=== PATIENT | male | born 1935 | race Caucasian/White ===

== ENCOUNTER 2017-09-16 16:37 | Emergency (ER) | payer MEDICARE, OTHER ==
--- NOTE | 2017-09-16 17:44 | RAD ---
2 VIEW CHEST: Date: 09/16/17 HISTORY: Cough. COMPARISON: 09/04/17. FINDINGS: Elevated right hemidiaphragm again noted. Mild cardiomegaly again noted with mild aortic calcificatio n. Vascular markings are prominent and stable. No focal infiltrate or consolidation. No interval sorensen ge identified. No evidence of effusion. IMPRESSION: Stable chest findings without acute interval change. POS: [facility]
== END 2017-09-16 17:29 | disposition home or self-care (01) ==
LOC: SCSER 16:37
DX: R05 Cough (principal); I25.10 Atherosclerotic heart disease of native coronary artery without angina pectoris; I10 Essential (primary) hypertension; E11.9 Type 2 diabetes mellitus without complications; F32.9 Major depressive disorder, single episode, unspecified; Z87.891 Personal history of nicotine dependence; Z79.82 Long term (current) use of aspirin; Z79.899 Other long term (current) drug therapy
CPT/HCPCS: 71046

== ENCOUNTER 2018-06-04 14:58 | Outpatient (CLI) | payer MEDICARE, OTHER | END 2018-06-04 14:59 | disposition home or self-care (01) | LOC: DTY/OP 14:58 | PROVIDERS: ATTEND Family Medicine | DX: E11.9 Type 2 diabetes mellitus without complications (principal); I10 Essential (primary) hypertension | CPT/HCPCS: 97802 ==

== ENCOUNTER 2018-07-04 08:40 | Outpatient (CLI) | payer MEDICARE, OTHER ==
--- NOTE | 2018-07-04 10:22 | RAD ---
TWO VIEW CHEST: HISTORY: Cardiac pacemaker evaluation. COMPARISON: 09/16/2017. FINDINGS: Dual-lead cardiac pacemaker device has been placed. Atrial lead has somewhat of a midline position. Recommend clinical correlation. The heart is enlarged. There is mild vascular engorgement. The lungs and vascular markings appear s table from 09/16/2017. IMPRESSION: Mild vascular engorgement appears stable. Pacemaker leads have been placed. Recommend correlation r egarding position of the leads. POS: [facility]
== END 2018-07-04 08:41 | disposition home or self-care (01) ==
LOC: BICRAD 08:40
PROVIDERS: ATTEND Internal Medicine Cardiovascular Disease
DX: Z48.812 Encounter for surgical aftercare following surgery on the circulatory system (principal); Z95.0 Presence of cardiac pacemaker
CPT/HCPCS: 71046

== ENCOUNTER 2018-07-08 10:45 | Outpatient (CLI) | payer MEDICARE, OTHER ==
[2018-07-08 12:57] LABS: #Basophils 0.1 thou/uL (0.0-0.2); #Eosinphils 0.3 thou/uL (0.0-0.7); #Lymphocytes 0.9 thou/uL (1.20-3.40); #Monocytes 0.4 thou/uL (0.11-0.59); #Neutrophils 7.5 thou/uL (1.40-6.50); %Basophils 0.7 % (0.0-1.0); %Eosinophils 2.9 % (0.0-10.0); %Lymphocytes 10.2 % (21.0-51.0); %Monocytes 4.6 % (0.0-10.0); %Neutrophils 81.5 % (42.0-75.0); Hemoglobin 13.5 g/dL (14.0-18.0); Mean Corpuscular HGB CONC 33.6 g/dL (32.0-36.0); Mean Corpuscular Hemoglobin 33.3 pg (27.0-31.0); Mean Corpuscular Volume 98.9 fL (78.0-98.0); Mean Platelet Volume 7.6 fL (7.4-10.4); Platelet Count 150 thou/uL (130-400); RBC Distribution Width 12.9 % (11.5-14.5); Red Blood Cell (RBC) Count 4.06 mill/uL (4.70-6.10); White Blood Cell (WBC) Count 9.2 thou/uL (4.8-10.8)
[2018-07-08 13:11] LABS: ALT (SGPT) 27 U/L (8-55); AST (SGOT) 24 U/L (5-34); Albumin 4.1 g/dL (3.4-4.8); Alkaline Phosphatase 90 U/L (40-150); Anion Gap 16 mmol/L (10-20); BUN (Urea Nitrogen) 29 mg/dL (8.4-25.7); Bilirubin, Direct 0.3 mg/dL (0.1-0.3); Bilirubin, Total 0.6 mg/dL (0.2-1.2); Calc. Creatinine Clearance 0 mL/min (70-130); Carbon Dioxide 26 mmol/L (23-31); Chloride 100 mmol/L (98-107); Estimated GFR-MDRD 48; Glucose 170 mg/dL (83-110); Potassium 4.7 mmol/L (3.5-5.1); Protein, Total 7.4 g/dL (5.8-8.1); Sodium 137 mmol/L (136-145)
== END 2018-07-08 10:46 | disposition home or self-care (01) ==
LOC: LABBT 10:45
PROVIDERS: ATTEND Internal Medicine Cardiovascular Disease
DX: Z01.812 Encounter for preprocedural laboratory examination (principal); T82.528A Displacement of other cardiac and vascular devices and implants, initial encounter
CPT/HCPCS: 80048; 80076; 85025

== ENCOUNTER 2018-07-11 05:44 | Inpatient (IN) | payer MEDICARE, OTHER ==
[2018-07-11] MEDS ORDERED: Heparin 10,000 UNITS/1 ML VIAL ONE ×2 (06:24→06:25)
[2018-07-11] MEDS ORDERED: Heparin 0 ML ONE (06:25)
[2018-07-11] MEDS ORDERED: Vancomycin HCl 500 MG VIAL ONE (06:27)
[2018-07-11] MEDS ORDERED: Clindamycin/D5W 900 mg/50 ml Premix Bag ONE (06:27)
[2018-07-11] MEDS ORDERED: Lidocaine 1% (PF) 30 ML VIAL ONE (06:28)
[2018-07-11] MEDS ORDERED: Levofloxacin 500 mg/D5W 100 ml Premix Bag ONE (06:28)
[2018-07-11 07:08] LABS: Cardiac Risk 2.8 (Less than 4.5)
[2018-07-11] MEDS ORDERED: Midazolam HCl 2 mg/2 ml Vial ONE (07:12)
[2018-07-11] MEDS ORDERED: Fentanyl 100 MCG/2 ML VIAL ONE (07:13)
[2018-07-11] MEDS ORDERED: Sodium Chloride 0.9% 1,000 ML IV SCH ×2 (08:30→17:37)
[2018-07-11] MEDS ORDERED: Morphine 2 MG/ML SYRINGE ONE (09:22)
[2018-07-11] MEDS ORDERED: Morphine 4 MG/ML VIAL SLOW IVP SCH (09:30)
--- NOTE | 2018-07-11 11:06 | RAD ---
PORTABLE CHEST 1 VIEW: Date: 07/11/18 Time: 0845 hours HISTORY: Post cardiac device placement. FINDINGS/IMPRESSION: Comparison made with exam of 07/04/18. Left-sided pacemaker device is again seen with unchanged positions of the pacemaker leads. The heart size is enlarged. There is continued elevation of the right hemidiaphragm. No focal areas of consolid ation, pneumothoraces, jasmine pulmonary edema, or large effusions are seen. There is mild pulmonary va scular congestion. POS: [facility]
[2018-07-11 17:40] VITALS: BMI 23.7
[2018-07-11] MEDS ORDERED: Cephalexin 250 MG CAP PO SCH ×2 (17:45→21:00)
[2018-07-11] MEDS: Allopurinol 100 MG TAB PO SCH ×2 (18:21→20:34)
[2018-07-11] MEDS: Magnesium Oxide 400 MG TAB PO SCH (18:21)
[2018-07-11] MEDS: predniSONE 5 MG TAB PO SCH (18:21)
[2018-07-11] MEDS: Aspirin 81 mg Enteric Coated Tablet PO SCH (18:21)
[2018-07-11] MEDS: metFORMIN 500 MG TAB PO SCH (18:24)
[2018-07-11] MEDS: Cipro 250 MG TAB PO SCH (20:34)
[2018-07-11] MEDS: Acetaminophen 325 MG TAB PO PRN (20:50)
[2018-07-11] MEDS ORDERED: Atorvastatin Calcium 40 MG TAB PO SCH (21:00)
[2018-07-12] MEDS: Cipro 250 MG TAB PO SCH (05:42)
[2018-07-12] MEDS: Acetaminophen 325 MG TAB PO PRN (05:44)
[2018-07-12 06:40] LABS: Anion Gap 12 mmol/L (10-20); BUN (Urea Nitrogen) 27 mg/dL (8.4-25.7); Calc. Creatinine Clearance 39 mL/min (70-130); Calcium 8.9 mg/dL (7.8-10.44); Carbon Dioxide 22 mmol/L (23-31); Chloride 108 mmol/L (98-107); Cholesterol 89 mg/dl (< 200 Desired); Estimated GFR-MDRD 48; Glucose 103 mg/dL (83-110); HDL Cholesterol 30 mg/dL (>60 Neg Risk); LDL Cholesterol, Calculated 29 mg/dL; Potassium 4.4 mmol/L (3.5-5.1); Sodium 138 mmol/L (136-145); Triglycerides 152 mg/dL (Less than 150)
[2018-07-12 06:45] LABS: #Basophils 0.1 thou/uL (0.0-0.2); #Eosinphils 0.5 thou/uL (0.0-0.7); #Lymphocytes 1.3 thou/uL (1.20-3.40); #Monocytes 0.6 thou/uL (0.11-0.59); #Neutrophils 4.2 thou/uL (1.40-6.50); %Basophils 1.1 % (0.0-1.0); %Eosinophils 7.3 % (0.0-10.0); %Lymphocytes 19.2 % (21.0-51.0); %Monocytes 9.4 % (0.0-10.0); %Neutrophils 62.9 % (42.0-75.0); Hemoglobin 11.6 g/dL (14.0-18.0); Mean Corpuscular HGB CONC 33.8 g/dL (32.0-36.0); Mean Corpuscular Hemoglobin 33.4 pg (27.0-31.0); Mean Corpuscular Volume 98.8 fL (78.0-98.0); Mean Platelet Volume 7.7 fL (7.4-10.4); PLT Morphology Comment Appears Decreased; Platelet Count 109 thou/uL (130-400); RBC Distribution Width 12.8 % (11.5-14.5); Red Blood Cell (RBC) Count 3.48 mill/uL (4.70-6.10); White Blood Cell (WBC) Count 6.6 thou/uL (4.8-10.8)
--- NOTE | 2018-07-12 07:33 | EKG ---
Test Reason : LEAD REVISION Blood Pressure : / mmHG Vent. Rate : 079 BPM Atrial Rate : 079 BPM P-R Int : 162 ms QRS Dur : 076 ms QT Int : 386 ms P-R-T Axes : 062 -13 088 degrees QTc Int : 442 ms Normal sinus rhythm Inferior infarct (cited on or before 26-NOV-2015) Abnormal ECG When compared with ECG of 26-NOV-2015 12:53, Premature ventricular complexes are no longer Present Nonspecific T wave abnormality has replaced inverted T waves in Lateral leads Confirmed by CARLOS MATA ([id number]) on 07/12/2018 7:33:23 AM Referred By: CHLEY Confirmed By:CARLOS MATA
[2018-07-12] MEDS: Allopurinol 100 MG TAB PO SCH (08:40)
[2018-07-12] MEDS: Magnesium Oxide 400 MG TAB PO SCH (08:40)
[2018-07-12] MEDS: metFORMIN 500 MG TAB PO SCH (08:40)
[2018-07-12] MEDS: Aspirin 81 mg Enteric Coated Tablet PO SCH (08:40)
[2018-07-12] MEDS: predniSONE 5 MG TAB PO SCH (08:41)
[2018-07-12] MEDS ORDERED: Lisinopril 10 MG TAB PO SCH (09:00)
[2018-07-12 11:12] VITALS: BP 171/85; TEMP 97.9
--- NOTE | 2018-07-12 16:51 | DIS ---
DATE OF ADMISSION: 07/11/2018 DATE OF DISCHARGE: 07/12/2018 DISCHARGE DIAGNOSES: 1. Repositioning of dislodged atrial lead. 2. Postsurgical hypotension. 3. Uqxkxztr-pn-shbwye aortic stenosis, asymptomatic. 4. Former smoker. 5. Hypertension. 6. Hypercholesterolemia. 7. Diabetes. 8. Prostate cancer. 9. Dementia. DISCHARGE MEDICATIONS: 1. Cipro 500mg b.i.d. x5 days. 2. Atorvastatin 40 daily. 3. Amlodipine 5 mg daily. 4. Magnesium oxide 400 b.i.d. 5. Prednisone 5 mg q.a.m. 6. Metformin 500 mg b.i.d. 7. Namenda 10 mg b.i.d. 8. Lisinopril 10 daily. DISCHARGE DISPOSITION: The patient will be seen in 1 week for site check and in 3 months for pacemaker check. He is instructed that he needs to use antibiotic prophylaxis for any dental, GI or procedures with the aortic stenosis. HOSPITAL COURSE: Mr. De Guzman was seen in the office on July 03 as a new patient. He had a pacemaker placed on May 20, 2018 in [place]. On interrogation of the pacemaker, it was discovered that with atrial pacing that it would capture the ventricle. Chest x-ray confirmed that the atrial lead was dislodged. He came back for repositioning of the atrial lead. This was performed without difficulty and the lead did not appear to be significantly fibrosed. Towards the end of the procedure, he did develop hypotension with pressure in the 70s, but had no specific complaints. He was given intravenous fluids and ultimately his pressure was stabilized. He did for a short period of time have a sharp pleuritic chest pain after the procedure. A stat echo was performed, which revealed a trivial pericardial effusion. On examination, he did not have any significant paradox. It was felt best to observe him overnight. He did not have any further significant hypotension. He therefore will be discharged to be followed as an outpatient. Job ID: [id number] [facility]
--- NOTE | 2018-07-12 21:52 | CCL ---
PROCEDURE: Atrial lead repositioning. The patient was brought to the cardiac phlebotomist medical lab assistant and the left subclavian area was prepped and draped. Versed 1 mg and Fentanyl 25 mg given intravenously for 45 minutes of conscious sedation. 1% lidocaine was infiltrated. Using blunt and sharp dissection, the pacemaker pocket was opened and the pacemaker was removed. The atrial lead was disconnected from the pacemaker generator. Pulling the atrial lead, I was able to determine which suture tie down was the atrial lead as the atrial lead was fibrosed into the pocket. Pulling from where it was sutured down, the atrial lead was able to be removed without any dissection. The screw was retracted into the atrial lead. Using a straight wire, this was advanced into the right atrium. There was no significant anchoring of the atrial lead to the surrounding tissue. A J-wire was then inserted and the right atrial lead was screwed into the right atrium. Atrial lead/P-wave 1.3, threshold 0.5 volts. Impedance 380 ohms. The RV lead was also tested prior to the case through the pacemaker with resistance of 570 ohms, threshold 0.375 volts. R-wave of 7.0. The atrial tie down was positioned and secured in placed with two sutures of 0 silk. Subcutaneous pocket was irrigated with copious amounts of antibiotics solution. The atrial lead was attached to the pacemaker generator. Again, this was placed into the pocket and secured in place with one suture of 0 silk. The incision was then closed using two layers of running 3-0 Vicryl, one layer of running 4-0 Vicryl. Dermabond was placed on the incision. STEVE
== END 2018-07-12 12:16 | disposition home or self-care (01) | DRG 261 ==
LOC: CCL 05:44 → CCU 11:51 → 2NO 17:36
PROVIDERS: ADMIT Internal Medicine Cardiovascular Disease; ATTEND Internal Medicine Cardiovascular Disease
PROC: 02WA0MZ Revision of Cardiac Lead in Heart, Open Approach (ICD-10-PCS; principal; 2018-07-11)
DX: T82.120A Displacement of cardiac electrode, initial encounter (principal); I31.3 Pericardial effusion (noninflammatory); I95.9 Hypotension, unspecified; I35.0 Nonrheumatic aortic (valve) stenosis; I10 Essential (primary) hypertension; E78.00 Pure hypercholesterolemia, unspecified; E11.9 Type 2 diabetes mellitus without complications; C61 Malignant neoplasm of prostate; F03.90 Unspecified dementia, unspecified severity, without behavioral disturbance, psychotic disturbance, mood disturbance, and anxiety; Z79.82 Long term (current) use of aspirin; Z88.0 Allergy status to penicillin; I25.2 Old myocardial infarction; Z87.891 Personal history of nicotine dependence
CPT/HCPCS: 33215; 36415; 36416; 71045; 80048; 80061; 80076; 85025; 93005; 93010; 93306; 99152; 99153; J1644; J1956; J2001; J2250; J2270; J3010; J3370; J3490

== ENCOUNTER 2018-07-18 21:42 | Observation (INO) | payer MEDICARE, OTHER ==
[2018-07-18 23:14] LABS: #Basophils 0.1 thou/uL (0.0-0.2); #Eosinphils 0.5 thou/uL (0.0-0.7); #Lymphocytes 1.5 thou/uL (1.20-3.40); #Monocytes 0.6 thou/uL (0.11-0.59); %Basophils 0.9 % (0.0-1.0); %Eosinophils 5.5 % (0.0-10.0); %Lymphocytes 17.3 % (21.0-51.0); %Neutrophils 69.2 % (42.0-75.0); Hemoglobin 12.1 g/dL (14.0-18.0); Mean Corpuscular HGB CONC 34.2 g/dL (32.0-36.0); Mean Corpuscular Hemoglobin 33.6 pg (27.0-31.0); Mean Corpuscular Volume 98.1 fL (78.0-98.0); Mean Platelet Volume 7.1 fL (7.4-10.4); Platelet Count 149 thou/uL (130-400); RBC Distribution Width 12.9 % (11.5-14.5); White Blood Cell (WBC) Count 8.7 thou/uL (4.8-10.8)
[2018-07-18 23:34] LABS: ALT (SGPT) 23 U/L (8-55); AST (SGOT) 23 U/L (5-34); Albumin 4.1 g/dL (3.4-4.8); Alkaline Phosphatase 93 U/L (40-150); Anion Gap 13 mmol/L (10-20); BUN (Urea Nitrogen) 55 mg/dL (8.4-25.7); Bilirubin, Total 0.6 mg/dL (0.2-1.2); Calc. Creatinine Clearance 0 mL/min (70-130); Calcium 10.1 mg/dL (7.8-10.44); Carbon Dioxide 32 mmol/L (23-31); Chloride 97 mmol/L (98-107); Estimated GFR-MDRD 27; Globulin 3.4 g/dL (2.4-3.5); Glucose 173 mg/dL (83-110); Potassium 5.3 mmol/L (3.5-5.1); Protein, Total 7.5 g/dL (5.8-8.1); Sodium 137 mmol/L (136-145)
[2018-07-19] MEDS ORDERED: Calcium Carbonate 500 MG ChewTAB PO PRN (02:58)
[2018-07-19] MEDS ORDERED: Acetaminophen 325 MG TAB PO PRN (02:58)
[2018-07-19] MEDS ORDERED: Bisacodyl 5 MG TAB PO PRN (02:58)
[2018-07-19] MEDS ORDERED: Ondansetron PF 4 MG/2 ML Vial IVP PRN (02:58)
[2018-07-19] MEDS ORDERED: Acetaminophen 650 MG Suppository PR PRN (02:58)
[2018-07-19] MEDS ORDERED: Senokot S 8.6-50 MG TAB PO PRN (02:58)
[2018-07-19] MEDS ORDERED: Ondansetron ODT 4 MG TAB PO PRN (02:58)
[2018-07-19] MEDS ORDERED: Bisacodyl 10 MG SUPP PR PRN (02:58)
[2018-07-19] MEDS ORDERED: HumaLOG 300 UNITS/3 ML VIAL SC PRN ×2 (03:01)
[2018-07-19] MEDS ORDERED: Dextrose 5% in Water 1,000 ML IV PRN (03:01)
[2018-07-19] MEDS ORDERED: Dextrose 50% Abboject 50 ML SYRINGE SLOW IVP PRN (03:01)
[2018-07-19 03:51] LABS: #Basophils 0.1 thou/uL (0.0-0.2); #Eosinphils 0.6 thou/uL (0.0-0.7); #Lymphocytes 1.9 thou/uL (1.20-3.40); #Monocytes 0.9 thou/uL (0.11-0.59); %Basophils 1.1 % (0.0-1.0); %Eosinophils 5.5 % (0.0-10.0); %Lymphocytes 17.9 % (21.0-51.0); %Monocytes 8.3 % (0.0-10.0); %Neutrophils 67.3 % (42.0-75.0); Hemoglobin 11.2 g/dL (14.0-18.0); Mean Corpuscular HGB CONC 33.9 g/dL (32.0-36.0); Mean Corpuscular Hemoglobin 33.3 pg (27.0-31.0); Mean Platelet Volume 6.8 fL (7.4-10.4); Platelet Count 131 thou/uL (130-400); RBC Distribution Width 12.8 % (11.5-14.5); Red Blood Cell (RBC) Count 3.38 mill/uL (4.70-6.10); White Blood Cell (WBC) Count 10.4 thou/uL (4.8-10.8)
[2018-07-19 04:16] LABS: Albumin 3.6 g/dL (3.4-4.8); Anion Gap 12 mmol/L (10-20); BUN (Urea Nitrogen) 53 mg/dL (8.4-25.7); BUN/Creatinine Ratio 24.65; Calc. Creatinine Clearance 0 mL/min (70-130); Calcium 9.7 mg/dL (7.8-10.44); Carbon Dioxide 32 mmol/L (23-31); Chloride 100 mmol/L (98-107); Estimated GFR-MDRD 29; Glucose 118 mg/dL (83-110); Phosphorus 4.4 mg/dL (2.3-4.7); Potassium 4.9 mmol/L (3.5-5.1); Sodium 139 mmol/L (136-145)
--- NOTE | 2018-07-19 05:01 | HP ---
HISTORY OF PRESENT ILLNESS: This is an 83-year-old male with past medical history of hypertension, hyperlipidemia, diabetes mellitus, prostate CA, and dementia, presenting with bilateral lower extremity swelling. Patient was recently seen in the hospital for pacemaker not working. One of his pacemaker leads was not placed properly, so patient needed to be admitted to the hospital and pacemaker had to be fixed. After fixing the patient's pacemaker, patient was discharged on Sunday prior to the day of this admission. Patient stated that when he was at home, he started developing bilateral lower extremity edema. At this point, patient went to go see his primary care physician who told the patient to come to the hospital and to be further evaluated. At this point, patient denies any fever, chills, chest pain, palpitations, shortness of breath, abdominal pain, dysuria, hematuria, increase in frequency with urination, hematochezia, melena, fever, dizziness, or chills. Patient endorses bilateral lower extremity edema. REVIEW OF SYSTEMS: Positive for bilateral lower extremities. Otherwise, as documented in the HPI. All other systems were reviewed and are negative. PAST MEDICAL HISTORY: Significant for: 1. Hypertension. 2. Hyperlipidemia. 3. Diabetes mellitus type 2. 4. Prostate CA. 5. Dementia. 6. Kxhvwglk-hj-icvfxu aortic stenosis. 7. Former smoker. SURGICAL HISTORY: 1. Appendectomy. 2. . SOCIAL HISTORY: Patient is a former tobacco smoker. Patient smoked cigarettes for more than 10 years. Patient lives at home alone. Patient denies any illicit drugs. Patient denies any alcohol use. ALLERGIES: PATIENT IS ALLERGIC TO PENICILLINS, PENCICLOVIR ANALOGS. CURRENT MEDICATIONS: Patient takes: 1. Aspirin. 2. Lisinopril. 3. Hydrochlorothiazide. PHYSICAL EXAMINATION: VITAL SIGNS: Blood pressure is 134/61, heart rate is 111, respiratory rate is 18, and temperature is 98.5. GENERAL: Patient is not in any acute distress. Patient is awake, alert, and oriented x3. HEENT: Normocephalic and atraumatic. Pupils are equally round and reactive to light. Extraocular movements are intact. No scleral icterus. No conjunctival pallor. Mucous membranes are moist. NECK: Trachea is midline. Full range of motion. No JVD. LUNGS: Clear to auscultation bilaterally. No wheezing, no rales, no rhonchi appreciated. CARDIAC: Positive S1 and S2. Regular rate and rhythm. No murmurs, no gallops, no rubs appreciated. EXTREMITIES: Patient has 5/5 upper extremity strength with good pulses and patient has 5/5 lower extremity strength. Patient has bilateral pulses at the lower extremities. No edema noted. NEUROLOGIC: Cranial nerves 2 through 12 grossly intact. No neurologic deficits noted. SKIN: Warm, dry, and intact. PSYCHIATRIC: Patient is alert and oriented x3, not in acute distress. IMAGING DATA: Patient's chest x-ray shows cardiomegaly. No infiltrates noted. LABORATORY DATA: WBC is 8.7, hemoglobin is 12.1, hematocrit is 35.3, and platelet count is 149. Sodium is 137, potassium is 5.3, chloride is 97, carbon dioxide is 32, anion gap of 13, BUN is 55, creatinine is 2.28, and glucose is 173. ASSESSMENT AND PLAN: This is an 83-year-old male being admitted for: 1. Acute on chronic kidney injury. At this time, we have consulted Nephrology. We have ordered renal panel. We will follow up on the results in the a.m. We will continue the patient on gentle hydration. We will hold and discontinue all nephrotoxic drugs. 2. Diabetes mellitus type 2. At this point, we will control patient's blood sugar. Patient's blood sugar with insulin sliding scale. 3. Bilateral lower extremity edema. At this point, we are holding of Lasix. We have consulted Nephrology. We will follow up with supervisor powder and primer canning's recommendation. We will also follow up with Cardiology's recommendations. 4. Hyperkalemia. Patient's potassium is 5.3. We will repeat morning labs. We will follow up on morning labs. We will continue patient on current management. 5. Dementia. We will continue patient on home medication. 6. Prostate cancer. At this time, stable. We will continue to monitor the patient. 7. Deep venous thrombosis, gastrointestinal prophylaxis. Job ID: [id number]
--- NOTE | 2018-07-19 08:08 | RAD ---
CHEST ONE VIEW: History: Chest pain. Comparison: 07-11-18 FINDINGS: Heart size is enlarged. Mild pulmonary venous congestion. No pneumothorax. No acute osseous abnormal ity. Dual-lead pacer is in good position. IMPRESSION: Cardiomegaly and mild pulmonary venous congestion. POS: [facility]
--- NOTE | 2018-07-19 08:38 | ULT ---
STANDARD BILATERAL RENAL ULTRASOUND: HISTORY: Renal injury. FINDINGS: Urinary bladder pre-void volume is 265 mL. The right kidney measures 7.7 x 5 x 4.8 cm. The left kid johana measures 9.1 x 5.4 x 5.1 cm. No renal mass, hydronephrosis, or abnormal calcifications. IMPRESSION: No evidence of obstructive uropathy. POS: [facility]
[2018-07-19] MEDS ORDERED: Heparin 1,000 UNITS/ML VIAL ONE (09:37)
[2018-07-19] MEDS ORDERED: Famotidine 20 MG TAB ONE (09:37)
[2018-07-19] MEDS: Aspirin 81 mg Enteric Coated Tablet PO SCH (09:59)
[2018-07-19] MEDS: Amlodipine 5 MG TAB PO SCH (09:59)
[2018-07-19] MEDS: Famotidine 20 MG TAB PO SCH (10:00)
[2018-07-19] MEDS: predniSONE 5 MG TAB PO SCH (10:00)
[2018-07-19] MEDS: Magnesium Oxide 400 MG TAB PO SCH (10:00)
[2018-07-19] MEDS: Famotidine/PF 20 mg/2ml Vial SLOW IVP SCH (14:01)
[2018-07-19] MEDS: Heparin 5,000 UNITS/ML VIAL SC SCH ×2 (14:02→21:37)
[2018-07-19] MEDS ORDERED: Atorvastatin Calcium 40 MG TAB PO SCH (21:00)
--- NOTE | 2018-07-19 22:28 | CON ---
DATE OF CONSULTATION: 07/19/2018 REASON FOR CONSULTATION: Elevated creatinine. HISTORY OF PRESENT ILLNESS: This is an 83-year-old gentleman, who presented to the hospital at 4 a.m. today with a chief complaint of bilateral lower extremity swelling. The patient had a creatinine of 2.82, which improved to 2.15, baseline was 1.7; in 2016, it was 1.3. The patient has had no hematochezia, headache, numbness, tingling or weakness. REVIEW OF SYSTEMS: A 15-point review of systems was performed and negative except for what is noted above. GENERAL: HEAD: NECK: No swelling or lumps. NOSE: No epistaxis or discharge. EYES: No diplopia or pain. RESPIRATORY: CARDIOVASCULAR: GASTROINTESTINAL: /TIMING ADJUSTER: MUSCULOSKELETAL: No joint pain. NEUROPSYCHIATRIC SYSTEMS: No suicidal ideation. No ideation. SKIN: Denies any rash or ulcer. CONSTITUTIONAL: No fever or chills. PAST MEDICAL HISTORY: Significant for hypertension, hyperlipidemia, diabetes mellitus, prostate cancer, dementia, severe , former smoker, and appendectomy. SOCIAL HISTORY: No alcohol or drug use. FAMILY HISTORY: Negative for ESRD. ALLERGIES: REVIEWED. MEDICATIONS: Home medications list reviewed. PHYSICAL EXAMINATION: GENERAL: The patient is awake and alert. VITAL SIGNS: Afebrile, pulse 75, breathing 16, blood pressure was 134/61. GENERAL APPEARANCE AND MENTAL STATUS: Fair. HEAD/NECK: Normocephalic. Atraumatic. EYES: EOMI. No deformity. EARS: Clear. No ulcers. NOSE: Intact. No lesions. MOUTH: Clear. No discharge. THROAT: Clear. No exudate. LUNGS: Clear. No crackles. CARDIAC: S1, S2. No rub. ABDOMEN: Benign. Bowel sounds positive. GENITALIA/RECTUM: Avina absent. BACK/EXTREMITIES: Edema 0+. NEUROLOGICAL: Alert and motor intact. SKIN: LYMPHATICS: LABORATORY DATA: Labs show creatinine 2.1. ASSESSMENT AND PLAN: Acute kidney injury with chronic kidney disease due to cardiorenal syndrome, improved. His renal function get worse. Hypertensive, stable. Anemia, stable. Medication based on GFR appropriate. No indication for dialysis. We will follow renal ultrasound. Job ID: [id number]
[2018-07-19 23:18] VITALS: TEMP 97.6
--- NOTE | 2018-07-20 03:12 | CON ---
DATE OF CONSULTATION: HISTORY OF PRESENT ILLNESS: Ronaldo De Guzman is an 83-year-old white male, initially evaluated on July 03, 2018, in the office. He had a pacemaker placed in [place] due to bradycardia on May 20, 2018. Prior to that, he has had several falls and no true loss of consciousness. After the pacemaker, he had no more falls. The pacemaker was checked and it was found that with atrial pacing, the ventricle was paced. Chest x-ray was performed, which showed that the atrial lead has become dislodged, then on July 11, he underwent repositioning of the atrial lead. No contrast was used. The atrial lead moved freely and was repositioned. After the procedure, the patient was hypotensive and was given intravenous fluids and his blood pressure medications were held. Echocardiogram did not reveal any significant pericardial effusion. The next day, his pressure was back to normal and he was discharged. When he went home, he started to develop bilateral lower extremity edema and went to see his primary physician and was told to go to the emergency room. He denied any chest pain, shortness of breath, or palpitations. He has been found to have an elevated creatinine over his baseline and he is admitted for further evaluation. PAST MEDICAL HISTORY: Hypertension, diabetes, history of myocardial infarction, prostate cancer, dementia, moderate to severe aortic stenosis. OPERATIONS: Appendectomy, pacemaker placement, and tonsillectomy. MEDICATIONS: 1. Aspirin 81 daily. 2. Amlodipine 5 mg daily. 3. Lisinopril 10 mg b.i.d. 4. Atorvastatin 40 mg. 5. Allopurinol 100 mg b.i.d. 6. Prednisone 5 mg daily. 7. Metformin 500 mg b.i.d. 8. Memantine 10 mg b.i.d. ALLERGIES: PENICILLIN. SOCIAL HISTORY: He is a former smoker. He does not drink. REVIEW OF SYSTEMS: A 12-point review of systems is unremarkable. PHYSICAL EXAMINATION: VITAL SIGNS: Blood pressure 114/60, pulse is 65. HEENT: PERRL. NECK: Supple. CHEST: Clear. CARDIAC: S1 and S2 normal without any S3 or S4. There is a 2/6 systolic ejection murmur. ABDOMEN: Normal bowel sounds without tenderness or organomegaly. EXTREMITIES: Reveal 1+ pretibial edema. NEUROLOGIC: Grossly intact. SKIN: Warm and dry. LABORATORY DATA: Hemoglobin 11.2, hematocrit 33.1, white count 10,400, platelets 131,000. Sodium 139, potassium 4.9, chloride 100, carbon dioxide 32, BUN 53, creatinine 2.15, his creatinine before was 1.40. IMPRESSION: 1. Acute kidney injury of uncertain etiology. 2. Status post pacemaker placement with recent atrial lead repositioning. The pacemaker was placed in [place]. 3. Hypotension after pacemaker placement, which responded to intravenous fluids with no evidence of tamponade. 4. Hdkpknlw-tu-xtdjxz aortic stenosis, asymptomatic. 5. Former smoker. 6. Hypertension. 7. Hypercholesterolemia. 8. Diabetes. 9. Prostate cancer. 10. Dementia. PLAN: The patient's pacemaker was interrogated and it continued to show normal function. Also echocardiogram was performed today which revealed no evidence of pericardial effusion with ejection fraction of 55% to 60%, pacing wire in the right ventricle, mild left atrial enlargement, moderate mitral regurgitation, moderate to severe aortic stenosis, mild aortic regurgitation, and mild to moderate tricuspid regurgitation. From a cardiac standpoint, he appears to be stable. Job ID: [id number]
[2018-07-20 06:32] LABS: Anion Gap 12 mmol/L (10-20); BUN (Urea Nitrogen) 41 mg/dL (8.4-25.7); Calc. Creatinine Clearance 0 mL/min (70-130); Calcium 9.4 mg/dL (7.8-10.44); Carbon Dioxide 29 mmol/L (23-31); Chloride 102 mmol/L (98-107); Estimated GFR-MDRD 35; Glucose 105 mg/dL (83-110); Potassium 5.1 mmol/L (3.5-5.1); Sodium 138 mmol/L (136-145)
[2018-07-20 07:35] VITALS: BP 129/67
[2018-07-20] MEDS: Aspirin 81 mg Enteric Coated Tablet PO SCH (07:54)
[2018-07-20] MEDS: Magnesium Oxide 400 MG TAB PO SCH (07:54)
[2018-07-20] MEDS: Amlodipine 5 MG TAB PO SCH (07:54)
[2018-07-20] MEDS: Famotidine 20 MG TAB PO SCH (07:55)
[2018-07-20] MEDS: predniSONE 5 MG TAB PO SCH (07:55)
[2018-07-20] MEDS: Famotidine/PF 20 mg/2ml Vial SLOW IVP SCH (07:55)
[2018-07-20] MEDS: Heparin 5,000 UNITS/ML VIAL SC SCH (07:55)
--- NOTE | 2018-07-20 10:28 | PRG ---
DATE OF SERVICE: 07/20/2018 SUBJECTIVE: This is an 83-year-old gentleman being seen for acute kidney injury. The patient denies any nausea, vomiting, or chest pain. OBJECTIVE: CONSTITUTIONAL: On examination, the patient is awake, alert. VITAL SIGNS: Afebrile, pulse 75, breathing 16, and blood pressure 129/67. GENERAL APPEARANCE AND MENTAL STATUS: Fair. HEAD/NECK: Normocephalic. Atraumatic. EYES: EOMI. No deformity. EARS: Clear. No ulcers. NOSE: Intact. No lesions. MOUTH: Clear. No discharge. THROAT: Clear. No exudate. LUNGS: Clear. No crackles. CARDIAC: S1, S2. No rub. ABDOMEN: Benign. Bowel sounds positive. GENITALIA/RECTUM: Avina absent. BACK/EXTREMITIES: Edema 0+. NEUROLOGICAL: Alert and motor intact. LABORATORY DATA: Labs show hemoglobin 11.2. Creatinine 1.8. ASSESSMENT AND RECOMMENDATIONS: 1. Acute kidney injury stage 4. 2. Hypertension, stable. 3. Anemia, stable. 4. Medication based on glomerular filtration rate are medication. No indication for dialysis. The patient will follow up to see me in 1 to 2 weeks. Job ID: [id number]
--- NOTE | 2018-07-20 11:20 | DIS ---
DATE OF ADMISSION: 07/19/2018 DATE OF DISCHARGE: 07/20/2018 PRIMARY CARE PHYSICIAN: Pee Adames DO PRIMARY MANAGER ADOBE: Carlos Clarke MD PRIMARY FINANCE ATTORNEY: Naif Goodman MD DISCHARGE DIAGNOSES: 1. Acute kidney injury on chronic kidney disease. 2. Over-diuresis. 3. 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 4. Diabetes mellitus type 2 without complications. 5. Coronary artery disease. 6. Essential hypertension. CONSULTATIONS: 1. Cardiology, Dr. Carlos Clarke. 2. Nephrology, Dr. Naif Goodman. PROCEDURES: Echocardiogram 07/19/2018 showed normal ejection fraction valves. HISTORY AND PHYSICAL: Mr. De Guzman is an 83-year-old male with chronic kidney disease presented to the emergency department for increased lower extremity edema. Workup in the ER showed him to have an increased creatinine and we were subsequenlty called for admission for possible need for dialysis. HOSPITAL COURSE: The patient was seen and examined by Dr. Chito Lugo, and placed on observation status. He was gently hydrated. The Lasix and metformin, and lisinopril/hydrochlorothiazide were held. Creatinine improved from 2.28 to 1.84, and was cleared by Nephrology today and Cardiology last night to go home. The patient was feeling much better and was stable for discharge. PHYSICAL EXAMINATION: The patient was seen and examined on the day of discharge. DISCHARGE PLAN: Disposition discussed with the patient and son [id number] at the bedside. DISCHARGE MEDICATIONS: New medication: Lasix 20 mg daily, decreased from 40 mg daily. Lisinopril/hydrochlorothiazide and metformin on hold until he sees his primary care physician and curtain framer. The remainder of his home medications will be continued. Please see medicine reconciliation. FOLLOW UP APPOINTMENTS: 1. Primary care physician, Dr. Adames, within a week. 2. Dr. Goodman, within a week with labs. 3. Dr. Clarke, per his clinic. DISCHARGE ACTIVITY: Per cardiopulmonary limits. DISCHARGE DIET: Heart healthy, renal, diabetic diet recommended. DISCHARGE CONDITION: Stable. DISPOSITION: Discharged home via private vehicle. Job ID: [id number]
== END 2018-07-20 11:37 | disposition home or self-care (01) ==
LOC: ERS 21:42 → ERHOLD 07-19 01:08 → 2SW 07-19 15:44
PROVIDERS: ADMIT Internal Medicine; ATTEND Internal Medicine
DX: I13.0 Hypertensive heart and chronic kidney disease with heart failure and stage 1 through stage 4 chronic kidney disease, or unspecified chronic kidney disease (principal); E11.22 Type 2 diabetes mellitus with diabetic chronic kidney disease; N18.9 Chronic kidney disease, unspecified; I50.33 Acute on chronic diastolic (congestive) heart failure; N17.9 Acute kidney failure, unspecified; I25.10 Atherosclerotic heart disease of native coronary artery without angina pectoris; E78.5 Hyperlipidemia, unspecified; I35.0 Nonrheumatic aortic (valve) stenosis; F03.90 Unspecified dementia, unspecified severity, without behavioral disturbance, psychotic disturbance, mood disturbance, and anxiety; C61 Malignant neoplasm of prostate; E87.5 Hyperkalemia; I25.2 Old myocardial infarction; E78.00 Pure hypercholesterolemia, unspecified; Z87.891 Personal history of nicotine dependence; Z79.82 Long term (current) use of aspirin; Z79.899 Other long term (current) drug therapy; Z88.0 Allergy status to penicillin; Z95.0 Presence of cardiac pacemaker; R60.9 Edema, unspecified; R53.1 Weakness; R20.2 Paresthesia of skin
CPT/HCPCS: 71045; 76770; 80048; 80069; 82607; 82962; 83880; 84484; 85025; 93005; 93306; 99284; G0378 ×2; 36415; 36416; 80053; 84443; J1644

== ENCOUNTER 2018-09-03 13:05 | Inpatient (IN) | payer MEDICARE, OTHER ==
[2018-09-03 13:49] LABS: #Basophils 0.1 thou/uL (0.0-0.2); #Eosinphils 0.5 thou/uL (0.0-0.7); #Lymphocytes 0.5 thou/uL (1.20-3.40); #Monocytes 0.8 thou/uL (0.11-0.59); #Neutrophils 8.9 thou/uL (1.40-6.50); %Basophils 0.7 % (0.0-1.0); %Eosinophils 4.7 % (0.0-10.0); %Lymphocytes 4.4 % (21.0-51.0); %Monocytes 7.2 % (0.0-10.0); Hemoglobin 13.8 g/dL (14.0-18.0); Mean Corpuscular HGB CONC 33.5 g/dL (32.0-36.0); Mean Corpuscular Volume 98.4 fL (78.0-98.0); Mean Platelet Volume 6.9 fL (7.4-10.4); Platelet Count 130 thou/uL (130-400); RBC Distribution Width 12.6 % (11.5-14.5); Red Blood Cell (RBC) Count 4.19 mill/uL (4.70-6.10); White Blood Cell (WBC) Count 10.7 thou/uL (4.8-10.8)
--- NOTE | 2018-09-03 13:51 | CT ---
CT OF THE BRAIN WITHOUT CONTRAST: Date: 09/03/18 COMPARISON: 11/27/15. HISTORY: Fell and hit head, with headache and right shoulder pain. TECHNIQUE: Multiple contiguous axial images were obtained in a CT of the brain without contrast. FINDINGS: There are scattered hypodensities in the subcortical and periventricular white matter, likely seconda ry to small vessel ischemic disease. No large confluent infarction is seen. There is no evidence of h ydrocephalus, intracranial hemorrhage, or extra-axial fluid collections. The calvarium and overlying soft tissues are unremarkable. The visualized paranasal sinuses and masto id air cells are well aerated. IMPRESSION: No evidence of acute intracranial abnormality. POS: [facility]
[2018-09-03 14:08] LABS: ALT (SGPT) 76 U/L (8-55); AST (SGOT) 69 U/L (5-34); Albumin 4.1 g/dL (3.4-4.8); Alkaline Phosphatase 186 U/L (40-150); Anion Gap 15 mmol/L (10-20); BUN (Urea Nitrogen) 36 mg/dL (8.4-25.7); Bilirubin, Total 1.2 mg/dL (0.2-1.2); Calc. Creatinine Clearance 0 mL/min (70-130); Calcium 10.2 mg/dL (7.8-10.44); Carbon Dioxide 32 mmol/L (23-31); Chloride 94 mmol/L (98-107); Estimated GFR-MDRD 35; Globulin 3.2 g/dL (2.4-3.5); Glucose 168 mg/dL (83-110); Potassium 4.7 mmol/L (3.5-5.1); Protein, Total 7.3 g/dL (5.8-8.1); Sodium 136 mmol/L (136-145)
--- NOTE | 2018-09-03 14:25 | CT ---
CT CERVICAL SPINE WITHOUT CONTRAST: HISTORY: Pain. Unwitnessed fall. COMPARISON: Cervical spine CT from 2016. FINDINGS: The odontoid process is intact. The occipital condyles are intact. No acute fracture or malalignment. Severe facet arthropathy on the right at C3-C5. There is narrowi ng of the space between the posterior elements of C2-C4. No facet joint widening. The lung apices are clear. The thyroid is unremarkable. The paraspinal so ft tissues are unremarkable. IMPRESSION: No acute fracture or malalignment of the cervical spine. POS: [facility]
--- NOTE | 2018-09-03 14:27 | RAD ---
CHEST 1 VIEW: Date: 09/03/18 HISTORY: Trauma. Fall. COMPARISON: Radiograph dated 07/18/18. FINDINGS: Heart size is enlarged. Mild pulmonary venous congestion. Chronic blunting left lateral costophrenic sulcus, likely a combination of increased pericardial fat and atelectasis. No pneumothorax. Dual lead pacer is similar. IMPRESSION: Mild cardiomegaly and pulmonary venous congestion, otherwise no acute intrathoracic abnormality. POS: [facility]
[2018-09-03 14:29] LABS: CKMB 1.8 ng/mL (0-6.6)
[2018-09-03] MEDS ORDERED: Acetaminophen 500 MG TAB ONE (15:01)
[2018-09-03] MEDS ORDERED: cefTRIAXone\\ROCEPHIN 1 GM VIAL ONE (15:01)
[2018-09-03 15:14] LABS: Bilirubin Negative (Negative); Blood, Urine Moderate (Negative); Clarity CLEAR (Clear); Glucose, Urine (Dipstick) Negative (Negative); Leukocyte Trace (Negative); Nitrite Negative (Negative); Protein, Urine (Dipstick) 30 mg/dL (Neg-Trace); Specific Gravity, Urine 1.007 (1.002-1.036); Urobilinogen 0.2 mg/dL (0.2-1.0); pH, Urine 7.5 (5.0-9.0)
[2018-09-03 15:16] LABS: Bacteria/HPF None Seen HPF (None Seen); Hyaline Casts/LPF 0-3 HYALINE CAST LPF (0-3 Hyaline); RBC/HPF 21-50 HPF (0-3); Squamous Epithelial 0-3 HPF (0-3)
--- NOTE | 2018-09-03 16:10 | ULT ---
RIGHT UPPER QUADRANT ULTRASOUND: Date: 09/03/18 HISTORY: Right upper quadrant pain. FINDINGS: Liver demonstrates increased echogenicity consistent with fatty infiltration. No gallstones, gallblad deo wall thickening, or pericholecystic fluid is seen. The gallbladder wall is upper limits of normal , measuring 3.0 mm in thickness. The common duct and pancreas are not visualized. No free fluid is se en in Morison's pouch. The right kidney is unremarkable. IMPRESSION: 1. Fatty liver. 2. No evidence of cholelithiasis. POS: [facility]
[2018-09-03 16:21] LABS: Prothrombin Time 13.4 SEC (12.0-14.7)
[2018-09-03] MEDS ORDERED: Ketorolac Tromethamine 30 MG/ML VIAL ONE (17:07)
[2018-09-03 17:21] LABS: CSF Source CSF; Clarity Clear (Clear); Tube # 4
[2018-09-03 17:27] LABS: RBC Count - Manual 13 /cumm (None Seen); WBC/NonHematics Count - Manual 1 /cumm (0-5)
[2018-09-03 17:35] LABS: CSF Source CSF; Clarity Clear (Clear); RBC Count - Manual 162 /cumm (None Seen); Tube # 1; WBC/NonHematics Count - Manual 1 /cumm (0-5)
[2018-09-03 17:36] LABS: CSF, Glucose 96 mg/dl (40-70); CSF, Protein 64 mg/dL (15-40)
[2018-09-03 17:43] LABS: Lactic Acid 1.5 mmol/L (0.5-2.2)
[2018-09-03 18:04] LABS: Color Of CSF Supernatant COLORLESS (Colorless); Unspun CSF Color COLORLESS (Colorless)
[2018-09-03 18:05] LABS: Tube # 1
[2018-09-03 18:35] LABS: CKMB 5.9 ng/mL (0-6.6)
[2018-09-03] MEDS ORDERED: Ondansetron ODT 4 MG TAB PO PRN (20:30)
[2018-09-03] MEDS ORDERED: Sodium Chloride 0.9% 1,000 ML IV SCH (20:30)
[2018-09-03] MEDS ORDERED: Acetaminophen 325 MG TAB PO PRN (20:30)
[2018-09-03] MEDS ORDERED: Ondansetron PF 4 MG/2 ML Vial IVP PRN (20:30)
[2018-09-03] MEDS ORDERED: Dextrose 50% Abboject 50 ML SYRINGE SLOW IVP PRN (20:34)
[2018-09-03] MEDS ORDERED: Dextrose 5% in Water 1,000 ML IV PRN (20:34)
[2018-09-03] MEDS: Magnesium Oxide 400 MG TAB PO SCH (21:55)
[2018-09-03] MEDS: Atorvastatin Calcium 40 MG TAB PO SCH (21:55)
[2018-09-03 22:17] VITALS: BMI 23.7
--- NOTE | 2018-09-04 03:06 | HP ---
PRIMARY CARE DOCTOR: Dr. Pee Adames. CODE STATUS: DNR/DNI as discussed with the patient and son. TIME OF EVALUATION: 8 p.m. CHIEF COMPLAINT: The patient came after a fall, he passed out. HISTORY OF PRESENT ILLNESS: This is an 83-year-old male patient with past medical history of CKD, CAD, hypertension, diabetes, prostate cancer, pacemaker implantation, came to the hospital after having an episode of fall associated with total loss of consciousness. The patient hit his head on the floor, with no clear triggers. No alleviating factors. Symptoms were severe. Symptoms started suddenly. The family found him on the floor and then called EMS. The patient also had associated confusion. REVIEW OF SYSTEMS: CONSTITUTIONAL: No fever or chills. The patient reported generalized weakness. RESPIRATORY: No cough, sputum production, or shortness of breath. CARDIOVASCULAR: No chest pain or palpitation. GASTROINTESTINAL: No nausea or vomiting. The patient reported he had some diarrhea, abdominal pain GUARD RANGE: The patient had an episode of syncope with total loss of consciousness. No headache or feeling lightheaded. GENITOURINARY: No burning on urination. The patient has a Avina with significant hematuria. EXTREMITIES: No leg swelling. All other systems were reviewed and negative except for the findings mentioned above. PAST MEDICAL HISTORY: Positive and mentioned in the HPI. FAMILY HISTORY: Reviewed and noncontributory for current presentation. PSYCH HISTORY: Depression. PAST SURGICAL HISTORY: Prostate cancer, appendectomy, tonsillectomy. SOCIAL HISTORY: No alcohol. No drugs. Former tobacco user. Smokes cigarettes. The patient quit smoking more than 10 years ago. ALLERGIES: KNOWN ALLERGIES TO PENICILLIN. REPORTED MEDICATIONS: 1. Prednisone. 2. Metformin. 3. Aspirin. 4. Magnesium oxide. 5. Atorvastatin. 6. Lasix. PHYSICAL EXAMINATION: VITAL SIGNS: On presentation, blood pressure 166/103, with heart rate 119, respiratory rate was 18, temperature 98.7, pain 0/10. Oxygen saturation 95 on room air. GENERAL APPEARANCE: The patient is alert, mildly disoriented, in no acute distress. HEENT: Eyes, normal conjunctivae. Moist oral mucosa. Anicteric. No JVD. RESPIRATORY: Bilateral air entry. No rales. No wheezing. Symmetric expansion. CARDIOVASCULAR: Normal rate, regular rhythm. No murmurs. No gallops. No edema. The patient initially was tachycardic. ABDOMEN: Soft. Normal bowel sounds. MUSCULOSKELETAL: Baseline range of motion and strength. No tenderness. SKIN: Warm, intact. No pallor. No rash. No redness. Peripheral pulses are present. Capillary refill seems to be intact. NEURO: No evidence of any new focal weakness. Baseline speech. Cranial nerves seem to be intact. PSYCH: Unable to fully explore. The patient is disoriented. DIAGNOSTIC DATA: EKG was reviewed. The patient has sinus tachycardia at a rate of [address] 144, QRS 78, and QT corrected 433, left ventricular hypertrophy with repolarization abnormalities. LABORATORY DATA: Labs were reviewed. The patient has white count of 10.7, hemoglobin 13.8, MCV 98.4, platelet count 130. Coagulation; PT 13.4, INR 1.0, PTT 29. Chemistry, sodium 136, potassium 4.7, chloride 94, carbon dioxide 32, anion gap 15, BUN 36, creatinine 1.85. In the previous records, the patient has a creatinine of 2.0. GFR 35. Glucose 168, repeat one was 172. Lactic acid 2.4 on presentation, the second one was 1.5. Calcium 10.2, bilirubin 1.2, AST 69, ALT 76, alkaline phosphatase 186. CK-MB 1.8, the second one 5.9. Troponin 0.061 and repeat one was 1.668. Beta-natriuretic peptide 184. UA was done and the patient has some hematuria with 21 to 50 red cells and white count 7 to 10. The patient also received LP where white count was 1, RBCs was 13, glucose 96, and total protein 64. ASSESSMENT AND PLAN: The patient will be placed in the hospital with following medical problems: 1. Syncope, unclear etiology. The patient has total loss of consciousness. The patient has a pacemaker that reportedly has been interrogated recently with no abnormalities. We will do echo, carotid Doppler. We will follow reports. Monitor on tele. Dr. Plascencia has been consulted non-STEMI. He will see the patient. We will follow recommendations. 2. Pll-OE-chxvqiley myocardial infarction. The patient has initial troponin of 0.061, the second one 1.6. I have discussed the case with Dr. Plascencia. We will follow recommendation in the morning. Given hematuria and recent LP, we will hold on aspirin anticoagulation at this point unless the patient becomes symptomatic for acute coronary syndrome or becomes unstable. 3. Urinary tract infection remains as a possibility. The patient has white count of 7 to 10. The patient also had drugs in urine. The patient also has a fever on presentation with tachycardia, possible sepsis secondary to urinary tract infection. The patient has been started on antibiotics and we will continue for now. We will follow cultures and we will adjust the antibiotics after the sensitivity. 4. History of coronary artery disease, probably new acute coronary syndrome with a troponin of 1.6. Treatment as above. 5. Uncontrolled diabetes. The patient presented with hyperglycemia. We will place the patient on sliding scale for optimal control. 6. Uncontrolled hypertension. The patient presented with systolic 166 and diastolic 103, reconcile home medications. We will adjust treatment as needed. 7. Deep venous thrombosis prophylaxis. 8. Chronic kidney disease. BUN and creatinine in the same range as in the previous presentations. We will monitor kidney function, we will treat accordingly. 9. History of pacemaker. Interrogation was done recently and reportedly was functioning properly. 10. Deep venous thrombosis prophylaxis. The patient has hematuria. Put the patient on SCDs. 11. Risk assessment, high risk due to kyx-VI-[id number] myocardial infarction. Job ID: [id number]
[2018-09-04 05:07] LABS: #Basophils 0.1 thou/uL (0.0-0.2); #Eosinphils 0.4 thou/uL (0.0-0.7); #Lymphocytes 0.6 thou/uL (1.20-3.40); #Monocytes 0.8 thou/uL (0.11-0.59); #Neutrophils 6.8 thou/uL (1.40-6.50); %Basophils 0.8 % (0.0-1.0); %Eosinophils 4.6 % (0.0-10.0); %Lymphocytes 6.9 % (21.0-51.0); %Monocytes 9.2 % (0.0-10.0); %Neutrophils 78.6 % (42.0-75.0); Hemoglobin 11.7 g/dL (14.0-18.0); Mean Corpuscular HGB CONC 33.7 g/dL (32.0-36.0); Mean Corpuscular Volume 97.9 fL (78.0-98.0); Mean Platelet Volume 7.7 fL (7.4-10.4); Platelet Count 116 thou/uL (130-400); Platelet Morphology Comment Appears Decreased; RBC Distribution Width 12.5 % (11.5-14.5); Red Blood Cell (RBC) Count 3.54 mill/uL (4.70-6.10); White Blood Cell (WBC) Count 8.6 thou/uL (4.8-10.8)
[2018-09-04 05:09] LABS: Anion Gap 16 mmol/L (10-20); BUN (Urea Nitrogen) 38 mg/dL (8.4-25.7); Calc. Creatinine Clearance 33 mL/min (70-130); Calcium 8.8 mg/dL (7.8-10.44); Carbon Dioxide 26 mmol/L (23-31); Chloride 99 mmol/L (98-107); Estimated GFR-MDRD 40; Glucose 150 mg/dL (83-110); Potassium 4.5 mmol/L (3.5-5.1); Sodium 136 mmol/L (136-145)
--- NOTE | 2018-09-04 07:50 | ULT ---
CAROTID ULTRASOUND WITH SHARPE SCALE AND DOPPLER DUPLEX COLOR FLOW IMAGING SPECTRAL ANALYSIS PERFORMED: CLINICAL INDICATION: Syncope. FINDINGS: There is mild scattered atherosclerotic calcification of the carotid arteries. PEAK SYSTOLIC VELOCITY (CM/S): Right CCA 68 Left CCA 56 Right ICA 58 Left ICA 47 There is antegrade bilateral flow within the visualized bilateral vertebral arteries. IMPRESSION: 1. No hemodynamically significant stenosis of the right internal carotid artery. 2. No hemodynamically significant stenosis of the left internal carotid artery. POS: ANURADHA
[2018-09-04] MEDS ORDERED: Furosemide 20 MG TAB PO SCH (09:00)
[2018-09-04] MEDS ORDERED: Prevnar 13-Val Conj/PF 0.5 ML SYRINGE IM ONE (09:00)
[2018-09-04] MEDS ORDERED: Vancomycin HCl 1.5 GM in Sodium Chloride 0.9% 250 ML 300 ML IVPB SCH (10:15)
[2018-09-04] MEDS: D5 1/2 NS w/20 mEq KCL 1,000 ML IV SCH ×2 (11:14→19:19)
[2018-09-04] MEDS ORDERED: Iopamidol 370 76% 100 ML VIAL ONE (11:26)
--- NOTE | 2018-09-04 12:39 | PDOC.PN ---
- Subjective Encounter Start Date: 09/04/18 Encounter Start Time: 12:37 Subjective: feels poorly.. weak and tired. 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 -: c/o dry mouth - Objective Resuscitation Status - Order Detail: 09/03/18 20:53 Resuscitation Status Routine Resuscitation Status: DNAR: NO Resuscitation Discussed with: as discussed with patient and son OSMANI Reviewed: Yes Vital Signs & Weight: Vital Signs (12 hours) Temp Pulse Resp BP Pulse Ox 09/04/18 08:00 98.8 F 98 20 127/73 99 09/04/18 04:00 98.9 F 103 H 20 147/83 H 98 Weight Weight 156 lb 3.2 oz I&O: 09/03/18 09/04/18 09/05/18 06:59 06:59 06:59 Intake Total 120 Output Total 475 Balance -355 Result Diagrams: 09/04/18 04:08 09/04/18 04:08 Additional Labs: Accuchecks 09/04/18 09/04/18 10:35 05:54 POC Glucose 140 H 153 H Microbiology 09/03/18 17:15 Nasal swab Influenza Types A,B Direct EIA - Final 09/03/18 16:37 Spinal Fluid Culture - Pending Body Fluid Culture - Preliminary 09/03/18 15:04 Venous blood - Left Hand Blood Culture - Preliminary 09/03/18 14:53 Urine Straight Catheter Urine Culture - Preliminary 09/03/18 13:34 Venous blood - Right Arm Blood Culture - Preliminary Enterococcus faecalis Laboratory Tests 09/03/18 09/03/18 09/03/18 13:30 17:15 19:45 Troponin I 0.061 H 0.752 H* 1.668 H* Phys Exam - Physical Examination pale. HEENT: PERRLA, sclera anicteric, oral pharynx no lesions mucosa dry Neck: no nodes, no JVD, supple, full ROM Respiratory: no wheezing, no rales, no rhonchi, clear to auscultation bilateral Cardiovascular: RRR, no significant murmur Gastrointestinal: soft, non-tender, no distention, positive bowel sounds Musculoskeletal: no edema, pulses present Neurological: non-focal, normal sensation, moves all 4 limbs Psychiatric: normal affect, A&O x 3 Skin: no rash Dx/Plan (1) NSTEMI (non-ST elevated myocardial infarction) Code(s): I21.4 - NON-ST ELEVATION (NSTEMI) MYOCARDIAL INFARCTION Status: Acute (2) Sepsis Code(s): A41.9 - SEPSIS, UNSPECIFIED ORGANISM Status: Acute (3) Hematuria Code(s): R31.9 - HEMATURIA, UNSPECIFIED Status: Acute (4) Enterococcal bacteremia Code(s): R78.81 - BACTEREMIA; B95.2 - ENTEROCOCCUS THE CAUSE OF DISEASES CLASSIFIED ELSEWHERE Status: Acute Comment: 1/2 Blood Cx (5) DM2 (diabetes mellitus, type 2) Status: Chronic (6) HTN (hypertension) Code(s): I10 - ESSENTIAL (PRIMARY) HYPERTENSION Status: Chronic (7) CKD (chronic kidney disease) stage 3, GFR 30-59 ml/min Code(s): N18.3 - CHRONIC KIDNEY DISEASE, STAGE 3 (MODERATE) Status: Chronic (8) Aortic stenosis Code(s): I35.0 - NONRHEUMATIC AORTIC (VALVE) STENOSIS Status: Chronic Qualifiers: Cardiac valve disease etiology: nonrheumatic Qualified Code(s): I35.0 - Nonrheumatic aortic (valve) stenosis Comment: moderate to severe (9) Pacemaker Code(s): Z95.0 - PRESENCE OF CARDIAC PACEMAKER Status: Chronic (10) CAD (coronary artery disease) Code(s): I25.10 - ATHSCL HEART DISEASE OF [place] CORONARY ARTERY W/O ANG PCTRS Status: Chronic (11) H/O prostate cancer Code(s): Z85.46 - PERSONAL HISTORY OF MALIGNANT NEOPLASM OF PROSTATE Status: Chronic (12) Chronic diastolic CHF (congestive heart failure), NYHA class 3 Code(s): I50.32 - CHRONIC DIASTOLIC (CONGESTIVE) HEART FAILURE Status: Acute - Plan plan discussed w/ family, continue antibiotics, PT/OT, out of bed/ambulate, DVT proph w/SCDs pt very dry. hold lasix. start IVF.monitor -: cont ABx .folow Cx. Consult ID given 07/24 +ve Cx -: Cardiac enzymes high. ? NSTEMI Vs demand ischemia from dehydration/sepsis -: DC Metformin given h/o CKD. follows w -: apprecite urology recs for concerns of hematuria. Abx for suspected UTI * .Hd stable. * cardiology recs requested * Avoid ASA given hematuria. * am labs * DNR Review of Systems - Review of Systems Constitutional: fever, chills, sweats, weakness, malaise. negative: other ENT: negative: Ear Pain, Ear Discharge, Nose Pain, Nose Discharge, Nose Congestion, Mouth Pain, Mouth Swelling, Throat Pain, Throat Swelling, Other Respiratory: Dry. negative: Cough, Shortness of Breath, Hemoptysis, SOB with Excertion, Pleuritic Pain, Sputum, Wheezing Cardiovascular: negative: chest pain, palpitations, orthopnea, paroxysmal nocturnal dyspnea, edema, light headedness, other Gastrointestinal: negative: Nausea, Vomiting, Abdominal Pain, Diarrhea, Constipation, Melena, Hematochezia, Other Genitourinary: negative: Dysuria, Frequency, Incontinence, Hematuria, Retention , Other Musculoskeletal: negative: Neck Pain, Shoulder Pain, Arm Pain, Back Pain, Hand Pain, Leg Pain, Foot Pain, Other Neurological: negative: Weakness, Numbness, Incoordination, Change in Speech, Confusion, Seizures, Other - Medications/Allergies Allergies/Adverse Reactions: Allergies Allergy/AdvReac Type Severity Reaction Status Date / Time Penicillins Allergy Verified 09/03/18 22:05 Medications: Current Medications Acetaminophen (Tylenol) 650 mg PO Q4H PRN PRN Reason: Headache/Fever/Mild Pain (1-3) Atorvastatin Calcium (Lipitor) 40 mg PO HS [facility] Last Admin: 09/03/18 21:55 Dose: 40 mg Dextrose/Water (Dextrose 50%) 25 gm SLOW IVP PRN PRN PRN Reason: Hypoglycemia Furosemide (Lasix) 20 mg PO Q2D@0900 [facility] Glucagon (Glucagon) 1 mg IM PRN PRN PRN Reason: Hypoglycemia Dextrose/Water (D5w) 1,000 mls @ 0 mls/hr IV .Q0M PRN PRN Reason: Hypoglycemia Ceftriaxone Sodium 1 gm/ (Sodium Chloride) 100 mls @ 200 mls/hr IVPB Q24HR OTILIA Vancomycin HCl 1.5 gm/ Sodium (Chloride) 300 mls @ 200 mls/hr IVPB ONCALL-OR [facility] Last Admin: 09/04/18 11:01 Dose: 300 mls Potassium Chloride/Dextrose/Sod Cl (D5 1/2 Ns W/20 Meq Kcl) 1,000 mls @ 125 mls /hr IV .Q8H [facility] Last Admin: 09/04/18 11:14 Dose: 1,000 mls Insulin Human Lispro (Humalog) 0 units SC .MILD SLIDING SCALE PRN PRN Reason: Mild Correctional Scale Magnesium Oxide (Magnesium Oxide) 800 mg PO BID [facility] Last Admin: 09/03/18 21:55 Dose: 800 mg Memantine (Namenda) 10 mg PO BID [facility] Last Admin: 09/03/18 21:55 Dose: 10 mg Ondansetron HCl (Zofran Odt) 4 mg PO Q6H PRN PRN Reason: Nausea/Vomiting Ondansetron HCl (Zofran) 4 mg IVP Q6H PRN PRN Reason: Nausea/Vomiting Prednisone (Prednisone) 5 mg PO DAILY OTILIA
[2018-09-04] MEDS: Magnesium Oxide 400 MG TAB PO SCH ×2 (12:43→21:52)
[2018-09-04] MEDS: predniSONE 5 MG TAB PO SCH ×3 (12:43→16:24)
--- NOTE | 2018-09-04 13:54 | CT ---
CT ABDOMEN AND PELVIS WITH AND WITHOUT IV CONTRAST: 09/04/2018 HISTORY: Prostate cancer. Hematuria. COMPARISON: None available. FINDINGS: Partial visualization of cardiac pacemaker leads are noted. There is trace pericardial fluid. There is mild bibasilar atelectasis and/or scarring present. A nonobstructing inferior pole left renal calculus is noted, measuring 5 mm. No additional renal or ureteral calculi are seen bilaterally, and there is no hydronephrosis. An extrarenal pelvis is prese nt on the left. A subcentimeter, unq-abwzs-xi-characterize hypodense lesion is seen in the superior pole of the left kidney. No enhancing renal mass is seen bilaterally. The liver, spleen, pancreas, and bilateral adrenal glands demonstrate a normal CT appearance. The urinary bladder is decompressed with a Avina catheter in place. Multiple metallic radiotherapy s eeds are seen within the prostate gland, which is small in volume. There are enumerable colonic diverticula involving the sigmoid colon and, to a lesser extent, involvi ng the descending colon, but also scattered throughout the colon. Dense atherosclerotic vascular calcifications with scattered atherosclerotic plaque are seen in the a bdominal aorta and involving the iliac arteries. There is ectasia of the right common iliac artery w ith eccentric atherosclerotic plaque present. Similar finding, to a lesser extent, involves the left common iliac artery. There is a very small, saccular type aneurysm, measuring 10 mm, involving the distal aspect of the right internal iliac artery. A curvilinear calcification is seen posteriorly in the infrarenal abdominal aorta, just proximal to the aortic bifurcation, which could be related to c alcified eccentric atherosclerotic plaque or a partially calcified focal aortic dissection. 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 No free fluid, fluid collection, or lymphadenopathy is seen in the abdomen or pelvis. A small hiatal hernia is present. Loops of small bowel are normal in caliber. Mild degenerative changes are noted in the spine. IMPRESSION: 1. No acute findings are seen in the abdomen or pelvis. 2. Colonic diverticulosis, more diffuse involving the sigmoid colon. 3. 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 4. 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 5. Dense atherosclerotic vascular calcifications. 6. Nonobstructing left renal calculus. No additional renal or ureteral calculi are seen bilaterally , and there is no hydronephrosis. No enhancing renal lesion is identified. 7. Small hiatal hernia. 8. Transitional vertebra at the lumbosacral junction with fusion of the right lateral mass of L5 wit h S1. POS: JARRETT
[2018-09-04] MEDS: cefTRIAXone\\ROCEPHIN 1 GM in Sodium Chloride 0.9% 100 ML IVPB SCH (15:40)
--- NOTE | 2018-09-04 18:02 | CON ---
DATE OF CONSULTATION: 09/04/2018 REASON FOR CONSULTATION: Bacteremia. HISTORY OF PRESENT ILLNESS: An 83-year-old, who has history of coronary artery disease, hypertension, type 2 diabetes, and prostate cancer in remission, as well as a pacemaker implantation for management of sick sinus syndrome, who sustained a fall due to syncopal event after he got up. He never completely lost his mental state. He did hit his head though. EMS was activated and brought him to the hospital. On arrival, his BP was 160/100, heart rate 119, and temperature 98.7. He is mildly disoriented, and lungs and heart examination was not particularly remarkable except for tachycardia. Skin was normal. EKG shows sinus tachycardia. White cell count 10.7, platelets 130,000, INR 1.0, potassium 4.7, carbon dioxide 32, creatinine 1.85 with a baseline of 2. Glucose 168, lactic acid 2.4, bilirubin 1.2, AST 69, ALT 76, calcium 10.2. BNP was 184. Urinalysis with 21 to 50 rbc's, 7 to 10 wbc's. Because of his mental status changes, he had a spinal tap. Only 1 wbc per high power field seen. Protein 64, glucose 96. The initial impression was syncope of unclear etiology, hgh-RI-tacowot elevation [place] and now, we have 1 set of blood cultures positive for Enterococcus faecalis and now we have one urine sample submitted also with the same organism apparently. The other set of blood cultures is negative thus far. The patient does recall a few days of dysuria before the event. Currently, he is awake, he is more oriented, recognizes family members in the room. No headaches. No visual symptoms, sore throat, odynophagia, or dysphagia. No dyspnea or chest pain. No back pain. No abdominal pain. He is voiding with an indwelling Avina catheter assistance. PAST MEDICAL HISTORY: Type 2 diabetes, prostate cancer in remission, coronary artery disease, sick sinus syndrome with recent pacemaker placement, episodes of fall in the past with most recent one due to this syncopal event, probably from the UTI with invasive features. FAMILY HISTORY: Noncontributory. PAST SURGICAL HISTORY: Appendectomy, tonsillectomy, and prostate cancer resection. ALLERGIES: PENICILLIN WITH RASH. MEDICATIONS: 1. Prednisone. 2. Metformin. 3. Aspirin. 4. Atorvastatin. 5. Lasix. SOCIAL HISTORY: Former smoker. He lives by himself. No alcoholic beverage use. PHYSICAL EXAMINATION: VITAL SIGNS: T-max 101.1, currently 98.8, blood pressure 140/70, pulse 100, respirations 18, and O2 saturation 94% to 97%. SKIN: Shows area of bruising in the left elbow with laceration measuring about 1 cm in length by 0.3 cm in diameter. There is some bruising around the elbow area as well. Peripheral IV access and a Avina catheter. HEENT: Ocular movements conjugate. The patient has no significant findings in the oral cavity exam. NECK: Supple. LUNGS: Symmetric. Clear breath sounds. HEART: S1 and S2, regular rate without murmurs. Pacemaker pocket site appears normal. ABDOMEN: Soft. Not distended or tender. No ascites. No bladder distention. MUSCULOSKELETAL: No joint inflammatory activity. EXTREMITIES: He moves extremities equally. NEUROLOGIC: His cognitive function is almost back to normal. He is still a little sluggish in his replies, but his orientation is good. Follows commands. LABORATORY DATA: Latest labs. White cell count 8.6, hemoglobin 11.7, platelets 116. Sodium 136, creatinine 1.65. The CSF findings have been discussed, microbiology as well. The patient had an abdomen and pelvis CT done on 09/04 and this showed no acute findings, diverticulosis, a thrombosed aneurysm in distal aspect of celiac artery, nonobstructing left renal calculus. ASSESSMENT: 1. Prostate cancer, in remission. 2. Type 2 diabetes, coronary artery disease with sick sinus syndrome and pacemaker placement. 3. Syncopal event with Enterococcus faecalis bacteremia, likely due to urinary tract infection either prostatitis or pyelonephritis. I believe he had resection of the prostate, so pyelonephritis would be more likely. We will await for the final susceptibility testing of the organism, typically Enterococcus faecalis is almost 100% susceptible to beta-lactams including penicillin. In this case, one would be able to transition him to amoxicillin. I believe that the penicillin allergy is not going to be an impediment to that. If the allergy history does not reflect hives or any more severe history, then I would challenge him with amoxicillin while in the hospital to see if we could plan discharge on amoxicillin, which would make it easier. Otherwise, we will have to choose a different antimicrobial. It looks like the second set of followup blood cultures will remain negative. In that case, the possibility of pacemaker involvement would be much less. Job ID: [id number]
[2018-09-04] MEDS: HumaLOG 300 UNITS/3 ML VIAL SC PRN (18:20)
--- NOTE | 2018-09-04 18:23 | CON ---
DATE OF CONSULTATION: 09/04/2018 HISTORY OF PRESENT ILLNESS: This is an 83-year-old white male whom I was asked to see today because of some gross hematuria and possible urinary tract infection. He was admitted yesterday. He had fallen at home. I think he developed a fever also in the emergency center when he was here. According to the family, he probably had in and out catheterization followed by placement of a Avina catheter. He has urinalysis from yesterday done at about 3 in the afternoon that showed 21-50 red cells, 7-10 white cells, and no bacteria. Urine culture has been sent, but it had some young growth but nowhere near close being finalized. He did have blood cultures done and he does have an Enterococcus growing in one of two blood cultures. He does have a Avina catheter and his urine is grossly bloody. It is kind of a brownish color, maroon color right now. The family is with him states he has really been that way since the Avina was put in. According to the patient, he has not had blood in his urine prior. He has however been having some burning with urination probably for quite some time. He cannot really put a time on it and he has had some urgency and frequency for quite some time. Just over last few days, he has felt like he was having some fevers and some chills. His other urologic history is positive for prostate cancer, was treated with brachytherapy and he has done in the late , not sure of the doctor's name that had initially seen him. As far as he knows, he has done fine and from a prostate cancer standpoint, I do not think he has had any recent PSA blood test done through this area. As far as he and the family know, this was not an active problem. His white count was normal when he came in yesterday. Hemoglobin was 13.8 and 11.7 today. His creatinine is 1.65 with a BUN of 38. This is a bit better when he came in, it was 1.85 when he came in. His lactic acid was elevated when he came in yesterday. He had an ultrasound of the abdomen done yesterday and I think it was just a right upper quadrant ultrasound that did not show any evidence of gallstones. He has not had a CAT scan of the abdomen done. MEDICAL HISTORY: He does have a history of chronic kidney disease. I think he is seeing one of the local development rep for that. He does have a history of some heart disease, hypertension, diabetes. He had a pacemaker done in the past. He does have a distant history of prostate cancer. He does have a history of appendectomy, tonsillectomy, brachytherapy for prostate cancer. ALLERGIES: HE HAS AN ALLERGY TO CIGARETTE SMOKING. MEDICINES: His regular medicines are: 1. Prednisone. 2. Metformin. 3. Aspirin. 4. Atorvastatin. 5. Lasix. 6. Magnesium oxide. PHYSICAL EXAMINATION: He has no flank tenderness currently. His abdomen is flat, a little uncomfortable, but no rebound, no guarding. The penis is uncircumcised without phimosis. Catheters draining greenish brownish colored urine with occasional clot. It looks like in the tubing. Bladder does not feel to be distended. The testicles are descended. There is no masses or tenderness. Rectal exam reveals normal rectal tone. The prostate is flat. There is no nodularity. There are no rectal lesions. IMPRESSION: 1. Gross hematuria, which it is unclear if this is a new finding or just related to his prior radiation and the fact that he now has an indwelling Avina catheter. It does not appear like he is currently in clot retention related to this, so I do not think we need to start him on bladder irrigation at this point. The fact is the urine in the tubing appears to be somewhat clearing. It does not appear that he is currently on any type of blood thinner, although he did get some Toradol in the Emergency Center yesterday. 2. Possible urinary tract infection. He has an Enterococcus in his blood, which certainly could be a urinary tract pathogen. The urine culture is young right now, so it could be a while before I know this, but I think with the Enterococcus in the urine, we should add vancomycin coverage. He has already been receiving Rocephin. I also recommend because of the hematuria and possible urinary tract source of potential sepsis that we do a noncontrast CAT scan to make sure not dealing with an obstructing ureteral stone or anything that would suggest abscess. So, I have ordered that to be done. Also I talked with the hospitalist about starting some IV fluid replacement on him. I will follow along with you and check a CT scan as returns. Job ID: [id number]
[2018-09-04] MEDS: Atorvastatin Calcium 40 MG TAB PO SCH (21:52)
[2018-09-05] MEDS: D5 1/2 NS w/20 mEq KCL 1,000 ML IV SCH ×3 (01:17→14:01)
[2018-09-05 06:16] LABS: #Basophils 0.1 thou/uL (0.0-0.2); #Eosinphils 0.3 thou/uL (0.0-0.7); #Lymphocytes 0.9 thou/uL (1.20-3.40); #Monocytes 0.8 thou/uL (0.11-0.59); #Neutrophils 5.4 thou/uL (1.40-6.50); %Basophils 0.9 % (0.0-1.0); %Eosinophils 4.1 % (0.0-10.0); %Lymphocytes 12.6 % (21.0-51.0); %Monocytes 10.7 % (0.0-10.0); %Neutrophils 71.7 % (42.0-75.0); Mean Corpuscular HGB CONC 33.2 g/dL (32.0-36.0); Mean Corpuscular Hemoglobin 32.8 pg (27.0-31.0); Mean Corpuscular Volume 98.6 fL (78.0-98.0); Mean Platelet Volume 6.6 fL (7.4-10.4); Platelet Count 110 thou/uL (130-400); RBC Distribution Width 12.5 % (11.5-14.5); Red Blood Cell (RBC) Count 3.36 mill/uL (4.70-6.10); White Blood Cell (WBC) Count 7.5 thou/uL (4.8-10.8)
[2018-09-05 06:32] LABS: Anion Gap 12 mmol/L (10-20); BUN (Urea Nitrogen) 35 mg/dL (8.4-25.7); Calc. Creatinine Clearance 37 mL/min (70-130); Calcium 8.3 mg/dL (7.8-10.44); Carbon Dioxide 26 mmol/L (23-31); Chloride 99 mmol/L (98-107); Estimated GFR-MDRD 45; Glucose 194 mg/dL (83-110); Potassium 4.3 mmol/L (3.5-5.1); Sodium 133 mmol/L (136-145)
[2018-09-05] MEDS: Magnesium Oxide 400 MG TAB PO SCH ×2 (09:30→21:42)
[2018-09-05] MEDS: predniSONE 5 MG TAB PO SCH (09:30)
[2018-09-05] MEDS: HumaLOG 300 UNITS/3 ML VIAL SC PRN ×3 (09:39→18:51)
[2018-09-05 11:08] LABS: CKMB 4.2 ng/mL (0-6.6)
--- NOTE | 2018-09-05 13:29 | PDOC.PN ---
- Subjective Encounter Start Date: 09/05/18 Encounter Start Time: 13:27 Subjective: feels much better today. still not eating much -: but denies any CP/SOB/abd pain/N/V/D - Objective Resuscitation Status - Order Detail: 09/03/18 20:53 Resuscitation Status Routine Resuscitation Status: DNAR: NO Resuscitation Discussed with: as discussed with patient and son OSMANI Reviewed: Yes Vital Signs & Weight: Vital Signs (12 hours) Temp Pulse Pulse Pulse Resp BP BP 09/05/18 11:38 99.7 F H 84 17 09/05/18 09:25 93 93 123/70 121/69 09/05/18 08:15 97.9 F 85 24 H 09/05/18 04:20 97.9 F 81 22 H BP Pulse Ox Pulse Ox Pulse Ox 09/05/18 11:38 129/76 96 09/05/18 09:25 98 97 09/05/18 08:15 141/78 H 97 09/05/18 04:20 137/67 93 L Weight Weight 156 lb 12.8 oz I&O: 09/04/18 09/05/18 09/06/18 06:59 06:59 06:59 Intake Total 120 2180 Output Total 475 1125 Balance -355 1055 Result Diagrams: 09/05/18 05:50 09/05/18 05:49 Additional Labs: Accuchecks 09/05/18 09/05/18 09/04/18 10:58 05:25 16:40 POC Glucose 209 H 203 H 232 H Microbiology 09/03/18 17:15 Nasal swab Influenza Types A,B Direct EIA - Final 09/03/18 16:37 Spinal Fluid Culture - Pending Body Fluid Culture - Preliminary 09/03/18 15:04 Venous blood - Left Hand Blood Culture - Preliminary Presumptive Enterococcus sp. 09/03/18 14:53 Urine Straight Catheter Urine Culture - Preliminary Enterococcus faecalis 09/03/18 13:34 Venous blood - Right Arm Blood Culture - Preliminary Enterococcus faecalis Laboratory Tests 07/18/18 08/08/18 09/03/18 23:00 12:26 13:30 Creatinine 2.09 H Troponin I Less than 0.010 0.061 H 09/03/18 09/03/18 09/03/18 13:30 17:15 19:45 Creatinine 1.85 H Troponin I 0.752 H* 1.668 H* 09/04/18 09/05/18 09/05/18 04:08 05:49 05:49 Creatinine 1.65 H 1.48 H Troponin I 1.127 H* Phys Exam - Physical Examination Constitutional: NAD HEENT: PERRLA, moist MMs, sclera anicteric, oral pharynx no lesions Neck: no nodes, no JVD, supple, full ROM Cardiovascular: RRR, no significant murmur, no rub Gastrointestinal: soft, non-tender, no distention, positive bowel sounds dark urine in bag w/o blood/clots Musculoskeletal: no edema, pulses present Neurological: non-focal, normal sensation, moves all 4 limbs Psychiatric: normal affect, A&O x 3 Skin: no rash Dx/Plan (1) NSTEMI (non-ST elevated myocardial infarction) Code(s): I21.4 - NON-ST ELEVATION (NSTEMI) MYOCARDIAL INFARCTION Status: Acute (2) Sepsis Code(s): A41.9 - SEPSIS, UNSPECIFIED ORGANISM Status: Acute Comment: Enterococcal bacteremia and UTI (3) Hematuria Code(s): R31.9 - HEMATURIA, UNSPECIFIED Status: Acute (4) Enterococcal bacteremia Code(s): R78.81 - BACTEREMIA; B95.2 - ENTEROCOCCUS THE CAUSE OF DISEASES CLASSIFIED ELSEWHERE Status: Acute Comment: 2/2 Blood Cx (5) DM2 (diabetes mellitus, type 2) Status: Chronic Comment: Stop metformin given CRYSTAL/CKD (6) HTN (hypertension) Code(s): I10 - ESSENTIAL (PRIMARY) HYPERTENSION Status: Chronic (7) CKD (chronic kidney disease) stage 3, GFR 30-59 ml/min Code(s): N18.3 - CHRONIC KIDNEY DISEASE, STAGE 3 (MODERATE) Status: Chronic (8) Aortic stenosis Code(s): I35.0 - NONRHEUMATIC AORTIC (VALVE) STENOSIS Status: Chronic Qualifiers: Cardiac valve disease etiology: nonrheumatic Qualified Code(s): I35.0 - Nonrheumatic aortic (valve) stenosis Comment: moderate to severe (9) Pacemaker Code(s): Z95.0 - PRESENCE OF CARDIAC PACEMAKER Status: Chronic Comment: (10) CAD (coronary artery disease) Code(s): I25.10 - ATHSCL HEART DISEASE OF [place] CORONARY ARTERY W/O ANG PCTRS Status: Chronic (11) H/O prostate cancer Code(s): Z85.46 - PERSONAL HISTORY OF MALIGNANT NEOPLASM OF PROSTATE Status: Chronic (12) Chronic diastolic CHF (congestive heart failure), NYHA class 3 Code(s): I50.32 - CHRONIC DIASTOLIC (CONGESTIVE) HEART FAILURE Status: Chronic Comment: Compensated. ECHO 09/05/18 - Plan plan discussed w/ family, continue antibiotics, PT/OT, respiratory therapy, incentive spirometry, out of bed/ambulate, DVT proph w/SCDs cont empiric ABx.clinically better. -: awaiting final urology recs regarding UTI in setting of H/o prostate cancer -: reduce IVF given chr CHF. Renal Fx much improved. has CKD as well -: DC metfromin and pt & family educated. start glipizide.add glucerna -: Cardiology recs awaited. no ASA d/t hematuria.lasix on hold due to CRYSTAL * .rehab eval.discussed w pt and family and they agreeable * am labs Review of Systems - Review of Systems Constitutional: weakness, malaise ENT: negative: Ear Pain, Ear Discharge, Nose Pain, Nose Discharge, Nose Congestion, Mouth Pain, Mouth Swelling, Throat Pain, Throat Swelling, Other Respiratory: negative: Cough, Dry, Shortness of Breath, Hemoptysis, SOB with Excertion, Pleuritic Pain, Sputum, Wheezing Cardiovascular: negative: chest pain, palpitations, orthopnea, paroxysmal nocturnal dyspnea, edema, light headedness, other Genitourinary: negative: Dysuria, Frequency, Incontinence, Hematuria, Retention , Other Musculoskeletal: negative: Neck Pain, Shoulder Pain, Arm Pain, Back Pain, Hand Pain, Leg Pain, Foot Pain, Other Neurological: negative: Weakness, Numbness, Incoordination, Change in Speech, Confusion, Seizures, Other - Medications/Allergies Allergies/Adverse Reactions: Allergies Allergy/AdvReac Type Severity Reaction Status Date / Time Penicillins Allergy Verified 09/03/18 22:05 Medications: Current Medications Acetaminophen (Tylenol) 650 mg PO Q4H PRN PRN Reason: Headache/Fever/Mild Pain (1-3) Last Admin: 09/04/18 16:23 Dose: 650 mg Atorvastatin Calcium (Lipitor) 40 mg PO HS OTILIA Last Admin: 09/04/18 21:52 Dose: 40 mg Dextrose/Water (Dextrose 50%) 25 gm SLOW IVP PRN PRN PRN Reason: Hypoglycemia Glucagon (Glucagon) 1 mg IM PRN PRN PRN Reason: Hypoglycemia Dextrose/Water (D5w) 1,000 mls @ 0 mls/hr IV .Q0M PRN PRN Reason: Hypoglycemia Ceftriaxone Sodium 1 gm/ (Sodium Chloride) 100 mls @ 200 mls/hr IVPB Q24HR [facility] Last Admin: 09/04/18 15:40 Dose: 100 mls Vancomycin HCl 1.5 gm/ Sodium (Chloride) 300 mls @ 200 mls/hr IVPB ONCALL-OR [facility] Last Admin: 09/04/18 11:01 Dose: 300 mls Potassium Chloride/Dextrose/Sod Cl (D5 1/2 Ns W/20 Meq Kcl) 1,000 mls @ 75 mls/ hr IV .[id number] [facility] Last Admin: 09/05/18 10:21 Dose: Not Given Insulin Human Lispro (Humalog) 0 units SC .MILD SLIDING SCALE PRN PRN Reason: Mild Correctional Scale Last Admin: 09/05/18 11:44 Dose: 3 unit Magnesium Oxide (Magnesium Oxide) 800 mg PO BID [facility] Last Admin: 09/05/18 09:30 Dose: 800 mg Memantine (Namenda) 10 mg PO BID [facility] Last Admin: 09/05/18 09:30 Dose: 10 mg Ondansetron HCl (Zofran Odt) 4 mg PO Q6H PRN PRN Reason: Nausea/Vomiting Ondansetron HCl (Zofran) 4 mg IVP Q6H PRN PRN Reason: Nausea/Vomiting Prednisone (Prednisone) 5 mg PO DAILY [facility] Last Admin: 09/05/18 09:30 Dose: 5 mg Sodium Chloride (Flush - Normal Saline) 10 ml IVF Q12HR [facility] Last Admin: 09/05/18 09:30 Dose: 10 ml Sodium Chloride (Flush - Normal Saline) 10 ml IVF PRN PRN PRN Reason: Saline Flush
--- NOTE | 2018-09-05 13:37 | PDOC.EVN ---
Event Note - Event Note Event Note: ACP NOte- Discussed finding with pt and relayed that he might want to discuss surgical options w cardiology as he likely has a syncopal episode MANAGER MAC this time.Pt noted to be a DNR/DNI . Discussed that he will be high risk for Sx anyway if recommended and not a candidate given DNR status. Pt feels that he wants to change his code status as his previous decision was made when he was feeling very sick Explained what it means to be DNR/DNI Vs Full code and he wants to be a full code for now. Notified RN taking care of him today and order entered in [facility] Total time spent in discussion w pt and family at bedside-17 minutes
[2018-09-05] MEDS: cefTRIAXone\\ROCEPHIN 1 GM in Sodium Chloride 0.9% 100 ML IVPB SCH (14:52)
[2018-09-05] MEDS ORDERED: VANCOMYCIN IVPB PRN (17:25)
--- NOTE | 2018-09-05 17:55 | PRG ---
DATE OF SERVICE: 09/05/2018 SUBJECTIVE: The patient feels better. A little bit anorectic. No chest pain. No dyspnea. No diarrhea. No genitourinary symptoms. PHYSICAL EXAMINATION: VITAL SIGNS: T-max 99.7, blood pressure 160/80, pulse 84, respirations 17, O2 saturation 96%. SKIN: Examination shows areas of bruising which are unchanged. LUNGS: Clear. HEART: S1 and S2. Regular rate. ABDOMEN: Soft, nondistended. DIAGNOSTIC DATA: White cell count 7.5, hemoglobin 11, platelets 110,000. Creatinine 1.48, which is down from admission. Troponin 1.127. Microbiology with a enterococcus from 2 sets of blood cultures and urine culture. The echocardiogram report showed the EF 40% to 45%, mildly depressed LV function. Pacer wire in the right ventricle, moderate aortic stenosis present. ASSESSMENT AND DISCUSSION: 1. Prostate cancer in remission. 2. Type 2 diabetes. 3. Sick sinus syndrome and pacemaker placement. 4. Syncopal event with Enterococcus faecalis bacteremia, likely due to urinary tract infection, either prostatitis or pyelonephritis. Currently, he is receiving vancomycin. He has a history of allergy to penicillin. I am not so sure about it. Actually, he had only a single dose prescribed, we will order a scheduled vancomycin dosing with a target trough of 15 mcg/mL. I think we will be able to challenge him with amoxicillin to allow eventual discharge planning on amoxicillin which would facilitate disposition. Regarding his TN, he still has to discuss options with Cardiology and the aortic stenosis as well. Job ID: [id number]
[2018-09-05] MEDS ORDERED: Vancomycin HCl 1.25 GM in Sodium Chloride 0.9% 250 ML 250 ML IVPB SCH (18:00)
--- NOTE | 2018-09-05 19:37 | CON ---
DATE OF CONSULTATION: HISTORY: Ronaldo De Guzman is a pleasant 83-year-old white male who initially evaluated in the office on July 03, 2018. He had a pacemaker placed in [place] due to bradycardia on May 20, 2018. Prior to that, he had several falls, but no true loss of consciousness. After the pacemaker was placed, he had no more falls. The pacemaker was checked in the office, and it was found that with atrial pacing, the ventricle was paced. Chest x-ray was performed, which showed that the atrial lead had become dislodged and was in the ventricle. On July 11, 2018, he underwent repositioning of the atrial lead. No contrast was used. The atrial lead moved freely and was repositioned. He was somewhat hypotensive after the procedure, was given intravenous fluids, and his blood pressure medications were held. Echocardiogram did not reveal any significant pericardial effusion. Next, his pressures were back to normal. He was discharged. After he went home, he began to develop bilateral lower extremity edema, went to see his primary physician, and he was told to go to the emergency room. He denied any chest pain, shortness of breath, or palpitations. He had an elevated creatinine over his baseline with increased from 1.40 to 2.15. He was gently hydrated. Lasix, metformin, and lisinopril/hydrochlorothiazide were held. Creatinine improved from 2.28 to 1.84. His Lasix dose was decreased from 40 down to 20. He has been seen in the office once since that discharge and was doing well. Yesterday, he had a fall and hit his head. The family found him on the floor. He denies any chest discomfort or shortness of breath. He does not recall the incident. PAST MEDICAL HISTORY: Hypertension, diabetes, history of myocardial infarction, prostate cancer, dementia, and moderate aortic stenosis. OPERATIONS: Appendectomy, pacemaker placement, and tonsillectomy. MEDICATIONS: 1. Aspirin 81 daily. 2. Atorvastatin 40 at bedtime. 3. Furosemide 20 every other day. 4. Magnesium oxide 800 b.i.d. 5. Metformin 500 mg t.i.d. 6. Prednisone 5 mg daily. ALLERGIES: PENICILLIN. SOCIAL HISTORY: He is a former smoker. He does not drink. REVIEW OF SYSTEMS: A 12-point review of systems is otherwise unremarkable. PHYSICAL EXAMINATION: VITAL SIGNS: Blood pressure 141/78 and 129/76 and pulse of 84. HEENT: PERRL. NECK: Supple. CHEST: Clear. CARDIAC: S1 and S2 normal without any S3 or S4. There is a 1/6 to 2/6 systolic murmur in the aortic area. ABDOMEN: Normal bowel sounds without tenderness or organomegaly. EXTREMITIES: Revealed no clubbing, cyanosis, or edema. NEUROLOGIC: Grossly intact. SKIN: Warm and dry. LABORATORY DATA: The patient has Enterococcus faecalis in 2/2 blood cultures and in urine culture. Hemoglobin 11.0, hematocrit 33.1, platelets 110,000, and white count 7500. Sodium 133, potassium 4.3, chloride 99, carbon dioxide 26, BUN 35, and creatinine 1.48. Troponin I 1.127 and 1.668. BNP 184.4. Echocardiogram revealed ejection fraction of 40% to 45% with evidence for diastolic dysfunction, pacing wire in the right side of the heart, mild mitral regurgitation, moderate aortic stenosis, mild tricuspid regurgitation, aortic valve area is 1.3 to 1.4 sq cm. Carotid Doppler revealed no hemodynamically significant stenosis. Abdominal and pelvic CT did not show any significant abnormalities. There was atherosclerosis of the arteries. IMPRESSION: 1. Episode of syncope, probably due to urosepsis. 2. Status post pacemaker placement in [place] with repositioning of atrial lead here in June. The patient already continues to function well with normal sensing and pacing. I doubt that his episode of syncope had anything to do with any cardiac arrhythmia. 3. Moderate aortic stenosis. I do not feel that his episode of syncope was related to his aortic stenosis. 4. Former smoker. 5. Hypertension. 6. Hypercholesterolemia. 7. Diabetes. 8. Prostate cancer. 9. Dementia. 10. The patient is do not resuscitate. PLAN: At the present time, I do not feel any further cardiac evaluation is warranted. His increased troponin Is most likely represent demand ischemia from his urosepsis and renal insufficiency. We will continue to follow the patient with you and will continue to follow him as an outpatient with serial echocardiograms. However, with the patient being do not resuscitate, I am not sure how aggressive they want to be from the standpoint of replacing his aortic valve. Job ID: [id number] MTDD
[2018-09-05] MEDS: Atorvastatin Calcium 40 MG TAB PO SCH (21:42)
[2018-09-06] MEDS ORDERED: Furosemide 40 MG/4 ML VIAL SLOW IVP SCH (00:45)
[2018-09-06] MEDS: D5 1/2 NS w/20 mEq KCL 1,000 ML IV SCH (03:54)
[2018-09-06 06:01] LABS: #Basophils 0.1 thou/uL (0.0-0.2); #Eosinphils 0.8 thou/uL (0.0-0.7); #Lymphocytes 1.3 thou/uL (1.20-3.40); #Neutrophils 6.5 thou/uL (1.40-6.50); %Basophils 0.7 % (0.0-1.0); %Eosinophils 7.9 % (0.0-10.0); %Lymphocytes 13.3 % (21.0-51.0); %Monocytes 10.1 % (0.0-10.0); Hemoglobin 11.3 g/dL (14.0-18.0); Mean Corpuscular Hemoglobin 32.7 pg (27.0-31.0); Mean Platelet Volume 7.2 fL (7.4-10.4); Platelet Count 116 thou/uL (130-400); RBC Distribution Width 12.6 % (11.5-14.5); Red Blood Cell (RBC) Count 3.45 mill/uL (4.70-6.10); White Blood Cell (WBC) Count 9.6 thou/uL (4.8-10.8)
[2018-09-06 06:12] LABS: Anion Gap 13 mmol/L (10-20); BUN (Urea Nitrogen) 29 mg/dL (8.4-25.7); Calc. Creatinine Clearance 33 mL/min (70-130); Calcium 8.7 mg/dL (7.8-10.44); Carbon Dioxide 28 mmol/L (23-31); Chloride 102 mmol/L (98-107); Estimated GFR-MDRD 40; Glucose 138 mg/dL (83-110); Potassium 4.3 mmol/L (3.5-5.1); Sodium 139 mmol/L (136-145)
[2018-09-06] MEDS: predniSONE 5 MG TAB PO SCH (08:48)
[2018-09-06] MEDS: Magnesium Oxide 400 MG TAB PO SCH ×2 (08:48→22:04)
[2018-09-06] MEDS: Carvedilol 6.25 MG TAB PO SCH ×2 (09:06→16:25)
[2018-09-06] MEDS: glyBURIDE 2.5 MG TAB PO SCH (09:06)
[2018-09-06] MEDS: HumaLOG 300 UNITS/3 ML VIAL SC PRN ×2 (11:50→17:55)
--- NOTE | 2018-09-06 12:55 | PDOC.PN ---
- Subjective Encounter Start Date: 09/06/18 Encounter Start Time: 12:54 Subjective: feels much better.no fever/chills -: no CP/SOB - Objective Resuscitation Status - Order Detail: 09/05/18 13:28 Resuscitation Status Routine Resuscitation Status: FULL: Full Resuscitation Discussed with: discussed w pt. see ACP note MAR Reviewed: Yes Vital Signs & Weight: Vital Signs (12 hours) Temp Pulse Resp BP BP Pulse Ox 09/06/18 11:48 98.3 F 95 18 128/73 92 L 09/06/18 07:35 97.8 F 104 H 16 166/92 H 92 L 09/06/18 04:00 97.9 F 87 18 142/82 H 93 L Weight Weight 156 lb 12.8 oz I&O: 09/05/18 09/06/18 09/07/18 06:59 06:59 06:59 Intake Total 2180 1858 314 Output Total 1125 3075 Balance 1055 -1217 314 Result Diagrams: 09/06/18 05:36 09/06/18 05:36 Additional Labs: Accuchecks 09/06/18 09/06/18 09/05/18 11:21 05:23 20:14 POC Glucose 211 H 139 H 251 H 09/05/18 09/04/18 17:15 20:56 POC Glucose 221 H 202 H Microbiology 09/03/18 17:15 Nasal swab Influenza Types A,B Direct EIA - Final 09/03/18 15:04 Venous blood - Left Hand Blood Culture - Final Enterococcus faecalis 09/03/18 14:53 Urine Straight Catheter Urine Culture - Final Enterococcus faecalis 09/03/18 13:34 Venous blood - Right Arm Blood Culture - Final Enterococcus faecalis 09/03/18 16:37 Spinal Fluid Culture - Pending Body Fluid Culture - Preliminary Laboratory Tests 07/20/18 07/30/18 08/08/18 06:10 09:00 12:26 Creatinine 1.84 H 1.82 H 2.09 H 09/03/18 09/04/18 09/05/18 13:30 04:08 05:49 Creatinine 1.85 H 1.65 H 1.48 H 09/06/18 05:36 Creatinine 1.63 H Phys Exam - Physical Examination Constitutional: NAD HEENT: PERRLA, moist MMs, sclera anicteric, oral pharynx no lesions Neck: no nodes, no JVD, supple, full ROM Respiratory: no wheezing, no rales, no rhonchi Cardiovascular: RRR, no significant murmur Gastrointestinal: soft, non-tender, no distention, positive bowel sounds Musculoskeletal: no edema, pulses present Neurological: non-focal, normal sensation, moves all 4 limbs Psychiatric: normal affect, A&O x 3 Skin: no rash Dx/Plan (1) NSTEMI (non-ST elevated myocardial infarction) Code(s): I21.4 - NON-ST ELEVATION (NSTEMI) MYOCARDIAL INFARCTION Status: Acute Comment: demand ischemia from sepsis (2) Sepsis Code(s): A41.9 - SEPSIS, UNSPECIFIED ORGANISM Status: Acute Comment: Enterococcal bacteremia and UTI (3) Hematuria Code(s): R31.9 - HEMATURIA, UNSPECIFIED Status: Acute Comment: resolved (4) Enterococcal bacteremia Code(s): R78.81 - BACTEREMIA; B95.2 - ENTEROCOCCUS THE CAUSE OF DISEASES CLASSIFIED ELSEWHERE Status: Acute Comment: 2/2 Blood Cx (5) DM2 (diabetes mellitus, type 2) Status: Chronic Comment: Stop metformin given CRYSTAL/CKD (6) HTN (hypertension) Code(s): I10 - ESSENTIAL (PRIMARY) HYPERTENSION Status: Chronic (7) CKD (chronic kidney disease) stage 3, GFR 30-59 ml/min Code(s): N18.3 - CHRONIC KIDNEY DISEASE, STAGE 3 (MODERATE) Status: Chronic (8) Aortic stenosis Code(s): I35.0 - NONRHEUMATIC AORTIC (VALVE) STENOSIS Status: Chronic Qualifiers: Cardiac valve disease etiology: nonrheumatic Qualified Code(s): I35.0 - Nonrheumatic aortic (valve) stenosis Comment: moderate to severe (9) Pacemaker Code(s): Z95.0 - PRESENCE OF CARDIAC PACEMAKER Status: Chronic Comment: (10) CAD (coronary artery disease) Code(s): I25.10 - ATHSCL HEART DISEASE OF [place] CORONARY ARTERY W/O ANG PCTRS Status: Chronic (11) H/O prostate cancer Code(s): Z85.46 - PERSONAL HISTORY OF MALIGNANT NEOPLASM OF PROSTATE Status: Chronic (12) Chronic diastolic CHF (congestive heart failure), NYHA class 3 Code(s): I50.32 - CHRONIC DIASTOLIC (CONGESTIVE) HEART FAILURE Status: Chronic Comment: Compensated. ECHO 09/05/18 - Plan continue antibiotics, PT/OT, incentive spirometry, out of bed/ambulate, DVT proph w/SCDs clinically better and stable. DC planning -: add coreg given high BP and mild Diastolic CHF -: is moderate and does not need Sx for now -: Avina removed. monitor.on ABx for UTI -: am labs.DC metfromin and add glyburide.DC IVF * . Review of Systems - Review of Systems Constitutional: weakness, malaise. negative: fever, chills, sweats, other ENT: negative: Ear Pain, Ear Discharge, Nose Pain, Nose Discharge, Nose Congestion, Mouth Pain, Mouth Swelling, Throat Pain, Throat Swelling, Other Respiratory: negative: Cough, Dry, Shortness of Breath, Hemoptysis, SOB with Excertion, Pleuritic Pain, Sputum, Wheezing Cardiovascular: negative: chest pain, palpitations, orthopnea, paroxysmal nocturnal dyspnea, edema, light headedness, other Gastrointestinal: negative: Nausea, Vomiting, Abdominal Pain, Diarrhea, Constipation, Melena, Hematochezia, Other Genitourinary: negative: Dysuria, Frequency, Incontinence, Hematuria, Retention , Other Neurological: negative: Weakness, Numbness, Incoordination, Change in Speech, Confusion, Seizures, Other - Medications/Allergies Allergies/Adverse Reactions: Allergies Allergy/AdvReac Type Severity Reaction Status Date / Time Penicillins Allergy Verified 09/03/18 22:05 Medications: Current Medications Acetaminophen (Tylenol) 650 mg PO Q4H PRN PRN Reason: Headache/Fever/Mild Pain (1-3) Last Admin: 09/04/18 16:23 Dose: 650 mg Atorvastatin Calcium (Lipitor) 40 mg PO [facility] Last Admin: 09/05/18 21:42 Dose: 40 mg Carvedilol (Coreg) 6.25 mg PO BID-[facility] Last Admin: 09/06/18 09:06 Dose: 6.25 mg Dextrose/Water (Dextrose 50%) 25 gm SLOW IVP PRN PRN PRN Reason: Hypoglycemia Glucagon (Glucagon) 1 mg IM PRN PRN PRN Reason: Hypoglycemia Glyburide (Micronase) 2.5 mg PO QAM-[facility] Last Admin: 09/06/18 09:06 Dose: 2.5 mg Dextrose/Water (D5w) 1,000 mls @ 0 mls/hr IV .Q0M PRN PRN Reason: Hypoglycemia Vancomycin HCl 1.25 gm/ Sodium (Chloride) 250 mls @ 166.67 mls/hr IVPB Q24H [facility] Last Admin: 09/05/18 18:50 Dose: 250 mls Insulin Human Lispro (Humalog) 0 units SC .MILD SLIDING SCALE PRN PRN Reason: Mild Correctional Scale Last Admin: 09/06/18 11:50 Dose: 3 unit Magnesium Oxide (Magnesium Oxide) 800 mg PO BID [facility] Last Admin: 09/06/18 08:48 Dose: 800 mg Memantine (Namenda) 10 mg PO BID [facility] Last Admin: 09/06/18 08:48 Dose: 10 mg Miscellaneous Medication (Pharmacy To Dose) 0 each IVPB PRN PRN PRN Reason: Pharmacy to dose Ondansetron HCl (Zofran Odt) 4 mg PO Q6H PRN PRN Reason: Nausea/Vomiting Ondansetron HCl (Zofran) 4 mg IVP Q6H PRN PRN Reason: Nausea/Vomiting Prednisone (Prednisone) 5 mg PO DAILY [facility] Last Admin: 09/06/18 08:48 Dose: 5 mg Sodium Chloride (Flush - Normal Saline) 10 ml IVF Q12HR [facility] Last Admin: 09/06/18 08:49 Dose: 10 ml Sodium Chloride (Flush - Normal Saline) 10 ml IVF PRN PRN PRN Reason: Saline Flush Last Admin: 09/06/18 01:57 Dose: 10 ml
--- NOTE | 2018-09-06 14:57 | PQF ---
DATE: 09-06-18 ATTN: DR. DINO MARTINEZ Please exercise your independent, professional judgment in responding to the clarification form. Clinical indicators are provided on the bottom of this form for your review Please check appropriate box(s): [ ] NSTEMI [ ] AMI Type II [ ] Other [X ] Other diagnosis demand ischemia [ ] Unable to determine In addition, please specify: Present on Admission (POA): [ X ] Yes [ ] No [ ] Unable to determine CLINICAL INDICATORS - SIGNS / SYMPTOMS / LABS TROPONIN: 09-03-18: 0.061 0.752 1.668 09-05-18: 1.127 ER DX: SEPSIS, UTI H&P: NON-ST ELEVATION NM PN DR. MARTINEZ 09-04-18: ACUTE NSTEMI CONSULT DR. MO 09-04-18: HIS INCREASED TROP IS MOST LIKELY REPRESENT DEMAND ISCHEMIA FROM HIS UROSEPSIS AND RENAL INSUFF. CONSULT DR. MARTINEZ 09-06-18: ACUTE NSTEMI DEMAND ISCHEMIA FROM SEPSIS RISKS: ER: FALL FROM STANDING, DIARRHEA, CONFUSION, HX CKD, CAD, HTN, DM 2, PACEMAKER, FORMER SMOKER TREATMENTS: CARDIOLOGY CONSULT 09-05-17 TROP SERIES/LABS (This form is maintained as a part of the permanent medical record) 2014 [employer]. All Rights Reserved ELYSE [email or web address] Office: [phone] [facility]
--- NOTE | 2018-09-06 15:46 | PRG ---
DATE OF SERVICE: 09/06/2018 SUBJECTIVE: Mr. De Guzman is feeling better. He denies headaches. No visual symptoms, sore throat, odynophagia, or dysphagia. No cough or sputum production. No chest pain. No abdominal pain or diarrhea. He is voiding without problems after the Avina catheter was removed. He has no back pain. OBJECTIVE: VITAL SIGNS: His T-max was 99.7 yesterday at 11 p.m. He has been afebrile since. BP 120/73, pulse 95, respirations 18, O2 saturation 90% to 93%. HEENT: Ocular movements conjugate. Oral cavity moist. LUNGS: Symmetric air entry. Few crackles in the left base. HEART: S1 and S2. Regular rate. ABDOMEN: Soft, not distended or tender. No suprapubic distention. EXTREMITIES: No joint inflammatory activity. LABORATORY DATA: White cell count 9.6, hemoglobin 11, platelets 116, which is higher than the yesterday, 68% neutrophils. Chemistry with a sodium 139, creatinine 1.63, which is a little higher than previously. Microbiology with Enterococcus faecalis from 2 sets of blood cultures and urine culture as well, the organism susceptible to ampicillin as well as levofloxacin. ASSESSMENT AND DISCUSSION: Prostate cancer in remission, type 2 diabetes, sick sinus syndrome with pacemaker, syncopal event with Enterococcus faecalis bacteremia including a positive urine cultures, most likely secondary to urinary tract infection, probably pyelonephritis. We will transition him to levofloxacin for discharge planning. I was going to order allergy testing, but that is not going to be feasible. I do not think there are no allergists anymore to come to the hospital to provide that service. Down the road, I would advise him to try to get an allergy testing for penicillin in the outpatient setting. He did have angioedema which is very well remembered by family member, so I do not think it is safe to just do a challenge at this point in time. Treat for another 10-14 days in the outpatient setting and make sure has proper postvoid residuals. Job ID: [id number]
--- NOTE | 2018-09-06 16:13 | PRG ---
DATE OF SERVICE: 09/06/2018 SUBJECTIVE: The patient is afebrile. His vital signs looked to be stable. His Avina catheter was removed this morning and he has urinated three times without any difficulties, the first couple had a little pink tinge noted, but that was all. He feels like it is coming out adequately and feels like he is emptying okay. His CBC today was normal. His creatinine was 1.63, which appears probably stable for him. He is on currently Levaquin. The blood culture and urine culture report again showed enterococcus that was sensitive to Levaquin. He has seen Dr. Oden and I will let Dr. Oden decide on the length of antibiotic course. He seems to be voiding without much difficulty at this time, and I do not think he will need a Avina replaced. Dr. Mariano is covering this weekend. Should a urologic consult be required, please just contact her. Job ID: [id number]
[2018-09-06] MEDS: Atorvastatin Calcium 40 MG TAB PO SCH (22:05)
[2018-09-07 05:40] LABS: #Basophils 0.1 thou/uL (0.0-0.2); #Eosinphils 0.7 thou/uL (0.0-0.7); #Lymphocytes 1.6 thou/uL (1.20-3.40); #Monocytes 0.8 thou/uL (0.11-0.59); #Neutrophils 4.8 thou/uL (1.40-6.50); %Basophils 0.8 % (0.0-1.0); %Lymphocytes 20.1 % (21.0-51.0); %Monocytes 9.7 % (0.0-10.0); %Neutrophils 60.4 % (42.0-75.0); Hemoglobin 11.1 g/dL (14.0-18.0); Mean Corpuscular HGB CONC 32.7 g/dL (32.0-36.0); Mean Corpuscular Hemoglobin 32.7 pg (27.0-31.0); Mean Platelet Volume 7.6 fL (7.4-10.4); Platelet Count 128 thou/uL (130-400); RBC Distribution Width 12.5 % (11.5-14.5)
[2018-09-07 06:12] LABS: Anion Gap 14 mmol/L (10-20); BUN (Urea Nitrogen) 41 mg/dL (8.4-25.7); Calc. Creatinine Clearance 35 mL/min (70-130); Calcium 8.8 mg/dL (7.8-10.44); Carbon Dioxide 24 mmol/L (23-31); Chloride 103 mmol/L (98-107); Estimated GFR-MDRD 45; Glucose 97 mg/dL (83-110); Potassium 4.2 mmol/L (3.5-5.1); Sodium 137 mmol/L (136-145)
[2018-09-07] MEDS: Magnesium Oxide 400 MG TAB PO SCH ×2 (08:26→21:56)
[2018-09-07] MEDS: glyBURIDE 2.5 MG TAB PO SCH (08:26)
[2018-09-07] MEDS: predniSONE 5 MG TAB PO SCH (08:27)
[2018-09-07] MEDS: Carvedilol 6.25 MG TAB PO SCH ×2 (08:27→17:47)
[2018-09-07] MEDS ORDERED: Furosemide 20 MG TAB PO SCH ×2 (12:00)
--- NOTE | 2018-09-07 12:30 | RAD ---
PORTABLE AP CHEST: Date: 09/07/18 HISTORY: Shortness of breath. COMPARISON: 09/03/18. FINDINGS: Dual lead left subclavian cardiac pacemaking device remains in place. Medial aspect of each lung apex is excluded from view due to patient's overlying mandible and jaw. Cardiac silhouette is magnified b y projection, but does appear enlarged. There is mild pulmonary vascular congestion present. There is persistent elevation of the right hemidiaphragm. No other interval change. IMPRESSION: 1. Findings suggesting mild CHF. 2. Mild elevation right hemidiaphragm. POS: [facility]
--- NOTE | 2018-09-07 14:04 | PDOC.PN ---
- Subjective Encounter Start Date: 09/07/18 Encounter Start Time: 14:02 Subjective: feels bad.c/o loose stools last night -: c/o SOB .no chest pain - Objective Resuscitation Status - Order Detail: 09/05/18 13:28 Resuscitation Status Routine Resuscitation Status: FULL: Full Resuscitation Discussed with: discussed w pt. see ACP note MAR Reviewed: Yes Vital Signs & Weight: Vital Signs (12 hours) Temp Pulse Resp BP Pulse Ox 09/07/18 11:30 97.8 F 78 16 127/67 94 L 09/07/18 07:33 98.7 F 79 16 148/70 H 92 L 09/07/18 04:00 97.3 F L 76 21 H 148/80 H 94 L Weight Weight 150 lb 6.4 oz I&O: 09/06/18 09/07/18 09/08/18 06:59 06:59 06:59 Intake Total 1858 1634 Output Total 3075 100 Balance -1217 1534 Result Diagrams: 09/07/18 04:51 09/07/18 04:51 Additional Labs: Accuchecks 09/07/18 09/07/18 09/06/18 11:00 05:35 20:21 POC Glucose 154 H 114 H 221 H 09/06/18 16:54 POC Glucose 213 H Radiology Reviewed by me: Yes (CXR-pulmonary congestion) Phys Exam - Physical Examination Constitutional: NAD HEENT: PERRLA, moist MMs, sclera anicteric, oral pharynx no lesions Neck: no nodes, no JVD, supple, full ROM Respiratory: no wheezing, no rales, no rhonchi, clear to auscultation bilateral Cardiovascular: RRR, no significant murmur Gastrointestinal: soft, non-tender, no distention, positive bowel sounds Musculoskeletal: no edema, pulses present Neurological: non-focal, normal sensation, moves all 4 limbs Psychiatric: normal affect, A&O x 3 Skin: no rash Dx/Plan (1) NSTEMI (non-ST elevated myocardial infarction) Code(s): I21.4 - NON-ST ELEVATION (NSTEMI) MYOCARDIAL INFARCTION Status: Acute Comment: demand ischemia from sepsis (2) Sepsis Code(s): A41.9 - SEPSIS, UNSPECIFIED ORGANISM Status: Acute Comment: Enterococcal bacteremia and UTI (3) Hematuria Code(s): R31.9 - HEMATURIA, UNSPECIFIED Status: Acute Comment: resolved (4) Enterococcal bacteremia Code(s): R78.81 - BACTEREMIA; B95.2 - ENTEROCOCCUS THE CAUSE OF DISEASES CLASSIFIED ELSEWHERE Status: Acute Comment: 2/2 Blood Cx (5) DM2 (diabetes mellitus, type 2) Status: Chronic Comment: Stop metformin given CRYSTAL/CKD (6) HTN (hypertension) Code(s): I10 - ESSENTIAL (PRIMARY) HYPERTENSION Status: Chronic (7) CKD (chronic kidney disease) stage 3, GFR 30-59 ml/min Code(s): N18.3 - CHRONIC KIDNEY DISEASE, STAGE 3 (MODERATE) Status: Chronic (8) Aortic stenosis Code(s): I35.0 - NONRHEUMATIC AORTIC (VALVE) STENOSIS Status: Chronic Qualifiers: Cardiac valve disease etiology: nonrheumatic Qualified Code(s): I35.0 - Nonrheumatic aortic (valve) stenosis Comment: moderate to severe (9) Pacemaker Code(s): Z95.0 - PRESENCE OF CARDIAC PACEMAKER Status: Chronic Comment: (10) CAD (coronary artery disease) Code(s): I25.10 - ATHSCL HEART DISEASE OF [place] CORONARY ARTERY W/O ANG PCTRS Status: Chronic (11) H/O prostate cancer Code(s): Z85.46 - PERSONAL HISTORY OF MALIGNANT NEOPLASM OF PROSTATE Status: Chronic (12) Chronic diastolic CHF (congestive heart failure), NYHA class 3 Code(s): I50.32 - CHRONIC DIASTOLIC (CONGESTIVE) HEART FAILURE Status: Chronic Comment: Compensated. ECHO 09/05/18 - Plan continue antibiotics, PT/OT, out of bed/ambulate, DVT proph w/SCDs check C.diff.on Abx. -: restart lasix as mild pulm vascular congestion -: cont Levaquin for now for UTI/Bacteremia.appreciate ID recs -: no more hematuria.H/H stable.holding ASA -: BP better w Coreg.Monitor. am labs * . Review of Systems - Review of Systems Constitutional: weakness, malaise. negative: fever, chills, sweats, other ENT: negative: Ear Pain, Ear Discharge, Nose Pain, Nose Discharge, Nose Congestion, Mouth Pain, Mouth Swelling, Throat Pain, Throat Swelling, Other Respiratory: SOB with Excertion. negative: Cough, Dry, Shortness of Breath, Hemoptysis, Pleuritic Pain, Sputum, Wheezing Cardiovascular: negative: chest pain, palpitations, orthopnea, paroxysmal nocturnal dyspnea, edema, light headedness, other Gastrointestinal: Diarrhea. negative: Nausea, Vomiting, Abdominal Pain, Constipation, Melena, Hematochezia, Other Genitourinary: negative: Dysuria, Frequency, Incontinence, Hematuria, Retention , Other Neurological: negative: Weakness, Numbness, Incoordination, Change in Speech, Confusion, Seizures, Other - Medications/Allergies Allergies/Adverse Reactions: Allergies Allergy/AdvReac Type Severity Reaction Status Date / Time Penicillins Allergy Verified 09/03/18 22:05 Medications: Current Medications Acetaminophen (Tylenol) 650 mg PO Q4H PRN PRN Reason: Headache/Fever/Mild Pain (1-3) Last Admin: 09/04/18 16:23 Dose: 650 mg Atorvastatin Calcium (Lipitor) 40 mg PO HS [facility] Last Admin: 09/06/18 22:05 Dose: 40 mg Carvedilol (Coreg) 6.25 mg PO BID-[facility] Last Admin: 09/07/18 08:27 Dose: 6.25 mg Dextrose/Water (Dextrose 50%) 25 gm SLOW IVP PRN PRN PRN Reason: Hypoglycemia Furosemide (Lasix) 20 mg PO Q2D [facility] Last Admin: 09/07/18 12:40 Dose: 20 mg Glucagon (Glucagon) 1 mg IM PRN PRN PRN Reason: Hypoglycemia Glyburide (Micronase) 2.5 mg PO QAM-[facility] Last Admin: 09/07/18 08:26 Dose: 2.5 mg Dextrose/Water (D5w) 1,000 mls @ 0 mls/hr IV .Q0M PRN PRN Reason: Hypoglycemia Insulin Human Lispro (Humalog) 0 units SC .MILD SLIDING SCALE PRN PRN Reason: Mild Correctional Scale Last Admin: 09/06/18 17:55 Dose: 3 unit Levofloxacin (Levaquin) 250 mg PO 0600 [facility] Last Admin: 09/07/18 06:01 Dose: 250 mg Magnesium Oxide (Magnesium Oxide) 800 mg PO BID [facility] Last Admin: 09/07/18 08:26 Dose: 800 mg Memantine (Namenda) 10 mg PO BID [facility] Last Admin: 09/07/18 08:26 Dose: 10 mg Miscellaneous Medication (Pharmacy To Dose) 0 each IVPB PRN PRN PRN Reason: Pharmacy to dose Ondansetron HCl (Zofran Odt) 4 mg PO Q6H PRN PRN Reason: Nausea/Vomiting Ondansetron HCl (Zofran) 4 mg IVP Q6H PRN PRN Reason: Nausea/Vomiting Prednisone (Prednisone) 5 mg PO DAILY [facility] Last Admin: 09/07/18 08:27 Dose: 5 mg Sodium Chloride (Flush - Normal Saline) 10 ml IVF Q12HR [facility] Last Admin: 09/07/18 08:27 Dose: 10 ml Sodium Chloride (Flush - Normal Saline) 10 ml IVF PRN PRN PRN Reason: Saline Flush Last Admin: 09/06/18 01:57 Dose: 10 ml
[2018-09-07] MEDS: Vancomycin HCl 25 MG/ML Oral PO SCH ×2 (17:47→21:56)
[2018-09-07] MEDS: Atorvastatin Calcium 40 MG TAB PO SCH (21:56)
[2018-09-08 06:33] LABS: #Eosinphils 0.6 thou/uL (0.0-0.7); #Lymphocytes 1.5 thou/uL (1.20-3.40); #Monocytes 0.6 thou/uL (0.11-0.59); #Neutrophils 4.4 thou/uL (1.40-6.50); %Basophils 0.5 % (0.0-1.0); %Lymphocytes 20.4 % (21.0-51.0); %Neutrophils 61.1 % (42.0-75.0); Hemoglobin 11.5 g/dL (14.0-18.0); Mean Corpuscular HGB CONC 32.6 g/dL (32.0-36.0); Mean Corpuscular Hemoglobin 32.4 pg (27.0-31.0); Mean Corpuscular Volume 99.3 fL (78.0-98.0); Mean Platelet Volume 7.2 fL (7.4-10.4); Platelet Count 151 thou/uL (130-400); RBC Distribution Width 12.6 % (11.5-14.5); Red Blood Cell (RBC) Count 3.55 mill/uL (4.70-6.10); White Blood Cell (WBC) Count 7.1 thou/uL (4.8-10.8)
[2018-09-08 06:59] LABS: Anion Gap 10 mmol/L (10-20); BUN (Urea Nitrogen) 40 mg/dL (8.4-25.7); Calc. Creatinine Clearance 33 mL/min (70-130); Calcium 9.1 mg/dL (7.8-10.44); Carbon Dioxide 31 mmol/L (23-31); Chloride 104 mmol/L (98-107); Estimated GFR-MDRD 43; Glucose 108 mg/dL (83-110); Potassium 3.8 mmol/L (3.5-5.1); Sodium 141 mmol/L (136-145)
[2018-09-08] MEDS: Carvedilol 6.25 MG TAB PO SCH ×2 (08:43→16:25)
[2018-09-08] MEDS: Vancomycin HCl 25 MG/ML Oral PO SCH ×4 (08:43→20:48)
[2018-09-08] MEDS: predniSONE 5 MG TAB PO SCH (08:43)
[2018-09-08] MEDS: Magnesium Oxide 400 MG TAB PO SCH ×2 (08:43→20:48)
[2018-09-08] MEDS: glyBURIDE 2.5 MG TAB PO SCH (08:43)
--- NOTE | 2018-09-08 12:32 | PDOC.PN ---
- Subjective Encounter Start Date: 09/08/18 Encounter Start Time: 12:30 Subjective: feels better today. no more loose stools -: no breathing issues. - Objective Resuscitation Status - Order Detail: 09/05/18 13:28 Resuscitation Status Routine Resuscitation Status: FULL: Full Resuscitation Discussed with: discussed w pt. see ACP note MAR Reviewed: Yes Vital Signs & Weight: Vital Signs (12 hours) Temp Pulse Resp BP Pulse Ox 09/08/18 12:20 97.4 F L 73 16 134/64 93 L 09/08/18 07:30 93 L 09/08/18 07:27 97 F L 76 16 145/81 H 93 L 09/08/18 04:56 97.3 F L 72 18 143/75 H 93 L Weight Weight 150 lb 6.4 oz I&O: 09/07/18 09/08/18 09/09/18 06:59 06:59 06:59 Intake Total 1634 1170 Output Total 100 300 Balance 1534 870 Result Diagrams: 09/08/18 06:19 09/08/18 06:19 Additional Labs: Accuchecks 09/08/18 09/07/18 09/07/18 11:25 21:03 16:54 POC Glucose 168 H 198 H 238 H Microbiology 09/07/18 Unknown Stool C. difficile GDH Antigen & Toxins - Final 09/07/18 Unknown Stool Clostridium difficile Toxin A&B PCR - Final 09/03/18 17:15 Nasal swab Influenza Types A,B Direct EIA - Final 09/03/18 15:04 Venous blood - Left Hand Blood Culture - Final Enterococcus faecalis 09/03/18 14:53 Urine Straight Catheter Urine Culture - Final Enterococcus faecalis 09/03/18 13:34 Venous blood - Right Arm Blood Culture - Final Enterococcus faecalis 09/03/18 16:37 Spinal Fluid Culture - Pending Body Fluid Culture - Preliminary Laboratory Tests 09/03/18 09/04/18 09/04/18 13:30 04:08 04:08 Plt Count 130 116 L Neutrophils % 83.0 H 78.6 H Creatinine 1.65 H 09/05/18 09/05/18 09/06/18 05:49 05:50 05:36 Plt Count 110 L Neutrophils % 71.7 Creatinine 1.48 H 1.63 H 09/06/18 09/07/18 09/07/18 05:36 04:51 04:51 Plt Count 116 L 128 L Neutrophils % 68.0 60.4 Creatinine 1.49 H 09/08/18 09/08/18 06:19 06:19 Plt Count 151 Neutrophils % 61.1 Creatinine 1.56 H Phys Exam - Physical Examination Constitutional: NAD HEENT: PERRLA, moist MMs, sclera anicteric, oral pharynx no lesions Neck: no nodes, no JVD, supple, full ROM Respiratory: no wheezing, no rales, no rhonchi, clear to auscultation bilateral Cardiovascular: RRR, no significant murmur Gastrointestinal: soft, non-tender, no distention, positive bowel sounds Musculoskeletal: no edema, pulses present Neurological: non-focal, normal sensation, moves all 4 limbs Psychiatric: normal affect, A&O x 3 Dx/Plan (1) C. difficile diarrhea Code(s): A04.72 - ENTEROCOLITIS D/T CLOSTRIDIUM DIFFICILE, NOT SPCF RECUR Status: Acute Comment: started on PO vanco (2) NSTEMI (non-ST elevated myocardial infarction) Code(s): I21.4 - NON-ST ELEVATION (NSTEMI) MYOCARDIAL INFARCTION Status: Acute Comment: demand ischemia from sepsis (3) Sepsis Code(s): A41.9 - SEPSIS, UNSPECIFIED ORGANISM Status: Acute Comment: Enterococcal bacteremia and UTI.s/p IV Abx. on PO levaquin per ID recs (4) Hematuria Code(s): R31.9 - HEMATURIA, UNSPECIFIED Status: Acute Comment: resolved (5) Enterococcal bacteremia Code(s): R78.81 - BACTEREMIA; B95.2 - ENTEROCOCCUS THE CAUSE OF DISEASES CLASSIFIED ELSEWHERE Status: Acute Comment: 2/2 Blood Cx (6) DM2 (diabetes mellitus, type 2) Status: Chronic Comment: Stop metformin given CRYSTAL/CKD (7) HTN (hypertension) Code(s): I10 - ESSENTIAL (PRIMARY) HYPERTENSION Status: Chronic (8) CKD (chronic kidney disease) stage 3, GFR 30-59 ml/min Code(s): N18.3 - CHRONIC KIDNEY DISEASE, STAGE 3 (MODERATE) Status: Chronic (9) Aortic stenosis Code(s): I35.0 - NONRHEUMATIC AORTIC (VALVE) STENOSIS Status: Chronic Qualifiers: Cardiac valve disease etiology: nonrheumatic Qualified Code(s): I35.0 - Nonrheumatic aortic (valve) stenosis Comment: moderate to severe (10) Pacemaker Code(s): Z95.0 - PRESENCE OF CARDIAC PACEMAKER Status: Chronic Comment: (11) CAD (coronary artery disease) Code(s): I25.10 - ATHSCL HEART DISEASE OF [place] CORONARY ARTERY W/O ANG PCTRS Status: Chronic (12) H/O prostate cancer Code(s): Z85.46 - PERSONAL HISTORY OF MALIGNANT NEOPLASM OF PROSTATE Status: Chronic (13) Chronic diastolic CHF (congestive heart failure), NYHA class 3 Code(s): I50.32 - CHRONIC DIASTOLIC (CONGESTIVE) HEART FAILURE Status: Chronic Comment: Compensated. ECHO 09/05/18 - Plan continue antibiotics, PT/OT, respiratory therapy, incentive spirometry, out of bed/ambulate, DVT proph w/SCDs cont ABx.clinically better. -: renal Fx stable. Stop lasix as pt does not take at home.ECHO w good EF -: lucas ORTIZ to rehab tomorrow if remains stable -: am labs * . Review of Systems - Review of Systems Constitutional: weakness, malaise. negative: fever, chills, sweats, other Respiratory: negative: Cough, Dry, Shortness of Breath, Hemoptysis, SOB with Excertion, Pleuritic Pain, Sputum, Wheezing Cardiovascular: negative: chest pain, palpitations, orthopnea, paroxysmal nocturnal dyspnea, edema, light headedness, other Gastrointestinal: negative: Nausea, Vomiting, Abdominal Pain, Diarrhea, Constipation, Melena, Hematochezia, Other Genitourinary: negative: Dysuria, Frequency, Incontinence, Hematuria, Retention , Other Musculoskeletal: negative: Neck Pain, Shoulder Pain, Arm Pain, Back Pain, Hand Pain, Leg Pain, Foot Pain, Other - Medications/Allergies Allergies/Adverse Reactions: Allergies Allergy/AdvReac Type Severity Reaction Status Date / Time Penicillins Allergy Verified 09/03/18 22:05 Medications: Current Medications Acetaminophen (Tylenol) 650 mg PO Q4H PRN PRN Reason: Headache/Fever/Mild Pain (1-3) Last Admin: 09/04/18 16:23 Dose: 650 mg Atorvastatin Calcium (Lipitor) 40 mg PO HS OTILIA Last Admin: 09/07/18 21:56 Dose: 40 mg Carvedilol (Coreg) 6.25 mg PO BID-[facility] Last Admin: 09/08/18 08:43 Dose: 6.25 mg Dextrose/Water (Dextrose 50%) 25 gm SLOW IVP PRN PRN PRN Reason: Hypoglycemia Furosemide (Lasix) 20 mg PO Q2D [facility] Last Admin: 09/07/18 12:40 Dose: 20 mg Glucagon (Glucagon) 1 mg IM PRN PRN PRN Reason: Hypoglycemia Glyburide (Micronase) 2.5 mg PO QAM-[facility] Last Admin: 09/08/18 08:43 Dose: 2.5 mg Dextrose/Water (D5w) 1,000 mls @ 0 mls/hr IV .Q0M PRN PRN Reason: Hypoglycemia Insulin Human Lispro (Humalog) 0 units SC .MILD SLIDING SCALE PRN PRN Reason: Mild Correctional Scale Last Admin: 09/06/18 17:55 Dose: 3 unit Levofloxacin (Levaquin) 250 mg PO 0600 [facility] Last Admin: 09/08/18 05:52 Dose: 250 mg Magnesium Oxide (Magnesium Oxide) 800 mg PO BID [facility] Last Admin: 09/08/18 08:43 Dose: 800 mg Memantine (Namenda) 10 mg PO BID [facility] Last Admin: 09/08/18 08:43 Dose: 10 mg Ondansetron HCl (Zofran Odt) 4 mg PO Q6H PRN PRN Reason: Nausea/Vomiting Ondansetron HCl (Zofran) 4 mg IVP Q6H PRN PRN Reason: Nausea/Vomiting Prednisone (Prednisone) 5 mg PO DAILY [facility] Last Admin: 09/08/18 08:43 Dose: 5 mg Sodium Chloride (Flush - Normal Saline) 10 ml IVF Q12HR [facility] Last Admin: 09/08/18 08:44 Dose: 10 ml Sodium Chloride (Flush - Normal Saline) 10 ml IVF PRN PRN PRN Reason: Saline Flush Last Admin: 09/06/18 01:57 Dose: 10 ml Vancomycin HCl (First Vancomycin) 125 mg PO QID [facility] Last Admin: 09/08/18 12:21 Dose: 125 mg
--- NOTE | 2018-09-08 17:10 | PRG ---
DATE OF SERVICE: 09/08/2018 SUBJECTIVE: Mr. De Guzman seen by the bedside. There is no more diarrhea. No respiratory symptoms or abdominal pain. OBJECTIVE: VITAL SIGNS: He has been afebrile. LUNGS: Clear. HEART: S1, S2. Regular rate. ABDOMEN: Soft, not distended or tender. Bowel sounds are diminished. LABORATORY DATA: White cell count 7.1, hemoglobin 11, platelets 151, 61% neutrophils. Sodium 141, creatinine 1.56. C difficile toxin and antigen positive. ASSESSMENT AND DISCUSSION: Prostate cancer in remission, type 2 diabetes, sick sinus syndrome with pacemaker and Enterococcus faecalis bacteremia likely due to urinary infection with pyelonephritis. The patient currently on levofloxacin to be continued for another 10 to 14 days. The patient developed now clostridium difficile colitis, which will be a complicating factor and will need to continue on oral vancomycin to complete a treatment course of two weeks. After that, I would advise tapering the vancomycin following discontinuation of levofloxacin. This to decrease the risk of recrudescence of clostridium difficile colitis. Job ID: [id number]
[2018-09-08] MEDS: Atorvastatin Calcium 40 MG TAB PO SCH (20:48)
[2018-09-09 05:08] LABS: #Basophils 0.1 thou/uL (0.0-0.2); #Eosinphils 0.7 thou/uL (0.0-0.7); #Lymphocytes 1.7 thou/uL (1.20-3.40); #Monocytes 0.7 thou/uL (0.11-0.59); #Neutrophils 5.1 thou/uL (1.40-6.50); %Basophils 0.8 % (0.0-1.0); %Eosinophils 8.9 % (0.0-10.0); %Monocytes 8.7 % (0.0-10.0); %Neutrophils 61.6 % (42.0-75.0); Hemoglobin 11.7 g/dL (14.0-18.0); Mean Corpuscular HGB CONC 33.6 g/dL (32.0-36.0); Mean Corpuscular Volume 98.3 fL (78.0-98.0); Mean Platelet Volume 6.6 fL (7.4-10.4); Platelet Count 160 thou/uL (130-400); RBC Distribution Width 12.5 % (11.5-14.5); Red Blood Cell (RBC) Count 3.55 mill/uL (4.70-6.10); White Blood Cell (WBC) Count 8.3 thou/uL (4.8-10.8)
[2018-09-09 05:26] LABS: Anion Gap 12 mmol/L (10-20); BUN (Urea Nitrogen) 39 mg/dL (8.4-25.7); Calc. Creatinine Clearance 32 mL/min (70-130); Calcium 9.1 mg/dL (7.8-10.44); Carbon Dioxide 28 mmol/L (23-31); Chloride 106 mmol/L (98-107); Estimated GFR-MDRD 40; Glucose 110 mg/dL (83-110); Potassium 4.2 mmol/L (3.5-5.1); Sodium 142 mmol/L (136-145)
[2018-09-09] MEDS: Magnesium Oxide 400 MG TAB PO SCH (08:06)
[2018-09-09] MEDS: Vancomycin HCl 25 MG/ML Oral PO SCH ×2 (08:06→12:13)
[2018-09-09] MEDS: glyBURIDE 2.5 MG TAB PO SCH (08:06)
[2018-09-09] MEDS: predniSONE 5 MG TAB PO SCH (08:07)
[2018-09-09] MEDS: Carvedilol 6.25 MG TAB PO SCH (08:07)
[2018-09-09 12:13] VITALS: BP 160/98; TEMP 97.2
--- NOTE | 2018-09-09 13:07 | DIS ---
DATE OF ADMISSION: 09/03/2018 DATE OF DISCHARGE: 09/09/2018 PRIMARY CARE PROVIDER: Pee Adames DO. DISPOSITION: Discharged to home. FINAL DIAGNOSES: Sepsis syndrome with enterococcal bacteremia from urinary tract infection, acute on chronic heart failure, [id number] myocardial infarction, aortic stenosis, chronic kidney disease stage 3, colitis with Clostridium difficile. DISCHARGE MEDICINES: 1. Coreg 6.25 mg twice a day. 2. Glyburide 2.5 mg a day. 3. Levofloxacin 250 mg, 14 days. 4. Vancomycin 125 mg q.i.d. 5. Lasix 20 mg every other day. 6. Prednisone 5 mg a day. 7. Lipitor 40 mg a day. 8. Aspirin 81 mg a day. ALLERGIES: PENICILLIN. PENDING AT TIME OF DISCHARGE: Nothing. CODE STATUS: DNAR. HOSPITAL COURSE: This patient admitted to the hospital to [facility], was brought to the emergency room after passing out, loss of consciousness. He was found to have elevated troponin of 0.06, next one was 1.6. Cardiology was consulted. The patient had a normal white count, but had a pyuria. Blood and urine cultures eventually revealed Enterococcus faecalis in 2/2 blood cultures and urine culture. Enterococcus was pansensitive except to tetracyclines. The patient's hemoglobin was stable at the 11 to 12 range throughout his hospital stay. Platelet count ranged from 116 to 160. His INR was normal. His initial lactic acid was 2.4, rapidly came down to normal. Initial BUN and creatinine were 36/1.85. He had mild elevations of his transaminases. He was treated with IV antibiotics, seen in consultation by Dr. Jace Shipman, Urology for some gross hematuria. He agreed with the treatment of the UTI. He was seen in consultation by Dr. Cresencio Oden for his bacteremia. Because of his fainting, carotid Doppler was done, showed no stenosis. Brain CT showed no evidence of intracranial abnormality. Echocardiogram was done, showed EF of 40% to 45% with diastolic dysfunction. Chest x-ray revealed pulmonary vascular congestion and left pleural effusion. Abdominal pelvis CT, no acute findings. There was a nonobstructing renal calculus. Followup chest x-ray done on 09/07, demonstrated resolution of pulmonary vascular congestion and almost complete resolution of the left pleural effusion, it maintained some cardiomegaly. At this time, he is doing well, desires discharge. He is being discharged with following medicines, which I have noted on the presented medicines. He has had no procedures done during his hospital stay. The presence of the renal stone may complicate further UTIs. He is given a much longer course of vancomycin than Levaquin to prevent recrudescence of C difficile. Follow up with Dr. Adames in one week. He will need continuing followup after that for possible recrudescence of the UTI and the C difficile. Job ID: [id number]
== END 2018-09-09 15:22 | disposition home health service (06) | DRG 871 ==
LOC: ERS 13:05 → ERHOLD 18:14 → 2NO 20:53
PROVIDERS: ADMIT Emergency Medicine; ATTEND Emergency Medicine
DX: A41.81 Sepsis due to Enterococcus (principal); I50.33 Acute on chronic diastolic (congestive) heart failure; I24.8 Other forms of acute ischemic heart disease; I13.0 Hypertensive heart and chronic kidney disease with heart failure and stage 1 through stage 4 chronic kidney disease, or unspecified chronic kidney disease; A04.72 Enterocolitis due to Clostridium difficile, not specified as recurrent; N13.6 Pyonephrosis; R55 Syncope and collapse; E11.65 Type 2 diabetes mellitus with hyperglycemia; I25.10 Atherosclerotic heart disease of native coronary artery without angina pectoris; E11.22 Type 2 diabetes mellitus with diabetic chronic kidney disease; N18.3 Chronic kidney disease, stage 3 (moderate); I35.0 Nonrheumatic aortic (valve) stenosis; R31.0 Gross hematuria; Z95.0 Presence of cardiac pacemaker; E78.00 Pure hypercholesterolemia, unspecified; F32.9 Major depressive disorder, single episode, unspecified; Z87.891 Personal history of nicotine dependence; Z85.46 Personal history of malignant neoplasm of prostate; Z92.3 Personal history of irradiation; Z79.84 Long term (current) use of oral hypoglycemic drugs; Z79.82 Long term (current) use of aspirin; Z79.52 Long term (current) use of systemic steroids; Z88.0 Allergy status to penicillin
CPT/HCPCS: 36415; 36416; 51702; 62270; 70450; 71045; 72125; 74178; 76705; 80048; 80053; 81003; 81015; 82553; 82945; 83605; 83880; 84157; 84484; 85025; 85610; 85730; 87040; 87070; 87077; 87086; 87149; 87186; 87205; 87324; 87449; 87493; 87804; 89051; 90471; 90670; 93005; 93306; 93880; 96361; 96365; 96367; 96375; G0009; J0696; J1885; J1940; J3370; J7050; J7512; Q9967

== ENCOUNTER 2018-09-30 22:29 | Inpatient (IN) | payer MEDICARE, OTHER ==
[2018-09-30 23:14] LABS: #Basophils 0.1 thou/uL (0.0-0.2); #Eosinphils 0.6 thou/uL (0.0-0.7); #Lymphocytes 1.3 thou/uL (1.20-3.40); #Monocytes 0.9 thou/uL (0.11-0.59); #Neutrophils 6.1 thou/uL (1.40-6.50); %Basophils 0.7 % (0.0-1.0); %Lymphocytes 14.9 % (21.0-51.0); %Monocytes 10.1 % (0.0-10.0); %Neutrophils 67.3 % (42.0-75.0); Hemoglobin 11.7 g/dL (14.0-18.0); Mean Corpuscular HGB CONC 32.1 g/dL (32.0-36.0); Mean Corpuscular Hemoglobin 31.1 pg (27.0-31.0); Mean Corpuscular Volume 96.9 fL (78.0-98.0); Mean Platelet Volume 7.6 fL (7.4-10.4); Platelet Count 116 thou/uL (130-400); Red Blood Cell (RBC) Count 3.76 mill/uL (4.70-6.10)
[2018-09-30 23:34] LABS: ALT (SGPT) 89 U/L (8-55); AST (SGOT) 89 U/L (5-34); Albumin 3.4 g/dL (3.4-4.8); Alkaline Phosphatase 336 U/L (40-150); Anion Gap 13 mmol/L (10-20); BUN (Urea Nitrogen) 46 mg/dL (8.4-25.7); Bilirubin, Total 0.6 mg/dL (0.2-1.2); CK (CPK) 27 U/L (30-200); Calc. Creatinine Clearance 0 mL/min (70-130); Calcium 9.1 mg/dL (7.8-10.44); Carbon Dioxide 28 mmol/L (23-31); Chloride 102 mmol/L (98-107); Estimated GFR-MDRD 37; Globulin 2.6 g/dL (2.4-3.5); Glucose 166 mg/dL (83-110); Lipase 38 U/L (8-78); Potassium 4.3 mmol/L (3.5-5.1); Sodium 139 mmol/L (136-145)
[2018-10-01 02:20] LABS: Bilirubin Negative (Negative); Blood, Urine Negative (Negative); Glucose, Urine (Dipstick) Negative (Negative); Leukocyte Negative (Negative); Nitrite Negative (Negative); Protein, Urine (Dipstick) 100 mg/dL (Neg-Trace); Urobilinogen 0.2 mg/dL (0.2-1.0)
[2018-10-01 02:21] LABS: Clarity Clear (Clear)
[2018-10-01 02:22] LABS: Bacteria/HPF None Seen HPF (None Seen); Hyaline Casts/LPF 0-3 HYALINE CAST LPF (0-3 Hyaline); Pathc Cast-AUWi Flag 0.13 (0-2.49); Squamous Epithelial 0-3 HPF (0-3); WBC/HPF 0-3 HPF (0-3)
[2018-10-01] MEDS ORDERED: Morphine 4 MG/ML VIAL ONE (02:57)
[2018-10-01] MEDS ORDERED: Acetaminophen 325 MG TAB PO PRN (08:48)
[2018-10-01] MEDS ORDERED: Ondansetron ODT 4 MG TAB PO PRN (08:48)
--- NOTE | 2018-10-01 08:57 | RAD ---
PORTABLE AP CHEST RADIOGRAPH: Date: 09-30-18 History: Dyspnea, chest pain. Comparison: 09-07-18, 09-16-17 FINDINGS: Dual-lead left subclavian cardiac pacemaking device remains in place. There is persistent elevation o f the right hemidiaphragm. There is increased interstitial densities in the perihilar regions bilater ally, greater on the left. These findings have not significantly changed from prior studies and may b e related to component of chronic interstitial lung disease. No consolidation or pleural fluid is see n. Pulmonary vasculature is within normal limits. Vascular calcifications are seen in the thoracic ao rta. No other interval change. IMPRESSION: Stable chest with increased interstitial densities bilaterally, not significantly changed or progress ed from prior study and may be related to mild chronic interstitial lung changes. POS: ANURADHA
[2018-10-01] MEDS ORDERED: Famotidine 20 MG TAB PO SCH (09:00)
[2018-10-01] MEDS ORDERED: Acetaminophen 325 MG TAB ONE (10:10)
[2018-10-01] MEDS: Heparin 5,000 UNITS/ML VIAL SC SCH ×3 (10:14→20:44)
[2018-10-01] MEDS ORDERED: Furosemide 40 MG/4 ML VIAL ONE (13:53)
[2018-10-01] MEDS ORDERED: Furosemide 40 MG/4 ML VIAL SLOW IVP SCH (14:00)
[2018-10-01] MEDS ORDERED: Nitroglycerin 0.4 MG TAB (25 Tab Bottle) SL PRN (14:27)
[2018-10-01 14:41] VITALS: BMI 21.9
[2018-10-01] MEDS ORDERED: Aspirin 325 MG TAB PO SCH ×2 (15:00→18:00)
--- NOTE | 2018-10-01 15:37 | HP ---
PRIMARY CARE PHYSICIAN: Pee Adames DO PRIMARY EDUCATIONAL PROGRAM ASSISTANT: Carlos Clarke MD PRIMARY CLOTH BALER: Naif Goodman MD REASON FOR ADMISSION: "I have difficulty breathing and laying down flat." HISTORY OF PRESENT ILLNESS: This is a very pleasant 83-year-old male gentleman, that I had a privilege in evaluating him in the emergency room, who comes in early today with complaints of shortness of breath and unable to lay flat in his bed with significant orthopnea. The patient was recently diagnosed with congestive heart failure with an ejection fraction of 45%. In the month of June 2018, the patient had a pacemaker placement done secondary to sick sinus syndrome. At that point of time, according to the patient's son, the patient had possibility of pacemaker infection, which was subsequently treated. The patient also in the recent past had a syncopal episode, for which he was evaluated with bilateral carotid Doppler and other diagnostics in August 2018. No significant possible causes were seen. The patient subsequently discharged home. Also during his hospital course in August 2018, the patient treated for C. diff diarrhea and currently still on oral Flagyl, but the patient does say that he has incontinent and has diarrhea at least 3 to 4 times a day. Today, the patient says he was doing fairly well until the last 24 hours, where he was feeling very sick, had significant chest pressure radiating to his neck without any associated nausea, vomiting, or diaphoresis. The patient also says he is currently living independently and unfortunately, he is not able to take care of himself and that the same concern expressed by the patient's son. No other complains of nausea, vomiting, diaphoresis, blurry of vision, tingling, numbness, burning micturition, constipation, claudication, anxiety, depression, hematuria, hematochezia, cough, expectoration, syncope, seizures, or paroxysmal nocturnal dyspnea have been noted. The patient does have significant orthopnea. PAST MEDICAL HISTORY: 1. Chronic kidney disease stage 3. 2. Coronary artery disease with recent history of NSTEMI. 3. History of sick sinus syndrome status post pacemaker placement in June 2018. 4. Diabetes mellitus type 2 on glyburide. 5. Benign essential hypertension. 6. Significant physical debility. 7. History of prostate cancer. PAST SURGICAL HISTORY: History of pacemaker placement in June 2018. Other past medical history includes osteoarthritis. FAMILY HISTORY: History of coronary artery disease and hypertension without any premature incidence. IMMUNIZATION HISTORY: Up-to-date. MEDICATIONS: At home; 1. Coreg 6.25 mg twice daily. 2. Glyburide 2.5 mg daily. 3. Levofloxacin 250 mg for 14 days. 4. Vancomycin 125 mg q.i.d. 5. Lasix 20 mg every other day. 6. Prednisone 5 mg daily for osteoarthritis. 7. Lipitor 40 mg daily. 8. Aspirin 81 mg daily. REVIEW OF SYSTEMS: Except as documented, all systems reviewed are negative. PHYSICAL EXAMINATION: GENERAL: This is a very pleasant 83-year-old male gentleman, complaining of orthopnea. VITAL SIGNS: Has a blood pressure of 156/68 mmHg, heart rate of 105 per minute, respiratory rate of 21 per minute, and has an airway, which is clear. HEENT: Atraumatic and normocephalic. NECK: Supple. No bruits. No lymphadenopathy. CVS: S1 and S2. No abnormal rhythms noted. CHEST: Bilateral air entry present. Basal rhonchi noted. ABDOMEN: Soft and nontender. Bowel sounds are present. No organomegaly. EXTREMITIES: No cyanosis. No edema. No clubbing. No icterus. NEUROLOGIC: The patient is alert and oriented x3. No focal motor or sensory deficits noted. HEME: No ecchymosis or petechiae. PSYCH: No depression. Normal mood. DIAGNOSTICS: WBCs 9.0, hemoglobin 11.7, hematocrit 36.4, and platelets are 116. Sodium 139, potassium 4.3, chloride 102, carbon dioxide 28, BUN 46, creatinine 1.76, AST 89, and ALT 89. Creatine kinase is 27, troponin are 0.018 and 0.017, and BNP is 344.7. Urinalysis has been reviewed. Chest x-ray has also been reviewed. ASSESSMENT: 1. Acute systolic congestive heart failure with exacerbation with an ejection fraction of 45% from an echocardiogram done in 2018. I will go ahead and start the patient on IV Lasix for his congestion and fluid overload at this point of time and eventually transition this to 40 mg every other day. 2. Benign essential hypertension. The patient to continue on antihypertensives. 3. Diabetes mellitus type 2. We will continue the patient's glyburide. 4. Chronic kidney disease stage 3 with possible prerenal azotemia. 5. Recent history of C. diff treatment. C. diff assay has been reordered. We will start the patient on oral vancomycin 125 mg q.i.d. at this point of time as I think he might have had recurrent C. diff diarrhea, never was incontinent after his recent treatment. We will closely monitor though until we get the PCR analysis. 6. Hyperlipidemia on statins. 7. History of sick sinus syndrome status post dual chamber pacemaker placement. According to the patient, the patient recently had an infection of the pacemaker, they are not sure about it, but he was treated with antibiotics. I do not see any documentation saying infection of the pacemaker in the recent past. I will repeat 2 sets of blood cultures just to make sure there is no bacteremia at this point of time. PLAN: Discussed in detail about the diagnosis, treatment, and followup with the patient as well as the patient's son, Mr. Stefan De Guzman. He is the MPOA for the patient and he can be reached at [phone]. The patient on DVT and GI prophylaxis. Close monitoring will be done on telemetry unit at this point of time and expect the patient will be admitted to the Hospitalist Services of more than 2 midnights. On further discussion with the patient's son as well as the patient, at this point of time, their concern is for fci placement as unfortunately the patient is not able to take care of himself and it is getting difficult for the patient to do enough support. So, we will consult Case Management for fci placement at this point of time. I expect the patient may discharge probably around 10/04/2018. I also have consulted Cardiology Services. If needed, we will consult Nephrology Services. We will have to keep a close eye on the patient's renal parameters secondary to possibly being elevated because of use of Lasix. If the renal parameters are elevated, we will probably consult Nephrology Services eventually. We will do strict I's and O's as well as daily weights. Job ID: [id number]
[2018-10-01] MEDS: Carvedilol 6.25 MG TAB PO SCH (16:50)
[2018-10-01] MEDS: Vancomycin HCl 25 MG/ML Oral PO SCH ×2 (17:52→20:44)
[2018-10-01] MEDS: Atorvastatin Calcium 40 MG TAB PO SCH (20:44)
--- NOTE | 2018-10-02 03:03 | CON ---
DATE OF CONSULTATION: PRIMARY CARE DOCTOR: Pee Adames DO PRIMARY MONORAIL OPERATOR: Carlos Clarke MD PRIMARY PROJECT PRODUCT MANAGER: Naif Goodman MD. REASON FOR CARDIAC CONSULT REQUEST: CHF. HISTORY OF PRESENT ILLNESS: Mr. De Guzman is an 83-year-old male with a significant history of pacemaker placement secondary to sick sinus syndrome, hypertension, chronic kidney disease, moderate aortic valve stenosis and history of myocardial infarction. The patient was here in August 2018 for reposition of atrial lead of the pacemaker. The patient was discharged from hospital on July 11, 2018. Since then, he continued having shortness of breath with mild exertion. However, he could walk with a walker in the [facility] where he lives at this moment. Yesterday, he started having the pain across the chest and headache to the right side when he lies on his right side and the patient's symptoms include chest pain, improved when he sleeps on the supine position. Also he felt really weak the Sunday morning. Due to those reasons, the patient called 911 and EMS transferred this patient to the emergency department for further evaluation and treatment. He also has also has had soft loose stool with occasional watery stool since June 2018. He said that his respiratory status is stable since he was discharged from June 2018. He weighed every day and he gained only 3 pounds over one month. at this moment, he denies any chest pain, heaviness, tightness, dizziness, nausea, vomiting, palpitation, or fluttering in his chest. His shortness breath is stable with room air at this moment. He had echocardiogram done in August 2018, which shows EF of 40%-45%, grade 1 diastolic dysfunction, moderate aortic valve stenosis and mild mitral valve regurgitation, and mild tricuspid regurgitation. The patient underwent pacemaker placement in April 2018 and atrial lead revision in June 2018. According to Dr. Clarke's consultation report, the patient has a history of myocardial infarction. PAST MEDICAL HISTORY: Hypertension, diabetes, history of myocardial infarction, prostate cancer, dementia, moderate aortic valve stenosis, chronic kidney disease, stage 3, and significant DVT. PAST SURGICAL HISTORY: Pacemaker placement in April 2018 and atrial lead revision in June 2018, and appendectomy and tonsillectomy. FAMILY HISTORY: The patient has a family history of coronary artery disease, hypertension without any premature instance. SOCIAL HISTORY: He is living in the assisted living. He is an ex-smoker. He quit a long time ago. He denied EtOH or illicit drug abuse. Prior to this admission, his condition was weak; however, he could walk around the hallway in his assisted living residence. ALLERGIES: HE IS ALLERGIC TO PENICILLIN. HOME MEDICATIONS: 1. Aspirin 81 mg once a day. 2. Atorvastatin 40 mg once a day. 3. Magnesium 100 mg twice a day. 4. Lasix 20 mg every other day. 5. Carvedilol 6.25 mg twice a day. 6. Glipizide 2.5 mg every a.m. 7. Metronidazole 500 mg every 8 hours for possible stomach flu. 8. Prednisone 2.5 mg once a day. REVIEW OF SYSTEMS: A 12-point review of systems is negative unless otherwise mentioned in the HPI. PHYSICAL EXAMINATION: VITAL SIGNS: Blood pressure 148/83, temperature 98.5, pulse is 87 with sinus rhythm, respiratory rate 18, O2 saturation 95% with room air. GENERAL: The patient is alert and oriented x4. He is lethargic because he just woke up from sleep. Other than that, the patient can follow commands and answer questions appropriately. HEENT: Head is normocephalic and atraumatic. Eyes, extraocular muscle movement intact. ENT and mouth, oral and nasal mucosa moist without lesion. NECK: Supple. Normal range of motion. RESPIRATORY: Clear to auscultation bilaterally, but diminished at the bases. No wheezing, rales, or rhonchi noted. CARDIOVASCULAR: Regular rate and rhythm. Normal S1, S2. No S3 or S4. No significant murmur, hives, or thrill noted. 2+ pulses in bilateral upper and lower extremities. No edema in the lower extremities. ABDOMEN: Soft, nontender. No mass to palpate. Bowel sounds are present. MUSCULOSKELETAL: The patient is able to move all extremities in bed. The patient denies claudication. SKIN: Warm and dry. No lesion, rash, or erythema noticed. PSYCHIATRIC: The patient's mood is appropriate. NEUROLOGIC: The patient is alert and oriented x4. The patient is able to follow commands and answer questions appropriately. IMAGING: EKG, 12-lead EKG at the ER shows a sinus rhythm with no ST-segment change or T-wave inversion. LABORATORY DATA: WBC 9.0, hemoglobin 11.7, hematocrit 36.4, platelet 116. Sodium 134, potassium 4.3, BUN 46, creatinine 1.76. AST 89, ALT 89, creatine kinase 27. Troponin 0.018, 0.017, 0.030. BNP 344.78. Chess x-ray shows stable chest with increased interstitial densities bilaterally. No significant change or progresses from the previous study. ASSESSMENT/PLAN: 1. Acute on chronic combined heart failure. The patient's condition is stable at this moment after the patient received 40 mg of Lasix IV push. The patient is going to receive Lasix 40 mg IV push every other day in the morning. The patient is being on carvedilol 6.25 mg twice a day, but no KIET inhibitor or ARB at this moment due to history of chronic kidney disease. We would like to continue to monitor the patient's condition and the creatinine level. 2. Atypical chest pain. The patient complaints of chest pain and headache when the patient lies on the right side, but the patient's symptoms including the chest pain have improved when the patient lies on the supine position. The patient's troponin level is within normal range and the patient's EKG has not changed, within normal range at this moment. The patient's vital signs are stable. We would like to continue to monitor at this moment. The patient is on aspirin 81 mg once a day and heparin 500 units three times a day, which we would like to change to twice a day due to high risk of bleeding. 3. History of coronary artery disease with history of myocardial infarction in the past. The patient's condition is stable at this moment. We would like to continue to monitor. The patient is on beta naseem, aspirin, and Lipitor 40 mg once a day. 4. Chronic kidney disease. The patient's creatinine level has not changed since last admission. If the patient's creatinine level is to continue to elevate, nephrology consult might be beneficial for this patient. 5. Hypertension. The patient's blood pressure is stable at this moment with current medication. 6. Diabetes type 2, which is managed by primary care doctor. 7. Pacemaker placement with lead revision in June 2018. The patient is on the telemetry, which has not show any abnormal heart rhythm. We would like to continue to monitor on the telemetry for now. Thank you very much for allowing the cardiology service to participate in the care of this patient. We will follow along the patient's care team and make further recommendations as appropriate. Job ID: [id number]
--- NOTE | 2018-10-02 08:00 | CON ---
DATE OF CONSULTATION: 10/01/2018 ADDENDUM: INDICATION FOR CONSULTATION: An 83-year-old patient who has been followed by Dr. Clarke, has a history of congestive heart failure in the past, has undergone pacemaker insertion, has history of coronary artery disease and also chronic kidney disease, as well as diabetes and essential hypertension. He had been in the hospital recently with C diff and he still says he has continued to have some loose stools. He was at his apartment yesterday when he knows he was having some chest discomfort. He was uncertain whether or not he was having a heart attack or stroke and he returned to the emergency room, and has been now admitted. At this time, his discomfort is resolved. He is feeling much better and he has no complaints at the time I saw him this evening, but he just says he has been feeling weak since he has been admitted to the hospital and this may be due to his recent bout with the diarrhea. He does appear to be slightly dehydrated still, and according to the laboratory, his BUN and creatinine ratio was greater than 20:1, indicating some prerenal azotemia. He also has diabetes and this has been relatively stable despite the illnesses. He also has had cardiac enzymes which were indeterminate. The first two sets were normal and then the third set of cardiac enzymes shows a troponin I of 0.030. His BNP is only mildly elevated at 344. His last echocardiogram that I see of records shows ejection fraction about 40% to 45% with diastolic dysfunction. He also has mitral and tricuspid valve regurgitations as well as some moderate aortic valve stenosis. PAST MEDICAL HISTORY: Please refer to the notes dictated by my nurse practitioner, Zhao Tyson. SOCIAL HISTORY: Please refer to the notes dictated by my nurse practitioner, Zhao Tyson. FAMILY HISTORY: Please refer to the notes dictated by my nurse practitioner, Zhao Tyson. REVIEW OF SYSTEMS: Please refer to the notes dictated by my nurse practitioner, Zhao Tyson. MEDICATIONS: Please refer to the notes dictated by my nurse practitioner, Zhao Tyson. ALLERGIES: PLEASE REFER TO THE NOTES DICTATED BY MY NURSE PRACTITIONER, ZHAO TYSON. PHYSICAL EXAMINATION: GENERAL: Reveals an elderly gentleman, who is in no acute distress at this time. He actually was asleep when I went to the room and had to wake him up to do the history and physical. At this time, he is very comfortable. VITAL SIGNS: His blood pressure is 108/60, heart rate is in the 80s and shows a sinus rhythm without any acute changes. He is afebrile, 98.9, O2 saturation 92%, respiratory rate 14 to 16 respirations per minute. HEENT: Shows the head to be normocephalic and atraumatic. Carotid pulses are present. I did not hear any significant bruits at this time. CHEST: Actually clear. I did not hear any rales, rhonchi, or wheezing. CARDIOVASCULAR: Reveals a regular rate and rhythm. He has systolic murmur at the upper sternal border and also at the apex. ABDOMEN: Soft. He has positive bowel sounds, he actually has increased bowel sounds. He has no significant tenderness. No masses. EXTREMITIES: Show no clubbing, cyanosis, or edema. Pedal pulses are present, but somewhat difficult to palpate. NEUROLOGIC: The patient appears to be fully intact. SKIN: Warm and dry at this time. IMPRESSION: 1. History of chest discomfort, which may or may not be due to coronary artery disease, but most likely not due to coronary artery disease despite history of disease in the past. He appears to be stable without evidence of elevation of the cardiac enzymes or without significant EKG changes. 2. Chronic kidney disease. He also appears to have some prerenal azotemia. 3. Diabetes. We will continue his present medications. 4. Hypertension, this is under good control at this time. 5. History of pacemaker insertion, this appears to be also functioning normally. 6. Mild cardiomyopathy. We would agree with his present medications. We would continue with the beta blockers as well as mild diuretics. 7. Most likely, possibly repeat or recurrence of his Clostridium difficile and he has actually been started on medications for this. We will be more than happy to continue to follow the patient with you, but at this time, from a cardiac standpoint, he actually appears to be doing quite well. Job ID: [id number]
[2018-10-02] MEDS ORDERED: predniSONE 5 MG TAB PO SCH ×3 (09:00→12:45)
[2018-10-02] MEDS ORDERED: Prevnar 13-Val Conj/PF 0.5 ML SYRINGE IM ONE (09:00)
[2018-10-02] MEDS: Carvedilol 6.25 MG TAB PO SCH ×2 (09:02→16:59)
[2018-10-02] MEDS: Aspirin 81 mg Enteric Coated Tablet PO SCH (09:02)
[2018-10-02] MEDS: Vancomycin HCl 25 MG/ML Oral PO SCH ×4 (09:03→21:28)
[2018-10-02] MEDS: Famotidine 20 MG TAB PO SCH (09:03)
[2018-10-02 09:31] LABS: #Eosinphils 0.4 thou/uL (0.0-0.7); #Lymphocytes 1.1 thou/uL (1.20-3.40); #Monocytes 0.9 thou/uL (0.11-0.59); #Neutrophils 5.4 thou/uL (1.40-6.50); %Basophils 0.5 % (0.0-1.0); %Eosinophils 5.4 % (0.0-10.0); %Lymphocytes 13.9 % (21.0-51.0); %Monocytes 11.6 % (0.0-10.0); %Neutrophils 68.6 % (42.0-75.0); Hemoglobin 11.4 g/dL (14.0-18.0); Mean Corpuscular HGB CONC 32.3 g/dL (32.0-36.0); Mean Corpuscular Hemoglobin 31.6 pg (27.0-31.0); Mean Corpuscular Volume 97.7 fL (78.0-98.0); Mean Platelet Volume 7.5 fL (7.4-10.4); Platelet Count 111 thou/uL (130-400); RBC Distribution Width 13.1 % (11.5-14.5); Red Blood Cell (RBC) Count 3.61 mill/uL (4.70-6.10); White Blood Cell (WBC) Count 7.8 thou/uL (4.8-10.8)
[2018-10-02 09:43] LABS: ALT (SGPT) 56 U/L (8-55); AST (SGOT) 36 U/L (5-34); Albumin 3.1 g/dL (3.4-4.8); Alkaline Phosphatase 245 U/L (40-150); Anion Gap 11 mmol/L (10-20); BUN (Urea Nitrogen) 41 mg/dL (8.4-25.7); Bilirubin, Total 1.1 mg/dL (0.2-1.2); Calc. Creatinine Clearance 31 mL/min (70-130); Calcium 9.1 mg/dL (7.8-10.44); Carbon Dioxide 30 mmol/L (23-31); Chloride 103 mmol/L (98-107); Estimated GFR-MDRD 41; Globulin 3.1 g/dL (2.4-3.5); Glucose 94 mg/dL (83-110); Magnesium 1.5 mg/dL (1.6-2.6); Protein, Total 6.2 g/dL (5.8-8.1); Sodium 140 mmol/L (136-145); Uric Acid 8.8 mg/dL (3.5-7.2)
[2018-10-02] MEDS: Heparin 5,000 UNITS/ML VIAL SC SCH ×2 (10:44→21:24)
--- NOTE | 2018-10-02 11:06 | PDOC.PN ---
- Subjective Encounter Start Date: 10/02/18 Encounter Start Time: 08:10 Patient seen and examined. No new complaints. No overnight events - Objective Resuscitation Status - Order Detail: 10/01/18 08:48 Resuscitation Status Routine Resuscitation Status: FULL: Full Resuscitation MAR Reviewed: Yes Vital Signs & Weight: Vital Signs (12 hours) Temp Pulse Resp BP BP Pulse Ox 10/02/18 09:02 148/83 H 10/02/18 07:54 98.7 F 93 18 138/67 92 L 10/02/18 03:55 98.4 F 88 14 137/72 92 L Weight Weight 144 lb Result Diagrams: 10/02/18 09:16 10/02/18 09:16 Additional Labs: Accuchecks 10/02/18 10/01/18 10/01/18 04:50 20:57 16:30 POC Glucose 105 166 H 164 H Radiology Reviewed by me: Yes EKG Reviewed by me: Yes Phys Exam - Physical Examination Constitutional: NAD HEENT: PERRLA, moist MMs, sclera anicteric Neck: no JVD, supple Respiratory: no wheezing, no rhonchi few basal rales Cardiovascular: RRR, no rub SM+ at aortic area Gastrointestinal: soft, non-tender, no distention, positive bowel sounds Musculoskeletal: pulses present trace edema+ Neurological: non-focal, normal sensation Lymphatic: no nodes Psychiatric: normal affect Skin: no rash, normal turgor Dx/Plan (1) Acute on chronic systolic ACC/AHA stage C congestive heart failure Code(s): I50.23 - ACUTE ON CHRONIC SYSTOLIC (CONGESTIVE) HEART FAILURE Status : Acute (2) CAD (coronary artery disease) Code(s): I25.10 - ATHSCL HEART DISEASE OF [place] CORONARY ARTERY W/O ANG PCTRS Status: Chronic (3) CKD (chronic kidney disease) stage 3, GFR 30-59 ml/min Code(s): N18.3 - CHRONIC KIDNEY DISEASE, STAGE 3 (MODERATE) Status: Chronic (4) DM2 (diabetes mellitus, type 2) Status: Chronic Comment: Stop metformin given CRYSTAL/CKD (5) H/O prostate cancer Code(s): Z85.46 - PERSONAL HISTORY OF MALIGNANT NEOPLASM OF PROSTATE Status: Chronic (6) HTN (hypertension) Code(s): I10 - ESSENTIAL (PRIMARY) HYPERTENSION Status: Chronic (7) Moderate aortic stenosis by prior echocardiogram Code(s): I35.0 - NONRHEUMATIC AORTIC (VALVE) STENOSIS Status: Chronic (8) Pacemaker Code(s): Z95.0 - PRESENCE OF CARDIAC PACEMAKER Status: Chronic Comment: - Plan cont current plan of care, plan discussed w/ family, PT/OT * home medication reconciled * continue lasix * contineu PT * discharge planning * discussed with daughter * medication reviewed as below * symptomatic treatment * overall doing better and improving. Review of Systems - Review of Systems Eyes: negative: Pain, Vision Change, Conjunctivae Inflammation, Eyelid Inflammation, Redness, Other ENT: negative: Ear Pain, Ear Discharge, Nose Pain, Nose Discharge, Nose Congestion, Mouth Pain, Mouth Swelling, Throat Pain, Throat Swelling, Other Respiratory: Shortness of Breath, SOB with Excertion. negative: Cough, Dry, Hemoptysis, Pleuritic Pain, Sputum, Wheezing Cardiovascular: negative: chest pain, palpitations, orthopnea, paroxysmal nocturnal dyspnea, edema, light headedness, other Gastrointestinal: negative: Nausea, Vomiting, Abdominal Pain, Diarrhea, Constipation, Melena, Hematochezia, Other Genitourinary: negative: Dysuria, Frequency, Incontinence, Hematuria, Retention , Other Musculoskeletal: negative: Neck Pain, Shoulder Pain, Arm Pain, Back Pain, Hand Pain, Leg Pain, Foot Pain, Other - Medications/Allergies Allergies/Adverse Reactions: Allergies Allergy/AdvReac Type Severity Reaction Status Date / Time Penicillins Allergy Verified 09/03/18 22:05 Medications: Current Medications Acetaminophen (Tylenol) 650 mg PO Q4H PRN PRN Reason: Headache/Fever/Mild Pain (1-3) Last Admin: 10/01/18 10:14 Dose: 650 mg Aspirin (Ecotrin) 81 mg PO DAILY [facility] Last Admin: 10/02/18 09:02 Dose: 81 mg Atorvastatin Calcium (Lipitor) 40 mg PO HS [facility] Last Admin: 10/01/18 20:44 Dose: 40 mg Carvedilol (Coreg) 6.25 mg PO BID-WM [facility] Last Admin: 10/02/18 09:02 Dose: 6.25 mg Famotidine (Pepcid) 20 mg PO DAILY [facility] Last Admin: 10/02/18 09:03 Dose: 20 mg Furosemide (Lasix) 40 mg SLOW IVP Q2D@0900 [facility] Heparin Sodium (Porcine) (Heparin) 5,000 units SC BID [facility] Last Admin: 10/02/18 10:44 Dose: 5,000 units Isosorbide Mononitrate (Imdur Er) 30 mg PO DAILY [facility] Last Admin: 10/02/18 09:03 Dose: 30 mg Ondansetron HCl (Zofran Odt) 4 mg PO Q6H PRN PRN Reason: Nausea/Vomiting Prednisone (Prednisone) 2.5 mg PO DAILY [facility] Vancomycin HCl (First Vancomycin) 125 mg PO QID [facility] Stop: 10/08/18 07:00 Last Admin: 10/02/18 09:03 Dose: 125 mg
[2018-10-02] MEDS: Atorvastatin Calcium 40 MG TAB PO SCH (21:25)
[2018-10-03] MEDS ORDERED: Magnesium Sulfate 3 GM in Sodium Chloride 0.9% 100 ML IVPB SCH (08:00)
[2018-10-03] MEDS ORDERED: Furosemide 40 MG/4 ML VIAL SLOW IVP SCH (09:00)
--- NOTE | 2018-10-03 10:01 | PDOC.PN ---
- Subjective Encounter Start Date: 10/03/18 Encounter Start Time: 08:00 Patient seen and examined. No new complaints. No overnight events - Objective Resuscitation Status - Order Detail: 10/01/18 08:48 Resuscitation Status Routine Resuscitation Status: FULL: Full Resuscitation MAR Reviewed: Yes Vital Signs & Weight: Vital Signs (12 hours) Temp Pulse Resp BP Pulse Ox 10/03/18 07:30 98.6 F 74 18 129/69 93 L 10/03/18 04:03 98.3 F 91 16 123/89 93 L Weight Admit Weight 144 lb Weight 145 lb 2 oz I&O: 10/02/18 10/03/18 10/04/18 06:59 06:59 06:59 Intake Total 1040 Output Total 920 Balance 120 Result Diagrams: 10/02/18 09:16 10/02/18 09:16 Additional Labs: Accuchecks 10/03/18 10/02/18 10/02/18 06:01 22:21 17:16 POC Glucose 95 181 H 140 H EKG Reviewed by me: Yes Phys Exam - Physical Examination Constitutional: NAD HEENT: PERRLA, moist MMs, sclera anicteric Neck: no JVD, supple Respiratory: no wheezing, no rhonchi few rales+ Cardiovascular: RRR, no significant murmur, no rub Gastrointestinal: soft, non-tender, no distention, positive bowel sounds Musculoskeletal: no edema, pulses present Neurological: non-focal, normal sensation, moves all 4 limbs Lymphatic: no nodes Psychiatric: normal affect, A&O x 3 Skin: no rash, normal turgor Dx/Plan (1) Acute on chronic systolic ACC/AHA stage C congestive heart failure Code(s): I50.23 - ACUTE ON CHRONIC SYSTOLIC (CONGESTIVE) HEART FAILURE Status : Acute (2) CAD (coronary artery disease) Code(s): I25.10 - ATHSCL HEART DISEASE OF [place] CORONARY ARTERY W/O ANG PCTRS Status: Chronic (3) CKD (chronic kidney disease) stage 3, GFR 30-59 ml/min Code(s): N18.3 - CHRONIC KIDNEY DISEASE, STAGE 3 (MODERATE) Status: Chronic (4) DM2 (diabetes mellitus, type 2) Status: Chronic Comment: Stop metformin given CRYSTAL/CKD (5) H/O prostate cancer Code(s): Z85.46 - PERSONAL HISTORY OF MALIGNANT NEOPLASM OF PROSTATE Status: Chronic (6) HTN (hypertension) Code(s): I10 - ESSENTIAL (PRIMARY) HYPERTENSION Status: Chronic (7) Moderate aortic stenosis by prior echocardiogram Code(s): I35.0 - NONRHEUMATIC AORTIC (VALVE) STENOSIS Status: Chronic (8) Pacemaker Code(s): Z95.0 - PRESENCE OF CARDIAC PACEMAKER Status: Chronic Comment: (9) Hypomagnesemia Code(s): E83.42 - HYPOMAGNESEMIA Status: Acute - Plan cont current plan of care, plan discussed w/ family * continue today lasix * expecting discharge tomorrow * replace magnesium * repeat labs tomorrow * discussed with family * medication reviewed as below * symptomatic treatment. Review of Systems - Review of Systems ENT: negative: Ear Pain, Ear Discharge, Nose Pain, Nose Discharge, Nose Congestion, Mouth Pain, Mouth Swelling, Throat Pain, Throat Swelling, Other Respiratory: negative: Cough, Dry, Shortness of Breath, Hemoptysis, SOB with Excertion, Pleuritic Pain, Sputum, Wheezing Cardiovascular: negative: chest pain, palpitations, orthopnea, paroxysmal nocturnal dyspnea, edema, light headedness, other Gastrointestinal: negative: Nausea, Vomiting, Abdominal Pain, Diarrhea, Constipation, Melena, Hematochezia, Other Genitourinary: negative: Dysuria, Frequency, Incontinence, Hematuria, Retention , Other Musculoskeletal: negative: Neck Pain, Shoulder Pain, Arm Pain, Back Pain, Hand Pain, Leg Pain, Foot Pain, Other - Medications/Allergies Allergies/Adverse Reactions: Allergies Allergy/AdvReac Type Severity Reaction Status Date / Time Penicillins Allergy Verified 09/03/18 22:05 Medications: Current Medications Acetaminophen (Tylenol) 650 mg PO Q4H PRN PRN Reason: Headache/Fever/Mild Pain (1-3) Last Admin: 10/01/18 10:14 Dose: 650 mg Aspirin (Ecotrin) 81 mg PO DAILY [facility] Last Admin: 10/02/18 09:02 Dose: 81 mg Atorvastatin Calcium (Lipitor) 40 mg PO HS [facility] Last Admin: 10/02/18 21:25 Dose: 40 mg Carvedilol (Coreg) 6.25 mg PO BID-[facility] Last Admin: 10/02/18 16:59 Dose: 6.25 mg Famotidine (Pepcid) 20 mg PO DAILY [facility] Last Admin: 10/02/18 09:03 Dose: 20 mg Furosemide (Lasix) 40 mg SLOW IVP Q2D@0900 [facility] Heparin Sodium (Porcine) (Heparin) 5,000 units SC BID [facility] Last Admin: 10/02/18 21:24 Dose: 5,000 units Magnesium Sulfate 3 gm/ Sodium (Chloride) 106 mls @ 100 mls/hr IVPB 0800 [facility] Stop: 10/03/18 12:00 Isosorbide Mononitrate (Imdur Er) 30 mg PO DAILY [facility] Last Admin: 10/02/18 09:03 Dose: 30 mg Ondansetron HCl (Zofran Odt) 4 mg PO Q6H PRN PRN Reason: Nausea/Vomiting Prednisone (Prednisone) 2.5 mg PO DAILY [facility] Vancomycin HCl (First Vancomycin) 125 mg PO QID [facility] Stop: 10/08/18 07:00 Last Admin: 10/02/18 21:28 Dose: 125 mg
[2018-10-03] MEDS: Famotidine 20 MG TAB PO SCH (10:15)
[2018-10-03] MEDS: Carvedilol 6.25 MG TAB PO SCH ×2 (10:15→17:22)
[2018-10-03] MEDS: Aspirin 81 mg Enteric Coated Tablet PO SCH (10:15)
[2018-10-03] MEDS: predniSONE 5 MG TAB PO SCH (10:15)
[2018-10-03] MEDS: Heparin 5,000 UNITS/ML VIAL SC SCH ×2 (10:16→21:27)
[2018-10-03] MEDS: Vancomycin HCl 25 MG/ML Oral PO SCH ×4 (10:16→21:26)
[2018-10-03] MEDS: Atorvastatin Calcium 40 MG TAB PO SCH (21:26)
[2018-10-04 04:29] LABS: #Eosinphils 0.4 thou/uL (0.0-0.7); #Lymphocytes 1.4 thou/uL (1.20-3.40); #Monocytes 0.7 thou/uL (0.11-0.59); #Neutrophils 4.2 thou/uL (1.40-6.50); %Basophils 0.6 % (0.0-1.0); %Eosinophils 6.3 % (0.0-10.0); %Lymphocytes 20.5 % (21.0-51.0); %Monocytes 10.4 % (0.0-10.0); %Neutrophils 62.2 % (42.0-75.0); Hemoglobin 10.1 g/dL (14.0-18.0); Mean Corpuscular HGB CONC 33.3 g/dL (32.0-36.0); Mean Corpuscular Hemoglobin 32.1 pg (27.0-31.0); Mean Corpuscular Volume 96.6 fL (78.0-98.0); Mean Platelet Volume 7.3 fL (7.4-10.4); Platelet Count 123 thou/uL (130-400); RBC Distribution Width 12.9 % (11.5-14.5); Red Blood Cell (RBC) Count 3.14 mill/uL (4.70-6.10); White Blood Cell (WBC) Count 6.7 thou/uL (4.8-10.8)
[2018-10-04 04:45] LABS: Anion Gap 11 mmol/L (10-20); BUN (Urea Nitrogen) 50 mg/dL (8.4-25.7); Calc. Creatinine Clearance 29 mL/min (70-130); Calcium 9.1 mg/dL (7.8-10.44); Carbon Dioxide 30 mmol/L (23-31); Chloride 104 mmol/L (98-107); Estimated GFR-MDRD 38; Glucose 96 mg/dL (83-110); Magnesium 2.3 mg/dL (1.6-2.6); Potassium 3.7 mmol/L (3.5-5.1); Sodium 141 mmol/L (136-145)
[2018-10-04] MEDS ORDERED: Lisinopril 5 MG TAB PO SCH (09:00)
[2018-10-04 10:03] VITALS: BP 140/68; TEMP 97.6
[2018-10-04] MEDS: Aspirin 81 mg Enteric Coated Tablet PO SCH (10:06)
[2018-10-04] MEDS: Carvedilol 6.25 MG TAB PO SCH (10:06)
[2018-10-04] MEDS: predniSONE 5 MG TAB PO SCH (10:06)
[2018-10-04] MEDS: Famotidine 20 MG TAB PO SCH (10:07)
[2018-10-04] MEDS: Heparin 5,000 UNITS/ML VIAL SC SCH (10:08)
--- NOTE | 2018-10-04 10:57 | DIS ---
DATE OF ADMISSION: 10/01/2018 DATE OF DISCHARGE: 10/04/2018 PRIMARY CARE PHYSICIAN: Dr. Pee Adames. DISCHARGE DISPOSITION: Assisted living facility with home health. PRIMARY DISCHARGE DIAGNOSES: 1. Acute on chronic systolic congestive heart failure stage C. 2. Hypomagnesemia. SECONDARY DISCHARGE DIAGNOSES: 1. Pacemaker. 2. Moderate aortic stenosis. 3. Hypertension. 4. History of prostate cancer. 5. Diabetes type 2. 6. Chronic kidney disease stage 3. 7. Coronary artery disease. 8. Chronic systolic heart failure. PRIMARY PROCEDURE/OPERATION: None. RADIOLOGICAL INVESTIGATION: Chest x-ray showed pulmonary vascular congestion. SIGNIFICANT LABORATORY DATA: WBC 6.7, hemoglobin 10.1, platelet 123, creatinine 1.72. Urinalysis normal. Blood culture negative. Stool for C diff negative. DISCHARGE MEDICATIONS: 1. Aspirin 81 mg p.o. daily. 2. Prednisone 2.5 mg daily. 3. Lipitor 40 mg at bedtime. 4. Coreg 6.25 mg b.i.d. 5. Lasix 20 mg daily. 6. Glyburide 2.5 mg daily. 7. Imdur 30 mg daily. 8. Lisinopril 5 mg p.o. daily. CONTRAINDICATION: None. CODE STATUS: Full code. 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 TEST RESULTS PENDING ON DISCHARGE: None. ALLERGIES: PENICILLIN. DISCHARGE PLAN: Posthospital, the patient will follow up with primary care physician in 1 or 2 weeks. HOSPITAL COURSE: An 83-year-old male, who was admitted by Dr. Richardson. Please see his H and P for further detail. His presentation was consistent with CHF. He has underlying systolic heart failure based on last echo. EF was 40% to 45% along with diastolic dysfunction. This patient had chest x-ray, which showed pulmonary vascular congestion. We treated him with Lasix and we made him euvolemic. His renal function are pretty much stable. We replaced his abnormal electrolytes. This patient is planned for discharge to assisted living facility, where we are arranging home health for senior living. The patient was taking vancomycin for his previous C diff infection, which has been completely resolved. I have seen and examined the patient at bedside today. His vitals are stable. His examination is completely unremarkable other than he has soft systolic murmur in aortic area for moderate aortic stenosis, but his lung examination is clear and extremity is without edema. We are arranging home health before discharge today. Job ID: [id number]
--- NOTE | 2018-10-05 13:45 | EKG ---
Test Reason : CP Blood Pressure : / mmHG Vent. Rate : 085 BPM Atrial Rate : 085 BPM P-R Int : 140 ms QRS Dur : 084 ms QT Int : 378 ms P-R-T Axes : 028 -26 139 degrees QTc Int : 449 ms Normal sinus rhythm Left ventricular hypertrophy with repolarization abnormality Inferior infarct , age undetermined Anterior infarct , age undetermined Abnormal ECG Confirmed by ROXY VELEZ, JAY JAY ([id number]), news editor AZRA AVILA ([id number]) on 10/05/2018 1:44:59 PM Referred By: Confirmed By:JAY JAY RAMSEY MD
== END 2018-10-04 11:29 | disposition home health service (06) | DRG 291 ==
LOC: ERS 22:29 → ERHOLD 10-01 04:53 → OBSVTOIN 10-01 08:48 → 2NO 10-01 14:05
PROVIDERS: ADMIT Internal Medicine; ATTEND Internal Medicine
DX: I13.0 Hypertensive heart and chronic kidney disease with heart failure and stage 1 through stage 4 chronic kidney disease, or unspecified chronic kidney disease (principal); I50.23 Acute on chronic systolic (congestive) heart failure; E11.22 Type 2 diabetes mellitus with diabetic chronic kidney disease; N18.3 Chronic kidney disease, stage 3 (moderate); I25.2 Old myocardial infarction; I25.10 Atherosclerotic heart disease of native coronary artery without angina pectoris; Z85.46 Personal history of malignant neoplasm of prostate; Z95.0 Presence of cardiac pacemaker; I42.9 Cardiomyopathy, unspecified; E78.5 Hyperlipidemia, unspecified; I35.0 Nonrheumatic aortic (valve) stenosis; E83.42 Hypomagnesemia
CPT/HCPCS: 36415; 36416; 71045; 80048; 80053; 81003; 81015; 82550; 83690; 83735; 83880; 84484; 84550; 85025; 87040; 87149; 87324; 87449; 93005; 96361; 96374; J1644; J1940; J2270; J3475; J7050; J7512

== ENCOUNTER 2018-11-21 09:49 | Emergency (ER) | payer MEDICARE, OTHER ==
[2018-11-21 10:56] LABS: #Basophils 0.1 thou/uL (0.0-0.2); #Eosinphils 0.7 thou/uL (0.0-0.7); #Lymphocytes 0.9 thou/uL (1.20-3.40); #Monocytes 0.7 thou/uL (0.11-0.59); #Neutrophils 7.2 thou/uL (1.40-6.50); %Basophils 0.9 % (0.0-1.0); %Eosinophils 7.4 % (0.0-10.0); %Lymphocytes 9.1 % (21.0-51.0); %Monocytes 7.6 % (0.0-10.0); Hemoglobin 10.6 g/dL (14.0-18.0); Mean Corpuscular Hemoglobin 29.9 pg (27.0-31.0); Mean Corpuscular Volume 93.3 fL (78.0-98.0); Mean Platelet Volume 6.8 fL (7.4-10.4); Platelet Count 228 thou/uL (130-400); RBC Distribution Width 13.7 % (11.5-14.5); Red Blood Cell (RBC) Count 3.55 mill/uL (4.70-6.10); White Blood Cell (WBC) Count 9.6 thou/uL (4.8-10.8)
[2018-11-21 11:17] LABS: ALT (SGPT) 35 U/L (8-55); AST (SGOT) 43 U/L (5-34); Albumin 3.4 g/dL (3.4-4.8); Alkaline Phosphatase 375 U/L (40-150); Anion Gap 15 mmol/L (10-20); BUN (Urea Nitrogen) 52 mg/dL (8.4-25.7); Bilirubin, Total 0.7 mg/dL (0.2-1.2); Calc. Creatinine Clearance 0 mL/min (70-130); Calcium 9.4 mg/dL (7.8-10.44); Carbon Dioxide 24 mmol/L (23-31); Chloride 103 mmol/L (98-107); Estimated GFR-MDRD 31; Globulin 4.3 g/dL (2.4-3.5); Glucose 195 mg/dL (83-110); Potassium 4.5 mmol/L (3.5-5.1); Protein, Total 7.7 g/dL (5.8-8.1); Sodium 137 mmol/L (136-145)
--- NOTE | 2018-11-21 12:19 | RAD ---
Portable frontal chest radiograph: 11/21/2018 COMPARISON: 09/30/2018 HISTORY: Weakness FINDINGS: Stable dual lead transvenous pacing device. Stable mild pulmonary vascular prominence and p erihilar increased linear interstitial density. Prominence of the cardiac silhouette is again noted. No pneumothorax, lobar consolidation, or alveolar edema. Increased density in the lung base on the left is stable, likely on the basis of soft tissue attenuation or atelectasis. IMPRESSION: No significant interval change
== END 2018-11-21 13:58 | disposition home or self-care (01) ==
LOC: ERS 09:49
DX: I11.0 Hypertensive heart disease with heart failure (principal); I50.9 Heart failure, unspecified; I25.10 Atherosclerotic heart disease of native coronary artery without angina pectoris; E11.9 Type 2 diabetes mellitus without complications; F32.9 Major depressive disorder, single episode, unspecified; Z87.891 Personal history of nicotine dependence; Z79.899 Other long term (current) drug therapy; Z79.82 Long term (current) use of aspirin; Z79.84 Long term (current) use of oral hypoglycemic drugs
CPT/HCPCS: 71045; 80053; 82550; 83880; 84484; 85025; 93005

== ENCOUNTER 2018-12-24 10:30 | Outpatient (CLI) | payer MEDICARE, OTHER ==
--- NOTE | 2018-12-24 11:16 | BD ---
EXAM: DEXA bone density examination HISTORY: Osteoporosis screening COMPARISON: None FINDINGS: L1--bone mineral density 1.085 g/sq cm; T score 0.1 L2--bone mineral density 1.105 g/sq cm; T score 0.1 L3--bone mineral density 1.308 g/sq cm; T score 1.9 L4--bone mineral density 1.254 g/sq cm; T score 1.5 Total L1-L4--bone mineral density 1.196 g/sq cm; T score 1.0 Left femoral neck--bone mineral density0.807; T score -0.9 Total proximal left femur--bone mineral density 1.055; T score 0.1 IMPRESSION: Normal bone mineral density.
== END 2018-12-24 10:31 | disposition home or self-care (01) ==
LOC: BICMAMMO 10:30
PROVIDERS: ATTEND Family Medicine
DX: Z13.820 Encounter for screening for osteoporosis (principal); Z79.52 Long term (current) use of systemic steroids
CPT/HCPCS: 77080

== ENCOUNTER 2019-05-05 09:46 | Inpatient (IN) | payer MEDICARE, OTHER ==
[2019-05-05 10:43] LABS: #Basophils 0.1 thou/uL (0.0-0.2); #Eosinphils 0.6 thou/uL (0.0-0.7); #Lymphocytes 1.1 thou/uL (1.20-3.40); #Monocytes 0.6 thou/uL (0.11-0.59); #Neutrophils 6.2 thou/uL (1.40-6.50); %Basophils 0.7 % (0.0-1.0); %Eosinophils 6.7 % (0.0-10.0); %Lymphocytes 12.8 % (21.0-51.0); %Monocytes 6.5 % (0.0-10.0); %Neutrophils 73.3 % (42.0-75.0); Hemoglobin 12.9 g/dL (14.0-18.0); Mean Corpuscular HGB CONC 34.3 g/dL (32.0-36.0); Mean Corpuscular Hemoglobin 31.9 pg (27.0-31.0); Mean Corpuscular Volume 93.2 fL (78.0-98.0); Mean Platelet Volume 7.4 fL (7.4-10.4); Platelet Count 133 thou/uL (130-400); RBC Distribution Width 12.7 % (11.5-14.5); Red Blood Cell (RBC) Count 4.03 mill/uL (4.70-6.10); White Blood Cell (WBC) Count 8.5 thou/uL (4.8-10.8)
[2019-05-05 11:05] LABS: ALT (SGPT) 9 U/L (8-55); AST (SGOT) 14 U/L (5-34); Alkaline Phosphatase 68 U/L (40-110); Anion Gap 13 mmol/L (10-20); BUN (Urea Nitrogen) 59 mg/dL (8.4-25.7); Bilirubin, Total 0.7 mg/dL (0.2-1.2); Calc. Creatinine Clearance 0 mL/min (70-130); Calcium 9.6 mg/dL (7.8-10.44); Carbon Dioxide 31 mmol/L (23-31); Chloride 100 mmol/L (98-107); Estimated GFR-MDRD 21; Globulin 3.7 g/dL (2.4-3.5); Glucose 132 mg/dL (83-110); Potassium 4.3 mmol/L (3.5-5.1); Protein, Total 7.7 g/dL (5.8-8.1); Sodium 140 mmol/L (136-145)
[2019-05-05] MEDS ORDERED: Ondansetron PF 4 MG/2 ML Vial IVP PRN (11:55)
[2019-05-05] MEDS ORDERED: Ondansetron ODT 4 MG TAB PO PRN (11:55)
[2019-05-05] MEDS ORDERED: Acetaminophen 325 MG TAB PO PRN (11:55)
--- NOTE | 2019-05-05 12:44 | HP ---
PRIMARY CARE PHYSICIAN: Pee Adames DO. CHIEF COMPLAINT: Lump on the left upper chest. HISTORY OF PRESENT ILLNESS: Mr. De Guzman is an 84-year-old man with a past medical history of hypertension, hyperlipidemia, chronic kidney disease, coronary artery disease, diabetes mellitus type 2, prostate cancer, and pacemaker implantation, who had came to the hospital earlier today after he had noticed a lump on the left upper chest area, that started on Sunday. He was found to have his pacemaker starting to erode through the skin. He had denied any fever, chills, any headache, blurred vision, dizziness, any chest pain, palpitations, shortness of breath, abdominal pain, nausea, or vomiting. The ED staff called Dr. Clarke, his primary actuarial intern, who had recommended a consult to Dr. Oden, placed an interrogation of the pacemaker, which had found that the pacemaker was essentially nonfunctioning. The patient states that he had the pacemaker placed about a year ago up in [place] in 04/2018. The patient denies any other complaints at this time. REVIEW OF SYSTEMS: All other systems reviewed and found to be negative unless mentioned in HPI. PAST MEDICAL HISTORY: 1. Hypertension. 2. Hyperlipidemia. 3. Diabetes mellitus, type 2. 4. Coronary artery disease. 5. Previous ID x2. 6. History of prostate cancer. 7. Pacemaker. PAST SURGICAL HISTORY: 1. Prostate cancer radiation. 2. Appendectomy. 3. Tonsillectomy. PSYCHIATRIC HISTORY: Includes depression. SOCIAL HISTORY: The patient denies alcohol, tobacco, or illicit drug use. He is a former tobacco smoker and quit more than 10 years ago. KNOWN ALLERGIES: Penicillins. CURRENT HOME MEDICATIONS: 1. Aspirin 81 mg daily. 2. Carvedilol 6.25 mg oral twice daily. 3. Glyburide 2.5 mg oral twice daily. 4. Furosemide 20 mg oral daily. 5. Lisinopril 5 mg oral daily. 6. Isosorbide mononitrate 30 mg oral daily. PHYSICAL EXAMINATION: VITAL SIGNS: BP 120/76, pulse 80, respirations 16, temperature 97.6, and O2 saturation 96% on room air. GENERAL: The patient is awake, alert, and oriented x3. He is currently lying comfortably in bed and in no acute distress. His [id number] is at bedside. HEENT: Atraumatic and normocephalic. Pupils are round and reactive to light. Extraocular muscles intact. Moist mucous membranes noted. NECK: Soft and supple. Trachea midline. CARDIOVASCULAR: Positive S1 and S2. Regular rate and rhythm. No murmur auscultated. The patient has a firm pouch from his pacemaker to the left upper chest, nontender, and there are no signs of skin breakdown at this time. RESPIRATORY: Clear to auscultation bilaterally. No wheezes, rales, or rhonchi. ABDOMEN: Soft and nontender. Bowel sounds present. MUSCULOSKELETAL: Moves all extremities equal. Pedal and radial pulses 2+ bilaterally. No edema noted. NEUROLOGIC: Cranial nerves 2 through 12 grossly intact. No focal deficits noted. Speech intact and normal. Gait not assessed. SKIN: Warm, dry, and intact. No rashes. No ulceration noted. PSYCHIATRIC: Good mood and affect. LABORATORY DATA: WBC 8.5, RBC 4.03, hemoglobin 12.9, hematocrit 37.5, and platelets 133. Sodium 140, potassium 4.3, anion gap 13, BUN 59, creatinine 2.84, estimated GFR 21, glucose 132, and lactic acid 1.9. DIAGNOSTIC IMAGING: None. ASSESSMENT AND PLAN: 1. Malfunctioning pacemaker that is starting to erode to the skin, Dr. Clarke is consulted and his pacemaker was found to be essentially nonfunctioning in the ED after a pacemaker interrogation was performed. He will be placed on his home regimen at this time and monitored closely. Dr. Oden was also contacted, who had recommended no antibiotics at this time. 2. Nzqta-uq-zfmzqii kidney disease. The patient's BUN and creatinine are slightly above his baseline. Therefore, his home dose of lisinopril will be held and all other nephrotoxic medications. We will repeat BMP in the morning. 3. History of hypertension. Monitor blood pressure and other vital signs closely. He will be resumed on his home regimen other than his home dose of lisinopril as above. 4. Diabetes mellitus, type 2. We will continue home regimen and monitor Accu-Cheks closely. 5. History of coronary artery disease. 6. Deep venous thrombosis and gastrointestinal prophylaxis. 7. Code status, full code. 8. Surrogate decision maker is his son, Stefan. DISPOSITION: Pending further workup and clinical findings along with the patient progress. Job ID: [id number]
[2019-05-05 15:04] VITALS: BMI 24.8
--- NOTE | 2019-05-05 17:36 | PDOC.EVN ---
Event Note - Event Note Event Note: Spoke with Dr. Yelena Figueredo at [facility] in [place]. She will accept the patient in transfer.
[2019-05-05] MEDS ORDERED: Famotidine 20 MG TAB PO SCH (21:00)
[2019-05-05 21:23] VITALS: BP 140/73; TEMP 97.9
--- NOTE | 2019-05-05 22:11 | CON ---
DATE OF CONSULTATION: HISTORY OF PRESENT ILLNESS: Ronaldo De Guzman is a pleasant 84-year-old white male, who I initially evaluated in the office on July 03, 2018. He had a pacemaker placed in [place] due to bradycardia on May 20, 2018. Prior to that, he had several falls, but no true loss of consciousness. The pacemaker was checked in the office and it was found that with atrial pacing, the ventricle was paced. Chest x-ray was performed, which showed that the atrial lead had become dislodged and it was in the ventricle. On July 11, 2018, he underwent repositioning of the atrial lead. The atrial lead moved freely at that time and was repositioned. He was somewhat hypotensive after the procedure, was given intravenous fluids and his blood pressure medications were held. Echo did not reveal any significant pericardial effusion. The next day his pressures were back to normal and he was discharged. After he went home, he began to develop bilateral lower extremity edema, went to his primary physician, was told to go to the emergency room. He denied any chest pain, shortness of breath, or palpitations. He had elevated creatinine over his baseline, which increased from 1.40 to 2.15. He was gently hydrated. Lasix, metformin, and lisinopril/hydrochlorothiazide were held. Creatinine improved from 2.28 to 1.84. Lasix dose was reduced from 40 to 20 mg. He was again admitted in August 2014 after he had a fall and hit his head. The family found him on the floor. The patient did not recall the incident. He was found to have enterococcal bacteremia from urinary tract infection. His pacemaker was functioning normally. Ejection fraction was 40-45 percent with evidence of diastolic dysfunction. He had 1 hospitalization in September 2018 for heart failure, combined systolic and diastolic. He was last seen in the office on March 04, 2009 without any specific complaints. His pacemaker continued to function normally at that time. He then noted on May 02 that the lateral surface of his pacemaker was sticking through the skin. He denies any pain, fever or chills. He ultimately came to the emergency room today for evaluation of this. He denies any recent chest discomfort. Overall, his breathing has been doing well and he has not had any peripheral edema. PAST MEDICAL HISTORY: Hypertension, diabetes, history of myocardial infarction prior to when I started to see him, prostate cancer, dementia, and moderate aortic stenosis. PAST SURGICAL HISTORY: Appendectomy, pacemaker placement, repositioning of the atrial lead and tonsillectomy. MEDICATIONS: 1. Aspirin 81 daily. 2. Atorvastatin 40 at bedtime. 3. Carvedilol 6.25 b.i.d. 4. Furosemide 20 daily. 5. Glimepiride 2.5 daily. 6. Isosorbide mononitrate 30 daily. 7. Lisinopril 5 mg daily. 8. Prednisone 2.5 mg daily. ALLERGIES: PENICILLIN. SOCIAL HISTORY: He is a former smoker. He does not drink. REVIEW OF SYSTEMS: A 12-point review of systems is unremarkable. PHYSICAL EXAMINATION: VITAL SIGNS: Blood pressure 140/68, pulse 91. HEENT: [place]. NECK: Supple. CHEST: Clear. CARDIAC: S1 and S2 normal without any S3 or S4. There is a 1/2 systolic murmur in the aortic area. ABDOMEN: Normal bowel sounds without tenderness organomegaly. EXTREMITIES: Revealed no clubbing, cyanosis, or edema. NEUROLOGIC: Grossly intact except for mild dementia. SKIN: Shows the lateral edge of the pacemaker has eroded through his skin. There was no pus or erythema present. LABORATORY DATA: EKG does not appear to be on the chart. Carelink express was performed and atrial thresholds 1.00 V, ventricular threshold 0.75 V, ventricular pacing is less than 0.1%, atrial pacing is 2.2%, measured P-wave 2.6, measured R-wave 7.4. Hemoglobin 12.2, hematocrit 37.5, white count 8500, platelets 133, 000. Sodium 140, potassium 4.3, chloride 100, carbon dioxide 31, BUN 59, creatinine 2.84. IMPRESSION: 1. Erosion of pacemaker generator through skin. 2. Status post pacemaker placement in [place]. This was placed for episodes of falling, but no true syncope. We did reposition the atrial lead in June 2018. Pacemaker continues to function well. 3. Moderate aortic stenosis on last echo. 4. Former smoker. 5. Hypertension. 6. Hypercholesterolemia. 7. Diabetes. 8. Prostate cancer. 9. Dementia. PLAN: Situation discussed with the patient and his son. With the generator eroding through the skin, this pacing system needs to be removed. Another system will need to be placed on the right side. My main concern would be, if the leads could not be adequately removed, then he would need to be transferred for lead extraction. Discussing with the patient's son, we all agree that it would probably be best to start this procedure somewhere lead extraction can be performed, if needed. Electrophysiology in [place] will be contacted. Job ID: [id number]
[2019-05-06] MEDS ORDERED: Enoxaparin Sodium 30 MG/0.3 ML SYRINGE SC SCH (09:00)
== END 2019-05-05 20:50 | disposition short-term general hospital (02) | DRG 310 ==
LOC: ERS 09:46 → ERHOLD 12:13 → 2NO 14:54
PROVIDERS: ADMIT Internal Medicine; ATTEND Internal Medicine
DX: T82.191A Other mechanical complication of cardiac pulse generator (battery), initial encounter (principal); Y83.1 Surgical operation with implant of artificial internal device as the cause of abnormal reaction of the patient, or of later complication, without mention of misadventure at the time of the procedure; I12.9 Hypertensive chronic kidney disease with stage 1 through stage 4 chronic kidney disease, or unspecified chronic kidney disease; E11.22 Type 2 diabetes mellitus with diabetic chronic kidney disease; N18.9 Chronic kidney disease, unspecified; I25.10 Atherosclerotic heart disease of native coronary artery without angina pectoris; E78.5 Hyperlipidemia, unspecified; F32.9 Major depressive disorder, single episode, unspecified; E78.00 Pure hypercholesterolemia, unspecified; F03.90 Unspecified dementia, unspecified severity, without behavioral disturbance, psychotic disturbance, mood disturbance, and anxiety; I35.0 Nonrheumatic aortic (valve) stenosis; Z85.46 Personal history of malignant neoplasm of prostate; Z87.891 Personal history of nicotine dependence; Z88.0 Allergy status to penicillin; I25.2 Old myocardial infarction
CPT/HCPCS: 36415; 36416; 80053; 83605; 85025; 87040; 99285

== ENCOUNTER 2019-07-08 18:45 | Inpatient (IN) | payer MEDICARE, OTHER ==
--- NOTE | 2019-07-08 19:17 | RAD ---
TWO VIEW CHEST: 07/08/19 HISTORY: Weakness and shortness of breath. COMPARISON: 07/04/18 and 11/21/18 films. Cardiomegaly with mild vascular congestion again noted, similar to prior studies. No focal infiltrate or consolidation. Poor inspiration. Pacemaker leads appear adequately positioned. IMPRESSION: Cardiomegaly and mild vascular congestion. POS: OFF
[2019-07-08 19:45] LABS: #Basophils 0.1 thou/uL (0.0-0.2); #Eosinphils 1.6 thou/uL (0.0-0.7); #Lymphocytes 1.3 thou/uL (1.20-3.40); #Monocytes 0.6 thou/uL (0.11-0.59); #Neutrophils 4.5 thou/uL (1.40-6.50); %Basophils 1.6 % (0.0-1.0); %Eosinophils 19.6 % (0.0-10.0); %Lymphocytes 16.5 % (21.0-51.0); %Monocytes 7.2 % (0.0-10.0); %Neutrophils 55.1 % (42.0-75.0); Hemoglobin 12.7 g/dL (14.0-18.0); Mean Corpuscular Hemoglobin 32.1 pg (27.0-31.0); Mean Corpuscular Volume 94.5 fL (78.0-98.0); Mean Platelet Volume 7.9 fL (7.4-10.4); Platelet Count 174 thou/uL (130-400); RBC Distribution Width 13.8 % (11.5-14.5); Red Blood Cell (RBC) Count 3.95 mill/uL (4.70-6.10); White Blood Cell (WBC) Count 8.1 thou/uL (4.8-10.8)
[2019-07-08 20:06] LABS: ALT (SGPT) 7 U/L (8-55); AST (SGOT) 14 U/L (5-34); Albumin 4.3 g/dL (3.4-4.8); Alkaline Phosphatase 88 U/L (40-110); Anion Gap 13 mmol/L (10-20); BUN (Urea Nitrogen) 45 mg/dL (8.4-25.7); Bilirubin, Total 0.7 mg/dL (0.2-1.2); Calc. Creatinine Clearance 0 mL/min (70-130); Carbon Dioxide 28 mmol/L (23-31); Chloride 102 mmol/L (98-107); Estimated GFR-MDRD 22; Globulin 3.3 g/dL (2.4-3.5); Glucose 134 mg/dL (83-110); Potassium 4.8 mmol/L (3.5-5.1); Protein, Total 7.6 g/dL (5.8-8.1); Sodium 138 mmol/L (136-145)
[2019-07-08 20:14] LABS: Calcium 13.8 mg/dL (7.8-10.44)
[2019-07-08 20:28] LABS: CKMB 2.8 ng/mL (0-6.6)
[2019-07-08 20:32] LABS: Phosphorus 4.3 mg/dL (2.3-4.7)
[2019-07-08] MEDS ORDERED: Aspirin Chewable 81 MG TAB ONE (20:36)
[2019-07-08] MEDS ORDERED: Calcitonin,Salmon,Synthetic 200 UNITS/ML IM SCH (21:00)
[2019-07-08] MEDS ORDERED: hydrOXYzine Pamoate 25 mg Capsule ONE (21:10)
[2019-07-08] MEDS ORDERED: Furosemide 40 MG/4 ML VIAL ONE (21:10)
[2019-07-08] MEDS ORDERED: Bisacodyl 5 MG TAB PO PRN (21:19)
[2019-07-08] MEDS ORDERED: Ondansetron PF 4 MG/2 ML Vial IVP PRN (21:19)
[2019-07-08] MEDS ORDERED: Senokot S 8.6-50 MG TAB PO PRN (21:19)
[2019-07-08] MEDS ORDERED: Ondansetron PF 4 MG/2 ML Vial ONE (21:42)
[2019-07-08] MEDS ORDERED: Furosemide 100 MG/10 ML VIAL SLOW IVP SCH (22:00)
--- NOTE | 2019-07-08 22:34 | HP ---
PRESENTING COMPLAINT: Weakness and shortness of breath. HISTORY OF PRESENT ILLNESS: Mr. Gab Higgins is an 84-year-old male with a past medical history of hypertension, diabetes mellitus, hyperlipidemia, multiple joint osteoarthritis, CKD stage 3 previously, but recent subacute decline to stage IV, who presented to the hospital today because of increasing weakness since the last 1 week associated with increasing shortness of breath on exertion. The patient admits to fatigue. He also admits to dry mouth and increased p.o. fluid intake with increased thirst. He admits to polyuria and is currently having urine frequency of about every 1 to 2 hours now. He admits to mild constipation, but denies any abdominal pain or cramps. He was seen by his Sheriffs Officer 1 week ago and had his furosemide changed from 40 mg daily to every other day as well as he was started on Tums for reported elevated phosphorus. He has been taking 2 Tums with each meal since the last 1 week. On presentation in the ED today, the patient was noted with a calcium level of 13.8. His last echo from 7 months ago shows EF of 40% with diastolic dysfunction. PAST MEDICAL HISTORY: Hypertension, diabetes mellitus, history of combined systolic and diastolic CHF, history of sinus bradycardia requiring a pacemaker placement 1 year ago, history of chronic kidney disease with previous baseline of 1.7 six months ago, but decreased to creatinine of 2.8 since the last 2 months, history of recurrent CHF exacerbation. History of CAD in the past and a history of prostate cancer, status post radiation. Recent pacemaker pocket infection, treated with antibiotics and new pacemaker insertion on right side 1 month ago. PAST SURGICAL HISTORY: Includes post appendectomy, tonsillectomy, and AICD placement. REVIEW OF SYSTEMS: All system reviewed x14 were negative except as mentioned above. ALLERGIES: PENICILLIN. SOCIAL HISTORY: The patient is a former smoker. Quit over 12 years ago. No history of alcohol or illicit drug use. He resides in the community with the family. He is normally functional at baseline. HOME MEDICATIONS: Include; 1. Aspirin. 2. Coreg. 3. Recently added glipizide. 4. Furosemide 40 daily. 5. Recently discontinued lisinopril. 6. Isosorbide. PHYSICAL EXAMINATION: VITAL SIGNS: Currently, blood pressure of 166/102, pulse of 79, respiratory rate of 18, O2 saturation 95% on room air. GENERAL: Elderly male, average built, appears fatigued. HEENT: Head is atraumatic, normocephalic. Mild periorbital edema noted. Moist oral mucosa. NECK: No JVD. No carotid bruit. RESPIRATORY: Bibasilar crepitations, but no wheeze or rhonchi. CARDIOVASCULAR: S1, S2. Right upper chest wall had pacemaker in-situ. Scar over the left upper chest wall. ABDOMEN: Full, soft, nontender. No suprapubic fullness. Bowel sounds positive. No CVA tenderness. EXTREMITIES: 1 to 2+ pedal edema bilaterally. No calf tenderness. Negative Homans sign. NEUROLOGIC: The patient is alert, conversant, slightly slowed speech flow, but intact. No neurological focal motor deficit. LABORATORY DATA: WBC 8.1, hemoglobin 12.7, platelet 174, neutrophils 55%. No bands. Potassium 4.8, bicarb 28, BUN 45, creatinine 2.8, calcium 13.8, phosphorus 4.3. AST and alkaline phosphatase normal. Troponin 0.25. BNP of 749. Glucose 134. Chest x-ray shows mild pulmonary congestive changes. IMPRESSION: 1. Acute combined systolic congestive heart failure exacerbation-likely due to increased thirst and fluid intake. 2. Hypercalcemia with symptoms. 3. Subacute renal failure on baseline chronic kidney disease, stage 4. 4. Hypertension-uncontrolled. 5. Diabetes mellitus. PLAN: We will admit patient to inpatient status to manage the patient for the followin. Acute CHF exacerbation. We will restart furosemide. We will increase to 40 mg IV t.i.d. for now. Follow daily weights. Monitor intake and output. If volume depletion and see elevated calcium, the patient might need some normal saline. Lasix will also help in fact to control hypercalcemia. The patient might need to restart home dose of 40 mg after acute illness resolved. The patient advised to do daily weight monitoring at home since recurrent CHF exacerbation on admission in the last preceding several months. 2. Hypercalcemia likely due to recent Tums intake in the setting of reduced furosemide dosage. We discontinued calcium tablets and Tums. Follow with increased diuresis. We will also start calcitonin intranasally b.i.d. We will give one dose of zoledronic acid x1 today. We will obtain PTH, serum phosphorus, and vitamin D levels. Follow with Nephrology. 3. Hypertension, relatively uncontrolled. Resume home regimen. May need increase in isosorbide dosage. 4. Diabetes mellitus. The patient on glyburide. He reports low glucose of 80s to 90s in a.m. May be beneficial for patient to switch to Empagliflozin (Jardiance) given subacute worsening of renal function. 5. Deep venous thrombosis prophylaxis, subcutaneous Lovenox. 6. Weakness. We will consult PT and OT. 7. Advanced directive. The patient wishes to be full code. TIME SPENT: Total time spent in review of record, discussion with patient and evaluation, greater than 60 minutes. Family including son and [id number] at bedside discussed with. We will monitor troponin levels though likely due to demand-mediated ischemia at this time. Job ID: [id number]
[2019-07-08 22:57] LABS: Troponin I 0.177 ng/mL (< 0.028)
[2019-07-08] MEDS ORDERED: Zoledronic Acid 4 MG in Sodium Chloride 0.9% 100 ML IVPB SCH (23:00)
[2019-07-09 02:03] LABS: Troponin I 0.145 ng/mL (< 0.028)
[2019-07-09 04:50] LABS: #Basophils 0.1 thou/uL (0.0-0.2); #Eosinphils 1.5 thou/uL (0.0-0.7); #Lymphocytes 1.3 thou/uL (1.20-3.40); #Monocytes 0.8 thou/uL (0.11-0.59); %Basophils 0.8 % (0.0-1.0); %Lymphocytes 12.5 % (21.0-51.0); %Monocytes 7.1 % (0.0-10.0); %Neutrophils 65.5 % (42.0-75.0); Hemoglobin 13.3 g/dL (14.0-18.0); Mean Corpuscular Hemoglobin 32.1 pg (27.0-31.0); Mean Corpuscular Volume 94.4 fL (78.0-98.0); Mean Platelet Volume 8.1 fL (7.4-10.4); Platelet Count 176 thou/uL (130-400); RBC Distribution Width 13.8 % (11.5-14.5); Red Blood Cell (RBC) Count 4.16 mill/uL (4.70-6.10); White Blood Cell (WBC) Count 10.6 thou/uL (4.8-10.8)
[2019-07-09 05:02] LABS: Albumin 4.3 g/dL (3.4-4.8); Anion Gap 19 mmol/L (10-20); BUN (Urea Nitrogen) 41 mg/dL (8.4-25.7); BUN/Creatinine Ratio 15.77; Calc. Creatinine Clearance 21 mL/min (70-130); Carbon Dioxide 24 mmol/L (23-31); Chloride 101 mmol/L (98-107); Estimated GFR-MDRD 24; Glucose 152 mg/dL (83-110); Magnesium 1.3 mg/dL (1.6-2.6); Phosphorus 4.5 mg/dL (2.3-4.7); Potassium 4.9 mmol/L (3.5-5.1); Sodium 139 mmol/L (136-145)
[2019-07-09 05:06] LABS: Calcium 14.2 mg/dL (7.8-10.44)
[2019-07-09 05:07] LABS: Troponin I 0.557 ng/mL (< 0.028)
[2019-07-09] MEDS: Furosemide 40 MG/4 ML VIAL SLOW IVP SCH ×2 (05:35→14:03)
[2019-07-09] MEDS ORDERED: glyBURIDE 2.5 MG TAB PO SCH (08:00)
[2019-07-09] MEDS ORDERED: Calcitonin,Salmon,Synthetic 200 Units 3.7 ML PUMP R NARE SCH (09:00)
[2019-07-09] MEDS: Famotidine 20 MG TAB PO SCH (09:35)
[2019-07-09] MEDS: Aspirin 81 mg Enteric Coated Tablet PO SCH (09:35)
[2019-07-09] MEDS: Isosorbide Mononitrate (ER) 30 MG TAB PO SCH (09:39)
[2019-07-09] MEDS: Enoxaparin Sodium 30 MG/0.3 ML SYRINGE SC SCH (09:40)
[2019-07-09] MEDS: Carvedilol 6.25 MG TAB PO SCH ×2 (09:40→17:36)
[2019-07-09] MEDS: HYDROcodone/Acetaminophen 5/325 mg Tablet PO PRN (11:19)
[2019-07-09] MEDS: Acetaminophen 325 MG TAB PO PRN ×2 (14:02→18:37)
[2019-07-09 14:24] LABS: Anion Gap 15 mmol/L (10-20); BUN (Urea Nitrogen) 43 mg/dL (8.4-25.7); Calc. Creatinine Clearance 20 mL/min (70-130); Carbon Dioxide 24 mmol/L (23-31); Chloride 102 mmol/L (98-107); Estimated GFR-MDRD 23; Glucose 128 mg/dL (83-110); Potassium 5.1 mmol/L (3.5-5.1); Sodium 136 mmol/L (136-145)
[2019-07-09 14:34] LABS: Calcium 12.8 mg/dL (7.8-10.44)
--- NOTE | 2019-07-09 15:49 | PDOC.HOSPP ---
- Subjective Encounter Date: 07/09/19 Encounter Time: 15:47 Subjective: Mr. De Guzman was seen today in follow-up of hypercalcemia and CHF exacerbation. He is still very weak. His son is at bedside and tells me he was unable to stand with PT. - Objective Vital Signs & Weight: Vital Signs (12 hours) Temp Pulse Pulse Pulse Resp BP BP 07/09/19 11:18 97.6 F 106 H 16 07/09/19 10:48 113/84 07/09/19 09:40 152/104 H 07/09/19 08:47 108 H 115 H 136/93 H 07/09/19 07:15 97.9 F 108 H 16 07/09/19 04:00 97.7 F 115 H 20 BP BP Pulse Ox 07/09/19 11:18 117/79 94 L 07/09/19 10:48 117/79 07/09/19 09:40 07/09/19 08:47 152/104 H 07/09/19 07:15 136/93 H 92 L 07/09/19 04:00 136/91 H 94 L Weight Weight 158 lb 8 oz I&O: 07/08/19 07/09/19 07/10/19 06:59 06:59 06:59 Intake Total 640 Output Total 600 Balance 40 Result Diagrams: 07/09/19 04:25 07/09/19 13:58 Additional Labs: Accuchecks 07/09/19 07/09/19 13:06 09:38 POC Glucose 134 H 167 H Hospitalist ROS - Medication Medications: Active Medications Generic Name Dose Route Start Last Admin Trade Name Freq PRN Reason Stop Dose Admin Acetaminophen 650 mg 07/08/19 21:19 07/09/19 14:02 Tylenol PO 650 mg Q4H PRN Administration Headache/Fever/Mild Pain (1-3) Hydrocodone Bitart/Acetaminophen 1 tab 07/08/19 21:19 07/09/19 11:19 [place] 5/325 PO 1 tab Q4H PRN Administration Moderate Pain (4-6) Aspirin 81 mg 07/09/19 09:00 07/09/19 09:35 Ecotrin PO 81 mg DAILY OTILIA Administration Calcitonin [place] 1 sprays 07/09/19 09:00 07/09/19 10:15 Miacalcin R NARE 1 spr Q2D OTILIA Administration Carvedilol 6.25 mg 07/09/19 08:00 07/09/19 09:40 Coreg PO 6.25 mg BID-WM OTILIA Administration Enoxaparin Sodium 30 mg 07/09/19 09:00 07/09/19 09:40 Lovenox SC 30 mg 0900 OTILIA Administration Famotidine 20 mg 07/09/19 09:00 07/09/19 09:35 Pepcid PO 20 mg DAILY OTILIA Administration Furosemide 40 mg 07/09/19 06:00 07/09/19 14:03 Lasix SLOW IVP 40 mg 0600,1400 OTILIA Administration Isosorbide Mononitrate 30 mg 07/09/19 09:00 07/09/19 09:39 Imdur Er PO 30 mg DAILY OTILIA Administration Sodium Chloride 10 ml 07/09/19 00:59 07/09/19 05:35 Flush - Normal Saline IVF 10 ml PRN PRN Administration Saline Flush - Exam Eye: PERRL Respiratory: CTAB, no wheezes, no rales, no ronchi, normal chest expansion, no tachypnea, normal percussion Gastrointestinal: soft, non-tender, non-distended, normal bowel sounds, no palpable masses Hosp A/P (1) CAD (coronary artery disease) Code(s): I25.10 - ATHSCL HEART DISEASE OF [place] CORONARY ARTERY W/O ANG PCTRS Status: Chronic (2) DM2 (diabetes mellitus, type 2) Status: Chronic (3) HTN (hypertension) Code(s): I10 - ESSENTIAL (PRIMARY) HYPERTENSION Status: Chronic (4) Chronic kidney disease, stage 4 (severe) Code(s): N18.4 - CHRONIC KIDNEY DISEASE, STAGE 4 (SEVERE) Status: Chronic - Plan * Hypercalcemia- improving with Calcitonin, and Zaledronate * Await further recommendations from Nephrology * HTN- labile- but trending down * DM- blood glucose is stable * Chronic combined systolic and diastolic heart failure- will consult Cardiology to aid in management. He normally sees Dr. Clarke
--- NOTE | 2019-07-09 17:44 | CON ---
DATE OF CONSULTATION: REASON FOR CONSULTATION: Acute kidney injury, congestive heart failure, and hypercalcemia. HISTORY OF PRESENT ILLNESS: An 84-year-old gentleman presented to the hospital with shortness of breath and feet and leg swelling. The patient was noted to have a calcium of 13 and a creatinine of 2.6. I was consulted. The patient denies any nausea, vomiting, or chest pain. PAST MEDICAL HISTORY: Significant for hypertension, CKD, anemia, coronary artery disease, history of appendectomy, tonsillectomy, and ICD placement. ALLERGIES: REVIEWED. HOME MEDICATIONS: List reviewed. HOSPITAL MEDICATIONS: List reviewed. REVIEW OF SYSTEMS: 15-point review of system was performed negative except for positives noted above. GENERAL: HEAD: NECK: No swelling or lumps. NOSE: No epistaxis or discharge. EYES: No diplopia or pain. RESPIRATORY: CARDIOVASCULAR: GASTROINTESTINAL: /LINE STAKER: MUSCULOSKELETAL: No joint pain. NEUROPSYCHIATIC SYSTEMS: No suicidal ideation. No ideation. SKIN: Denies any rash or ulcer. CONSTITUTIONAL: No fever or chills. SOCIAL: No alcohol or drug use. PHYSICAL EXAMINATION: CONSTITUTIONAL: The patient is awake and alert. VITAL SIGNS: Afebrile, pulse 75, breathing 16, and blood pressure 117/66. GENERAL APPEARANCE AND MENTAL STATUS: Fair. HEAD/NECK: Normocephalic. Atraumatic. EYES: EOMI. No deformity. EARS: Clear. No ulcers. NOSE: Intact. No lesions. MOUTH: Clear. No discharge. THROAT: Clear. No exudate. LUNGS: Clear. No crackles. CARDIAC: S1, S2. No rub. ABDOMEN: Benign. Bowel sounds positive. GENITALIA/RECTUM: Avina absent. BACK/EXTREMITIES: Edema 0+. NEUROLOGICAL: Alert and motor intact. SKIN: LYMPHATICS: LABORATORY DATA: Labs reviewed. ASSESSMENT AND PLAN: 1. Acute kidney injury, chronic kidney disease most likely due to cardiorenal syndrome, continue diuresis. 2. Hypercalcemia and excessive potassium intake and low PTH. Avoid calcium products and no urgent indication for dialysis. The calcium does not improve we will consider renal replacement therapy. 3. Hypomagnesemia. We would recommend magnesium replacement. Job ID: [id number]
[2019-07-09 18:16] LABS: Bacteria/HPF None Seen HPF (None Seen); Bilirubin Negative (Negative); Blood, Urine 1+ (Negative); Clarity Clear (Clear); Glucose, Urine (Dipstick) Normal (Negative); Leukocyte Negative Leu/uL (Negative); Nitrite Negative (Negative); Protein, Urine (Dipstick) Negative (Neg-Trace); RBC/HPF 0-3 HPF (0-3); Squamous Epithelial None Seen HPF (0-3); Urobilinogen Normal mg/dL (Less than 2); WBC/HPF 0-3 HPF (0-3)
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
[2019-07-09 18:23] LABS: Urine Culture Reflex No No
[2019-07-10 04:20] LABS: #Basophils 0.1 thou/uL (0.0-0.2); #Eosinphils 0.3 thou/uL (0.0-0.7); #Lymphocytes 0.6 thou/uL (1.20-3.40); #Monocytes 0.6 thou/uL (0.11-0.59); #Neutrophils 6.2 thou/uL (1.40-6.50); %Basophils 0.8 % (0.0-1.0); %Eosinophils 4.5 % (0.0-10.0); %Lymphocytes 7.8 % (21.0-51.0); %Monocytes 7.4 % (0.0-10.0); %Neutrophils 79.6 % (42.0-75.0); Hemoglobin 12.8 g/dL (14.0-18.0); Mean Corpuscular Hemoglobin 32.2 pg (27.0-31.0); Mean Corpuscular Volume 94.8 fL (78.0-98.0); Platelet Count 135 thou/uL (130-400); RBC Distribution Width 13.8 % (11.5-14.5); Red Blood Cell (RBC) Count 3.98 mill/uL (4.70-6.10); White Blood Cell (WBC) Count 7.8 thou/uL (4.8-10.8)
[2019-07-10 04:42] LABS: Anion Gap 17 mmol/L (10-20); BUN (Urea Nitrogen) 54 mg/dL (8.4-25.7); Calc. Creatinine Clearance 16 mL/min (70-130); Calcium 11.9 mg/dL (7.8-10.44); Carbon Dioxide 27 mmol/L (23-31); Chloride 100 mmol/L (98-107); Estimated GFR-MDRD 17; Glucose 129 mg/dL (83-110); Potassium 4.8 mmol/L (3.5-5.1); Sodium 139 mmol/L (136-145)
[2019-07-10] MEDS: Furosemide 40 MG/4 ML VIAL SLOW IVP SCH (06:39)
[2019-07-10] MEDS ORDERED: Calcitonin,Salmon,Synthetic 200 Units 3.7 ML PUMP L NARE SCH (09:00)
[2019-07-10] MEDS: Aspirin 81 mg Enteric Coated Tablet PO SCH (09:14)
[2019-07-10] MEDS: Isosorbide Mononitrate (ER) 30 MG TAB PO SCH (09:15)
[2019-07-10] MEDS: glipiZIDE 5 MG TAB PO SCH (09:15)
[2019-07-10] MEDS: Carvedilol 6.25 MG TAB PO SCH ×2 (09:16→17:45)
[2019-07-10] MEDS: Enoxaparin Sodium 30 MG/0.3 ML SYRINGE SC SCH (09:17)
[2019-07-10] MEDS: Famotidine 20 MG TAB PO SCH (09:17)
--- NOTE | 2019-07-10 11:57 | PRG ---
DATE OF SERVICE: 07/10/2019 SUBJECTIVE: An 84-year-old gentleman, being seen for acute kidney injury. The patient denies any nausea, vomiting, or chest pain. The patient is very somnolent. OBJECTIVE: See above. Awake, alert, in no acute distress. CONSTITUTIONAL: The patient is resting. VITAL SIGNS: Afebrile, pulse 115, breathing 16, blood pressure 133/90. GENERAL APPEARANCE AND MENTAL STATUS: Fair. HEAD/NECK: Normocephalic. Atraumatic. EYES: EOMI. No deformity. EARS: Clear. No ulcers. NOSE: Intact. No lesions. MOUTH: Clear. No discharge. THROAT: Clear. No exudate. LUNGS: Clear. No crackles. CARDIAC: S1, S2. No rub. ABDOMEN: Benign. Bowel sounds positive. GENITALIA/RECTUM: Avina absent. BACK/EXTREMITIES: Edema 0+. NEUROLOGICAL: Alert and motor intact. SKIN: LYMPHATICS: LABORATORY DATA: Labs show hemoglobin 12.8, creatinine 3.39. ASSESSMENT AND PLAN: 1. Acute kidney injury with chronic kidney disease due to cardiorenal syndrome. Hold Lasix. Start normal saline at 50 per hour. 2. Hypercalcemia, improved. 3. Medication based on GFR appropriate. No indication for dialysis at this time. Job ID: [id number]
[2019-07-10] MEDS ORDERED: Sodium Chloride 0.9% 1,000 ML IV SCH (12:00)
--- NOTE | 2019-07-10 12:15 | PDOC.HOSPP ---
- Subjective Encounter Date: 07/10/19 Encounter Time: 12:14 Subjective: Mr. De Guzman was seen today in follow-up of hypercalcemia. He is not every responsive. - Objective Vital Signs & Weight: Vital Signs (12 hours) Temp Pulse Resp BP BP Pulse Ox 07/10/19 11:55 99.0 F 100 20 97/65 98 07/10/19 09:16 133/93 H 07/10/19 08:00 98.5 F 112 H 18 133/93 H 92 L 07/10/19 04:00 98.7 F 115 H 20 138/95 H 93 L Weight Weight 146 lb 9.6 oz I&O: 07/09/19 07/10/19 07/11/19 06:59 06:59 06:59 Intake Total 640 612 Output Total 600 300 Balance 40 312 Result Diagrams: 07/10/19 04:02 07/10/19 04:02 Additional Labs: Accuchecks 07/09/19 07/09/19 20:38 13:06 POC Glucose 156 H 134 H Hospitalist ROS - Medication Medications: Active Medications Generic Name Dose Route Start Last Admin Trade Name Freq PRN Reason Stop Dose Admin Acetaminophen 650 mg 07/08/19 21:19 07/09/19 18:37 Tylenol PO 650 mg Q4H PRN Administration Headache/Fever/Mild Pain (1-3) Hydrocodone Bitart/Acetaminophen 1 tab 07/08/19 21:19 07/09/19 11:19 [place] 5/325 PO 1 tab Q4H PRN Administration Moderate Pain (4-6) Aspirin 81 mg 07/09/19 09:00 07/10/19 09:14 Ecotrin PO 81 mg DAILY OTILIA Administration Carvedilol 6.25 mg 07/09/19 08:00 07/10/19 09:16 Coreg PO 6.25 mg BID-WM OTILIA Administration Enoxaparin Sodium 30 mg 07/09/19 09:00 07/10/19 09:17 Lovenox SC 30 mg 0900 OTILIA Administration Famotidine 20 mg 07/09/19 09:00 07/10/19 09:17 Pepcid PO 20 mg DAILY OTILIA Administration Glipizide 2.5 mg 07/10/19 07:30 07/10/19 09:15 Glucotrol PO 2.5 mg DAILY-AC OTILIA Administration Isosorbide Mononitrate 30 mg 07/09/19 09:00 07/10/19 09:15 Imdur Er PO 30 mg DAILY OTILIA Administration Sodium Chloride 10 ml 07/09/19 00:59 07/09/19 05:35 Flush - Normal Saline IVF 10 ml PRN PRN Administration Saline Flush - Exam Eye: PERRL Heart: RRR, no murmur, no gallops, no rubs, normal peripheral pulses Respiratory: CTAB, no wheezes, no rales, no ronchi, normal chest expansion, no tachypnea, normal percussion Gastrointestinal: soft, non-tender, non-distended, normal bowel sounds, no palpable masses, no hepatomegaly Extremities: no cyanosis, 1+ LE edema Hosp A/P (1) CAD (coronary artery disease) Code(s): I25.10 - ATHSCL HEART DISEASE OF [place] CORONARY ARTERY W/O ANG PCTRS Status: Chronic (2) DM2 (diabetes mellitus, type 2) Status: Chronic (3) HTN (hypertension) Code(s): I10 - ESSENTIAL (PRIMARY) HYPERTENSION Status: Chronic (4) Chronic kidney disease, stage 4 (severe) Code(s): N18.4 - CHRONIC KIDNEY DISEASE, STAGE 4 (SEVERE) Status: Chronic - Plan * Hypercalcemia- improving with Calcitonin, and Zaledronate * HTN- labile- but trending down * He has not eaten anything in 3 days. He is more or less obtunded * I spoke with his son, and he says his father has been saying he wants to go see his , who is . He feels his father has given up. He would like to consider Hospice care for his father. Will place the consult.
[2019-07-11] MEDS: glipiZIDE 5 MG TAB PO SCH (08:59)
[2019-07-11] MEDS: Enoxaparin Sodium 30 MG/0.3 ML SYRINGE SC SCH (08:59)
[2019-07-11] MEDS: Aspirin 81 mg Enteric Coated Tablet PO SCH (09:00)
[2019-07-11] MEDS: Famotidine 20 MG TAB PO SCH (09:01)
[2019-07-11] MEDS: Isosorbide Mononitrate (ER) 30 MG TAB PO SCH (09:01)
[2019-07-11] MEDS: Acetaminophen 325 MG TAB PO PRN ×3 (09:01→21:44)
--- NOTE | 2019-07-11 09:58 | PRG ---
DATE OF SERVICE: 07/11/2019 SUBJECTIVE: An 84-year-old gentleman, being seen for acute kidney injury. The patient is alert and a bit awake. The patient denies any nausea, vomiting, or chest pain. OBJECTIVE: See above. Awake, alert, in no acute distress. VITAL SIGNS: Afebrile, pulse 84, breathing 16, blood pressure 135/60. GENERAL APPEARANCE AND MENTAL STATUS: Fair. HEAD/NECK: Normocephalic. Atraumatic. EYES: EOMI. No deformity. EARS: Clear. No ulcers. NOSE: Intact. No lesions. MOUTH: Clear. No discharge. THROAT: Clear. No exudate. LUNGS: Clear. No crackles. CARDIAC: S1, S2. No rub. ABDOMEN: Benign. Bowel sounds positive. GENITALIA/RECTUM: Avina absent. BACK/EXTREMITIES: Edema 0+. NEUROLOGICAL: Alert and motor intact. SKIN: LYMPHATICS: LABORATORY DATA: Reviewed. ASSESSMENT AND PLAN: 1. Chronic kidney disease stage 4 with acute kidney injury. Labs are pending. 2. Hypertension, stable. 3. Anemia. 4. Hypercalcemia, labs are pending. 5. Continue gentle hydration . Job ID: [id number]
[2019-07-11 10:00] LABS: Anion Gap 19 mmol/L (10-20); BUN (Urea Nitrogen) 82 mg/dL (8.4-25.7); Calc. Creatinine Clearance 11 mL/min (70-130); Calcium 10.5 mg/dL (7.8-10.44); Carbon Dioxide 22 mmol/L (23-31); Chloride 105 mmol/L (98-107); Estimated GFR-MDRD 12; Glucose 113 mg/dL (83-110); Potassium 5.2 mmol/L (3.5-5.1); Sodium 141 mmol/L (136-145)
--- NOTE | 2019-07-11 11:24 | PDOC.HOSPP ---
- Subjective Encounter Date: 07/11/19 Encounter Time: 11:22 Subjective: Mr. De Guzman was seen today in follow-up of generalized weakness and hypercalcemia. He is more alert this morning. He is able to carry on a conversation. - Objective Vital Signs & Weight: Vital Signs (12 hours) Temp Pulse Resp BP Pulse Ox 07/11/19 08:30 91 135/86 07/11/19 07:37 97.7 F 84 20 96/64 93 L 07/11/19 04:00 97.4 F L 87 24 H 83/60 L 93 L 07/10/19 23:33 97.9 F 88 22 H 106/68 98 Weight Weight 150 lb I&O: 07/10/19 07/11/19 07/12/19 06:59 06:59 06:59 Intake Total 612 470 Output Total 300 200 Balance 312 270 Result Diagrams: 07/10/19 04:02 07/11/19 09:19 Hospitalist ROS - Medication Medications: Active Medications Generic Name Dose Route Start Last Admin Trade Name Freq PRN Reason Stop Dose Admin Acetaminophen 650 mg 07/08/19 21:19 07/11/19 09:01 Tylenol PO 650 mg Q4H PRN Administration Headache/Fever/Mild Pain (1-3) Hydrocodone Bitart/Acetaminophen 1 tab 07/08/19 21:19 07/09/19 11:19 [place] 5/325 PO 1 tab Q4H PRN Administration Moderate Pain (4-6) Aspirin 81 mg 07/09/19 09:00 07/11/19 09:00 Ecotrin PO 81 mg DAILY OTILIA Administration Enoxaparin Sodium 30 mg 07/09/19 09:00 07/11/19 08:59 Lovenox SC 30 mg 0900 OTILIA Administration Famotidine 20 mg 07/09/19 09:00 07/11/19 09:01 Pepcid PO 20 mg DAILY OTILIA Administration Glipizide 2.5 mg 07/10/19 07:30 07/11/19 08:59 Glucotrol PO 2.5 mg DAILY-AC OTILIA Administration Isosorbide Mononitrate 30 mg 07/09/19 09:00 07/11/19 09:01 Imdur Er PO 30 mg DAILY OTILIA Administration Sodium Chloride 10 ml 07/09/19 00:59 07/09/19 05:35 Flush - Normal Saline IVF 10 ml PRN PRN Administration Saline Flush - Exam Eye: PERRL Heart: RRR, no murmur, no gallops, no rubs, normal peripheral pulses Respiratory: CTAB, no wheezes, no rales, no ronchi, normal chest expansion, no tachypnea Gastrointestinal: soft, non-tender, non-distended, normal bowel sounds, no palpable masses, no hepatomegaly, no splenomegaly Extremities: no cyanosis, 1+ LE edema Hosp A/P (1) CAD (coronary artery disease) Code(s): I25.10 - ATHSCL HEART DISEASE OF [place] CORONARY ARTERY W/O ANG PCTRS Status: Chronic (2) DM2 (diabetes mellitus, type 2) Status: Chronic (3) HTN (hypertension) Code(s): I10 - ESSENTIAL (PRIMARY) HYPERTENSION Status: Chronic (4) Chronic kidney disease, stage 4 (severe) Code(s): N18.4 - CHRONIC KIDNEY DISEASE, STAGE 4 (SEVERE) Status: Chronic - Plan * Hypercalcemia- improved- level is now 10.5 * His sensorium has also improved- will try oral nutrition, and add Nepro supplements * HTN- trending down now- will continue to monitor * Chronic kidney disease- renal function is more or less stable, creatinine slightly increased * Chronic systolic heart failure- compensated * Mild hyperkalemia- will defer to Nephrology * Plan now is to hold off on Hospice, and pursue long term at [facility]
[2019-07-11] MEDS ORDERED: Sodium Chloride 0.9% 250 ML IV SCH ×2 (13:30→14:15)
[2019-07-12] MEDS ORDERED: Sodium Chloride 0.9% 500 ML IV SCH (00:15)
--- NOTE | 2019-07-12 08:10 | PRG ---
DATE OF SERVICE: 07/12/2019 SUBJECTIVE: This 84-year-old gentleman being seen for acute kidney injury patient denies any nausea, vomiting, or chest pain. OBJECTIVE: See above. CONSTITUTIONAL: Awake, alert, in no acute distress. VITAL SIGNS: Afebrile. Pulse 86, breathing 16, blood pressure 112/71. GENERAL APPEARANCE AND MENTAL STATUS: Fair. HEAD/NECK: Normocephalic. Atraumatic. EYES: EOMI. No deformity. EARS: Clear. No ulcers. NOSE: Intact. No lesions. MOUTH: Clear. No discharge. THROAT: Clear. No exudate. LUNGS: Clear. No crackles. CARDIAC: S1, S2. No rub. ABDOMEN: Benign. Bowel sounds positive. GENITALIA/RECTUM: Avina absent. BACK/EXTREMITIES: Edema 0+. NEUROLOGICAL: Alert and motor intact. SKIN: LYMPHATICS: LABORATORY DATA: Reviewed. ASSESSMENT AND PLAN: 1. Acute kidney injury with chronic kidney disease, progressive with rising creatinine. We will continue hydration. 2. Hypertension, stable. 3. Anemia, stable. 4. Hyperkalemia, recommend low-potassium diet and would recommend stopping Lovenox. 5. Overall prognosis remains poor. Job ID: [id number]
[2019-07-12] MEDS: glipiZIDE 5 MG TAB PO SCH (09:23)
[2019-07-12] MEDS: Famotidine 20 MG TAB PO SCH (09:24)
[2019-07-12] MEDS: Aspirin 81 mg Enteric Coated Tablet PO SCH (09:24)
[2019-07-12] MEDS: Acetaminophen 325 MG TAB PO PRN ×2 (09:26→19:43)
[2019-07-12] MEDS: Isosorbide Mononitrate (ER) 30 MG TAB PO SCH (09:26)
[2019-07-12 09:39] LABS: Albumin 3.5 g/dL (3.4-4.8); Anion Gap 15 mmol/L (10-20); BUN (Urea Nitrogen) 90 mg/dL (8.4-25.7); BUN/Creatinine Ratio 21.58; Calc. Creatinine Clearance 13 mL/min (70-130); Calcium 9.1 mg/dL (7.8-10.44); Carbon Dioxide 25 mmol/L (23-31); Chloride 105 mmol/L (98-107); Estimated GFR-MDRD 14; Glucose 136 mg/dL (83-110); Phosphorus 3.2 mg/dL (2.3-4.7); Potassium 3.8 mmol/L (3.5-5.1); Sodium 141 mmol/L (136-145)
[2019-07-12 10:57] LABS: #Basophils 0.1 thou/uL (0.0-0.2); #Eosinphils 1.2 thou/uL (0.0-0.7); #Lymphocytes 1.5 thou/uL (1.20-3.40); #Monocytes 0.9 thou/uL (0.11-0.59); #Neutrophils 3.9 thou/uL (1.40-6.50); %Basophils 1.4 % (0.0-1.0); %Eosinophils 16.2 % (0.0-10.0); %Lymphocytes 19.3 % (21.0-51.0); %Monocytes 11.4 % (0.0-10.0); %Neutrophils 51.7 % (42.0-75.0); Hemoglobin 11.6 g/dL (14.0-18.0); MDiff Complete? YES; Mean Corpuscular Hemoglobin 32.4 pg (27.0-31.0); Mean Corpuscular Volume 95.4 fL (78.0-98.0); Mean Platelet Volume 8.2 fL (7.4-10.4); Platelet Count 111 thou/uL (130-400); Platelet Morphology Comment Appears Decreased; RBC Distribution Width 13.6 % (11.5-14.5); Red Blood Cell (RBC) Count 3.58 mill/uL (4.70-6.10); White Blood Cell (WBC) Count 7.6 thou/uL (4.8-10.8)
[2019-07-12] MEDS: Enoxaparin Sodium 30 MG/0.3 ML SYRINGE SC SCH (11:29)
[2019-07-12] MEDS: Sodium Chloride 0.9% 1,000 ML IV SCH (11:58)
--- NOTE | 2019-07-12 13:50 | ULT ---
EXAM: US Renal Bilateral STANDARD PROVIDED CLINICAL HISTORY: Acute kidney injury COMPARISON: 07/19/2018 FINDINGS: Right kidney measures approximately 8.6 x 5.2 x 3.6 cm and demonstrates no evidence for hydronephrosi s, sonographically apparent calculus or mass. Left kidney measures approximately 9.6 x 4.2 x 4.6 cm and demonstrates no evidence for hydronephrosis , sonographically apparent calculus or mass. Urinary bladder is not visualized. IMPRESSION: No evidence for hydronephrosis.
--- NOTE | 2019-07-12 14:26 | PDOC.HOSPP ---
- Subjective Encounter Date: 07/12/19 Encounter Time: 10:45 Subjective: awake, no sob or chest pain family at bedside has ambulated with PT in hallway eating well, no orthopnea - Objective Vital Signs & Weight: Vital Signs (12 hours) Temp Pulse Pulse Pulse Resp BP BP 07/12/19 11:37 97.5 F L 88 16 07/12/19 09:53 93 90 117/70 98/59 L 07/12/19 08:00 07/12/19 07:48 97.7 F 86 16 07/12/19 04:00 97.6 F 80 16 07/12/19 02:49 BP BP Pulse Ox 07/12/19 11:37 92/62 98 07/12/19 09:53 07/12/19 08:00 97 07/12/19 07:48 112/71 97 07/12/19 04:00 103/72 96 07/12/19 02:49 104/74 Weight Weight 156 lb I&O: 07/11/19 07/12/19 07/13/19 06:59 06:59 06:59 Intake Total 470 1300 Output Total 200 125 Balance 270 1300 -125 Result Diagrams: 07/12/19 09:11 07/12/19 09:11 Additional Labs: Accuchecks 07/11/19 22:51 POC Glucose 89 Hospitalist ROS - Medication Medications: Active Medications Generic Name Dose Route Start Last Admin Trade Name Freq PRN Reason Stop Dose Admin Acetaminophen 650 mg 07/08/19 21:19 07/12/19 09:26 Tylenol PO 650 mg Q4H PRN Administration Headache/Fever/Mild Pain (1-3) Hydrocodone Bitart/Acetaminophen 1 tab 07/08/19 21:19 07/09/19 11:19 [place] 5/325 PO 1 tab Q4H PRN Administration Moderate Pain (4-6) Aspirin 81 mg 07/09/19 09:00 07/12/19 09:24 Ecotrin PO 81 mg DAILY OTILIA Administration Enoxaparin Sodium 30 mg 07/09/19 09:00 07/12/19 11:29 Lovenox SC Not Given 0900 OTILIA Famotidine 20 mg 07/09/19 09:00 07/12/19 09:24 Pepcid PO 20 mg DAILY OTILIA Administration Glipizide 2.5 mg 07/10/19 07:30 07/12/19 09:23 Glucotrol PO 2.5 mg DAILY-AC OTILIA Administration Sodium Chloride 1,000 mls @ 40 mls/hr 07/12/19 11:45 07/12/19 11:58 Normal Saline 0.9% IV 07/13/19 12:44 1,000 mls .Q24H OTILIA Administration Isosorbide Mononitrate 30 mg 07/09/19 09:00 07/12/19 09:26 Imdur Er PO 30 mg DAILY OTILIA Administration Sodium Chloride 10 ml 07/09/19 00:59 07/09/19 05:35 Flush - Normal Saline IVF 10 ml PRN PRN Administration Saline Flush - Exam General Appearance: awake alert Eye: PERRL, anicteric sclera ENT: no oropharyngeal lesions, moist mucosa Neck: supple, no JVD Heart: no murmur, no gallops Respiratory: no wheezes, no rales Gastrointestinal: soft, non-tender, non-distended, normal bowel sounds Extremities: no cyanosis, no edema Neurological: cranial nerve grossly intact, no focal deficits Psychiatric: normal affect, A&O x 3 Hosp A/P (1) CRYSTAL (acute kidney injury) Code(s): N17.9 - ACUTE KIDNEY FAILURE, UNSPECIFIED Status: Acute (2) Chronic kidney disease, stage 4 (severe) Code(s): N18.4 - CHRONIC KIDNEY DISEASE, STAGE 4 (SEVERE) Status: Chronic (3) Acute on chronic systolic ACC/AHA stage C congestive heart failure Code(s): I50.23 - ACUTE ON CHRONIC SYSTOLIC (CONGESTIVE) HEART FAILURE Status : Resolved (4) CAD (coronary artery disease) Code(s): I25.10 - ATHSCL HEART DISEASE OF [place] CORONARY ARTERY W/O ANG PCTRS Status: Chronic Qualifiers: Coronary Disease-Associated Artery/Lesion type: [place] artery [place] vs. 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 use: without residential use Diabetes mellitus complication status: with kidney complications Diabetes mellitus complication detail: with chronic kidney disease Chronic kidney disease stage : stage 4 (severe) Qualified Code(s): E11.22 - Type 2 diabetes mellitus with diabetic chronic kidney disease; N18.4 - Chronic kidney disease, stage 4 (severe ) (6) H/O prostate cancer Code(s): Z85.46 - PERSONAL HISTORY OF MALIGNANT NEOPLASM OF PROSTATE Status: Chronic (7) HTN (hypertension) Code(s): I10 - ESSENTIAL (PRIMARY) HYPERTENSION Status: Chronic Qualifiers: Hypertension type: essential hypertension Qualified Code(s): I10 - Essential (primary) hypertension (8) Moderate aortic stenosis by prior echocardiogram Code(s): I35.0 - NONRHEUMATIC AORTIC (VALVE) STENOSIS Status: Chronic (9) Pacemaker Code(s): Z95.0 - PRESENCE OF CARDIAC PACEMAKER Status: Chronic - Plan hemostable watch for renal function, gentle iv hydration per nephr adv d/w patient and family at bedside dc plan on Sunday to [place] continue asp, glipizide, imdur er echo showed ef of 35% with moderate to amb as tolerated
[2019-07-13] MEDS: Acetaminophen 325 MG TAB PO PRN (03:00)
[2019-07-13 05:27] LABS: Albumin 3.3 g/dL (3.4-4.8); Anion Gap 16 mmol/L (10-20); BUN (Urea Nitrogen) 85 mg/dL (8.4-25.7); BUN/Creatinine Ratio 24.15; Calc. Creatinine Clearance 15 mL/min (70-130); Calcium 8.8 mg/dL (7.8-10.44); Carbon Dioxide 22 mmol/L (23-31); Chloride 108 mmol/L (98-107); Estimated GFR-MDRD 17; Glucose 96 mg/dL (83-110); Phosphorus 2.9 mg/dL (2.3-4.7); Potassium 4.1 mmol/L (3.5-5.1); Sodium 142 mmol/L (136-145)
[2019-07-13] MEDS: glipiZIDE 5 MG TAB PO SCH (09:52)
[2019-07-13] MEDS: Aspirin 81 mg Enteric Coated Tablet PO SCH (09:53)
[2019-07-13] MEDS: Isosorbide Mononitrate (ER) 30 MG TAB PO SCH (09:53)
[2019-07-13] MEDS: Famotidine 20 MG TAB PO SCH (09:53)
--- NOTE | 2019-07-13 12:46 | PDOC.HOSPP ---
- Subjective Encounter Date: 07/13/19 Encounter Time: 10:45 Subjective: no sob or chest pain feels better eating well - Objective Vital Signs & Weight: Vital Signs (12 hours) Temp Pulse Resp BP Pulse Ox 07/13/19 11:55 98.1 F 88 16 102/68 96 07/13/19 07:50 94 L 07/13/19 07:41 98.3 F 87 18 110/65 94 L 07/13/19 04:00 98.5 F 96 16 108/75 93 L Weight Weight 162 lb I&O: 07/12/19 07/13/19 07/14/19 06:59 06:59 06:59 Intake Total 1300 900 537 Output Total 350 Balance 1300 550 537 Result Diagrams: 07/12/19 09:11 07/13/19 04:44 Additional Labs: Accuchecks 07/13/19 00:10 POC Glucose 101 Hospitalist ROS - Medication Medications: Active Medications Generic Name Dose Route Start Last Admin Trade Name Freq PRN Reason Stop Dose Admin Acetaminophen 650 mg 07/08/19 21:19 07/13/19 03:00 Tylenol PO 650 mg Q4H PRN Administration Headache/Fever/Mild Pain (1-3) Hydrocodone Bitart/Acetaminophen 1 tab 07/08/19 21:19 07/09/19 11:19 [place] 5/325 PO 1 tab Q4H PRN Administration Moderate Pain (4-6) Aspirin 81 mg 07/09/19 09:00 07/13/19 09:53 Ecotrin PO 81 mg DAILY OTILIA Administration Famotidine 20 mg 07/09/19 09:00 07/13/19 09:53 Pepcid PO 20 mg DAILY OTILIA Administration Glipizide 2.5 mg 07/10/19 07:30 07/13/19 09:52 Glucotrol PO 2.5 mg DAILY-AC OTILIA Administration Isosorbide Mononitrate 30 mg 07/09/19 09:00 07/13/19 09:53 Imdur Er PO 30 mg DAILY OTILIA Administration Sodium Chloride 10 ml 07/09/19 00:59 07/09/19 05:35 Flush - Normal Saline IVF 10 ml PRN PRN Administration Saline Flush - Exam General Appearance: awake alert Eye: PERRL, anicteric sclera ENT: no oropharyngeal lesions, moist mucosa Neck: supple, no JVD Heart: RRR, no murmur Respiratory: no wheezes, no rales, rhonchi Gastrointestinal: soft, non-tender, non-distended, normal bowel sounds Extremities: no cyanosis, no edema Neurological: cranial nerve grossly intact, no focal deficits Psychiatric: normal affect, A&O x 3 Hosp A/P (1) CRYSTAL (acute kidney injury) Code(s): N17.9 - ACUTE KIDNEY FAILURE, UNSPECIFIED Status: Acute (2) Chronic kidney disease, stage 4 (severe) Code(s): N18.4 - CHRONIC KIDNEY DISEASE, STAGE 4 (SEVERE) Status: Chronic (3) Acute on chronic systolic ACC/AHA stage C congestive heart failure Code(s): I50.23 - ACUTE ON CHRONIC SYSTOLIC (CONGESTIVE) HEART FAILURE Status : Resolved (4) CAD (coronary artery disease) Code(s): I25.10 - ATHSCL HEART DISEASE OF [place] CORONARY ARTERY W/O ANG PCTRS Status: Chronic Qualifiers: Coronary Disease-Associated Artery/Lesion type: [place] artery [place] vs. 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 Diabetes mellitus complication status: with kidney complications Diabetes mellitus complication detail: with chronic kidney disease Chronic kidney disease stage : stage 4 (severe) Qualified Code(s): E11.22 - Type 2 diabetes mellitus with diabetic chronic kidney disease; N18.4 - Chronic kidney disease, stage 4 (severe ) (6) H/O prostate cancer Code(s): Z85.46 - PERSONAL HISTORY OF MALIGNANT NEOPLASM OF PROSTATE Status: Chronic (7) HTN (hypertension) Code(s): I10 - ESSENTIAL (PRIMARY) HYPERTENSION Status: Chronic Qualifiers: Hypertension type: essential hypertension Qualified Code(s): I10 - Essential (primary) hypertension (8) Moderate aortic stenosis by prior echocardiogram Code(s): I35.0 - NONRHEUMATIC AORTIC (VALVE) STENOSIS Status: Chronic (9) Pacemaker Code(s): Z95.0 - PRESENCE OF CARDIAC PACEMAKER Status: Chronic - Plan hemostable renal function holding up, off iv fluids from this am per nephr adv. d/w patient at bedside dc plan on Sunday to [place] continue asp, glipizide, imdur er echo showed ef of 35% with moderate to amb as tolerated
[2019-07-13] MEDS: Sodium Chloride 0.9% 1,000 ML IV SCH (13:00)
--- NOTE | 2019-07-13 13:08 | PRG ---
DATE OF SERVICE: 07/13/2019 SUBJECTIVE: An 84-year-old gentleman being seen for acute kidney injury. The patient denied any nausea, vomiting, or chest pain. OBJECTIVE: CONSTITUTIONAL: On exam, the patient is awake and alert. VITAL SIGNS: Afebrile, pulse 75, breathing 16, and blood pressure 102/68. GENERAL APPEARANCE AND MENTAL STATUS: Fair. HEAD/NECK: Normocephalic. Atraumatic. EYES: EOMI. No deformity. EARS: Clear. No ulcers. NOSE: Intact. No lesions. MOUTH: Clear. No discharge. THROAT: Clear. No exudate. LUNGS: Clear. No crackles. CARDIAC: S1, S2. No rub. ABDOMEN: Benign. Bowel sounds positive. GENITALIA/RECTUM: Avina absent. BACK/EXTREMITIES: Edema 0+. NEUROLOGICAL: Alert and motor intact. SKIN: LYMPHATICS: LABORATORY DATA: Labs show hemoglobin 9.6. Creatinine 3.45. ASSESSMENT AND PLAN: 1. Acute kidney injury, improved. 2. Chronic kidney disease, stage 4, stable. 3. Hypertension, stable. 4. Anemia, stable. No indication for dialysis. 5. Hypercalcemia, resolved. Job ID: [id number]
[2019-07-14] MEDS: HYDROcodone/Acetaminophen 5/325 mg Tablet PO PRN ×2 (01:07→11:08)
[2019-07-14 05:19] VITALS: BMI 23.9
[2019-07-14] MEDS: glipiZIDE 5 MG TAB PO SCH (08:45)
[2019-07-14] MEDS: Famotidine 20 MG TAB PO SCH (08:46)
[2019-07-14] MEDS: Isosorbide Mononitrate (ER) 30 MG TAB PO SCH (08:46)
[2019-07-14] MEDS: Acetaminophen 325 MG TAB PO PRN (08:46)
[2019-07-14] MEDS: Aspirin 81 mg Enteric Coated Tablet PO SCH (08:46)
--- NOTE | 2019-07-14 08:55 | PRG ---
DATE OF SERVICE: 07/12/2019 SUBJECTIVE: This is an 84-year-old gentleman, being seen for acute kidney injury. The patient denied nausea, vomiting, or chest pain. OBJECTIVE: CONSTITUTIONAL: The patient is awake and alert. VITAL SIGNS: Afebrile, pulse 86, breathing 16, blood pressure 106/61. GENERAL APPEARANCE AND MENTAL STATUS: Fair. HEAD/NECK: Normocephalic. Atraumatic. EYES: EOMI. No deformity. EARS: Clear. No ulcers. NOSE: Intact. No lesions. MOUTH: Clear. No discharge. THROAT: Clear. No exudate. LUNGS: Clear. No crackles. CARDIAC: S1, S2. No rub. ABDOMEN: Benign. Bowel sounds positive. GENITALIA/RECTUM: Avina absent. BACK/EXTREMITIES: Edema 0+. NEUROLOGICAL: Alert and motor intact. SKIN:LYMPHATICS: LABORATORY DATA: Reviewed. ASSESSMENT AND PLAN: 1. Stage 4 chronic kidney disease. Follow labs. 2. Hypertension, stable. 3. Anemia, stable. 4. Medication based on GFR appropriate. Continue hydration. Job ID: [id number]
--- NOTE | 2019-07-14 10:10 | CT ---
CT Pelvis WO Con HISTORY: Fall with right hip pain COMPARISON: None. FINDINGS: The SI joints are symmetric in appearance. There is no signs of any sacral fracture. Minimal arthritic changes of both hips are present. There is no evidence of any right hip fracture. A cetabulum is intact. Incidental note is made of moderately severe sigmoid diverticulosis. IMPRESSION: No CT evidence for fracture.
--- NOTE | 2019-07-14 11:01 | PDOC.HOSPP ---
- Subjective Encounter Date: 07/14/19 Encounter Time: 09:30 Subjective: c/o right hip and unable to bed his knee no sob or palp son at bedside - Objective Vital Signs & Weight: Vital Signs (12 hours) Temp Pulse Resp BP Pulse Ox 07/14/19 07:33 98 F 93 16 120/75 96 07/14/19 07:20 95 07/14/19 03:24 97.7 F 93 20 113/78 95 07/13/19 23:29 98 F 97 20 123/75 94 L Weight Weight 153 lb I&O: 07/13/19 07/14/19 07/15/19 06:59 06:59 06:59 Intake Total 900 1137 300 Output Total 350 Balance 550 1137 300 Result Diagrams: 07/12/19 09:11 07/13/19 04:44 Hospitalist ROS - Medication Medications: Active Medications Generic Name Dose Route Start Last Admin Trade Name Freq PRN Reason Stop Dose Admin Acetaminophen 650 mg 07/08/19 21:19 07/14/19 08:46 Tylenol PO 650 mg Q4H PRN Administration Headache/Fever/Mild Pain (1-3) Hydrocodone Bitart/Acetaminophen 1 tab 07/08/19 21:19 07/14/19 01:07 [place] 5/325 PO 1 tab Q4H PRN Administration Moderate Pain (4-6) Aspirin 81 mg 07/09/19 09:00 07/14/19 08:46 Ecotrin PO 81 mg DAILY OTILIA Administration Bisacodyl 10 mg 07/08/19 21:19 07/13/19 15:30 Dulcolax PO 10 mg DAILYPRN PRN Administration Constipation Famotidine 20 mg 07/09/19 09:00 07/14/19 08:46 Pepcid PO 20 mg DAILY OTILIA Administration Glipizide 2.5 mg 07/10/19 07:30 07/14/19 08:45 Glucotrol PO 2.5 mg DAILY-AC OTILIA Administration Isosorbide Mononitrate 30 mg 07/09/19 09:00 07/14/19 08:46 Imdur Er PO 30 mg DAILY OTILIA Administration Sodium Chloride 10 ml 07/09/19 00:59 07/09/19 05:35 Flush - Normal Saline IVF 10 ml PRN PRN Administration Saline Flush - Exam General Appearance: NAD, awake alert Eye: PERRL, anicteric sclera ENT: no oropharyngeal lesions, moist mucosa Neck: supple, no JVD Heart: RRR, no murmur Respiratory: no wheezes, no rales Gastrointestinal: soft, non-tender, non-distended, normal bowel sounds Extremities: no cyanosis, no edema Neurological: cranial nerve grossly intact, no focal deficits Psychiatric: A&O x 3 Hosp A/P (1) CRYSTAL (acute kidney injury) Code(s): N17.9 - ACUTE KIDNEY FAILURE, UNSPECIFIED Status: Acute (2) Chronic kidney disease, stage 4 (severe) Code(s): N18.4 - CHRONIC KIDNEY DISEASE, STAGE 4 (SEVERE) Status: Chronic (3) Acute on chronic systolic ACC/AHA stage C congestive heart failure Code(s): I50.23 - ACUTE ON CHRONIC SYSTOLIC (CONGESTIVE) HEART FAILURE Status : Resolved (4) CAD (coronary artery disease) Code(s): I25.10 - ATHSCL HEART DISEASE OF [place] CORONARY ARTERY W/O ANG PCTRS Status: Chronic Qualifiers: Coronary Disease-Associated Artery/Lesion type: [place] artery [place] vs. 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 use: without termite control service representative use Diabetes mellitus complication status: with kidney complications Diabetes mellitus complication detail: with chronic kidney disease Chronic kidney disease stage : stage 4 (severe) Qualified Code(s): E11.22 - Type 2 diabetes mellitus with diabetic chronic kidney disease; N18.4 - Chronic kidney disease, stage 4 (severe ) (6) H/O prostate cancer Code(s): Z85.46 - PERSONAL HISTORY OF MALIGNANT NEOPLASM OF PROSTATE Status: Chronic (7) HTN (hypertension) Code(s): I10 - ESSENTIAL (PRIMARY) HYPERTENSION Status: Chronic Qualifiers: Hypertension type: essential hypertension Qualified Code(s): I10 - Essential (primary) hypertension (8) Moderate aortic stenosis by prior echocardiogram Code(s): I35.0 - NONRHEUMATIC AORTIC (VALVE) STENOSIS Status: Chronic (9) Pacemaker Code(s): Z95.0 - PRESENCE OF CARDIAC PACEMAKER Status: Chronic - Plan Pelvic CT scan does not show any fracture in right hip, has osteoarthritic changes in both hips. hemostable renal function holding up, bmp q3days at snf d/w patient and son at bedside dc plan to [place] today if he ambulates with PT continue asp, glipizide, imdur er echo showed ef of 35% with moderate to amb as tolerated
[2019-07-14 11:44] VITALS: TEMP 98.5
--- NOTE | 2019-07-14 12:21 | PRG ---
DATE OF SERVICE: 07/14/2019 SUBJECTIVE: Patient was seen and examined at bedside and overnight events noted. Patient denies any shortness of breath or chest pain or palpitation. No history of nausea or vomiting or diarrhea or fever or chills or cramps. OBJECTIVE: GENERAL: This is an elderly male, in no apparent distress. VITAL SIGNS: Temperature 98.0. Heart rate 93. Respiratory rate 16. Blood pressure 120/75. HEENT: Atraumatic, normocephalic. Oral mucosa is moist NECK: Supple. CARDIOVASCULAR: S1, S2 heard. Rate and rhythm regular. RESPIRATORY: Clear to auscultation. GASTROINTESTINAL: Abdomen is soft. MUSCULOSKELETAL: No tenderness. No edema. DERMATOLOGIC: No skin rash. NEUROLOGIC: Alert and awake and oriented X3. No focal neurologic deficits. Moving all the extremities. PSYCHIATRIC: Mood and affect normal. LABORATORY DATA: Potassium is 4.1, BUN of 85, creatinine is 3.5. ASSESSMENT AND PLAN: 1. Acute kidney injury on chronic kidney disease, stage 4, slightly better. 2. Acidosis. 3. History of hypertension. 4. History of anemia. 5. Hypercalcemia, better. 6. Labs, slightly better. 7. Plan is to send the patient to SNF today. Advised to follow up with the clinic with Dr. Goodman. We will follow. Job ID: [id number]
[2019-07-14 13:11] VITALS: BP 119/69
--- NOTE | 2019-07-14 16:48 | DIS ---
DATE OF ADMISSION: 07/08/2019 DATE OF DISCHARGE: 07/14/2019 PRIMARY DISCHARGE DIAGNOSES: Acute kidney injury with history of chronic kidney disease, stage 4; acute on chronic congestive heart failure exacerbation with systolic dysfunction, ACC stage C; coronary artery disease; diabetes mellitus, type 2; history of prostate cancer; moderate aortic stenosis; hypertension; pacemaker. PROCEDURES DONE DURING HOSPITALIZATION: Chest x-ray done showed cardiomegaly with mild pulmonary vascular congestion. Echo with 2D Doppler done showed EF of 35% to 40%. Moderate to severe aortic stenosis. Aortic valve peak velocity was 179 cm2. Aortic valve peak gradient 12.83. Aortic valve mean velocity was 149.8 cm2. Aortic valve mean gradient was 9.32 mmHg. Pelvic CAT scan done showed no evidence of right hip fracture or any other fracture. There is incidental finding of severe sigmoid diverticulosis seen. H and H of 11 and 34, platelet count 111, MCV 95. BUN 85, creatinine 3.5 on the day of discharge. Serum bicarb 22. BNP 959.4. Calcium levels were 13.8. Albumin was 4.3 on the day of admission. Calcium levels were 8.8 on the . DISCHARGE MEDICATIONS: 1. Allopurinol 100 mg p.o. daily. 2. Aspirin 81 mg p.o. daily. 3. Lasix 20 mg p.o. daily. 4. Glipizide 2.5 mg p.o. daily. 5. Coreg 6.25 mg p.o. twice daily. 6. Imdur extended release 30 mg p.o. daily. ALLERGIES: PENICILLIN. INPATIENT CONSULT: Dr. Plascencia for Cardiology. Dr. Goodman for Nephrology. DISCHARGE PLAN: The patient to follow up with his primary care physician, Dr. Pee Adames, in 1 week, Dr. Clarke in 2 to 3 weeks, Dr. Goodman in 1 week. He will have basic metabolic panel done every 3 days. The results will be faxed to Dr. Goodman, [employer]. BRIEF COURSE DURING HOSPITALIZATION: The patient initially got admitted on the with complaints of weakness and exertional shortness of breath. He was essentially admitted for CHF exacerbation with systolic dysfunction. The patient also had chronic kidney disease, stage 4, which got worse with acute kidney injury with diuresis. He also had hypercalcemia on admission, which got resolved with gentle fluid resuscitation in view of CHF. The patient's acute kidney injury is slowly resolving. It is beginning to trend down. He has been ambulating with physical therapy. On the day of discharge, the patient developed right hip pain for which a pelvic CAT scan was obtained, which did not reveal any fractures. Subsequent to this, the patient ambulated with therapy. He has been accepted to [facility] and will be shortly discharged. A total of 35 minutes was spent on discharge plan. Please see a [id number] documentation for the day of discharge on [employer]. Job ID: [id number]
== END 2019-07-14 12:39 | DRG 280 ==
LOC: ERS 18:45 → 2SE 23:43 → OBSVTOIN 23:43
PROVIDERS: ADMIT Internal Medicine; ATTEND Internal Medicine
DX: I13.0 Hypertensive heart and chronic kidney disease with heart failure and stage 1 through stage 4 chronic kidney disease, or unspecified chronic kidney disease (principal); I50.43 Acute on chronic combined systolic (congestive) and diastolic (congestive) heart failure; I21.A1 Myocardial infarction type 2; N17.9 Acute kidney failure, unspecified; N18.4 Chronic kidney disease, stage 4 (severe); K57.32 Diverticulitis of large intestine without perforation or abscess without bleeding; E87.2 Acidosis; E11.22 Type 2 diabetes mellitus with diabetic chronic kidney disease; K59.00 Constipation, unspecified; C61 Malignant neoplasm of prostate; I25.10 Atherosclerotic heart disease of native coronary artery without angina pectoris; E83.52 Hypercalcemia; E87.5 Hyperkalemia; D63.1 Anemia in chronic kidney disease; E83.42 Hypomagnesemia; I35.0 Nonrheumatic aortic (valve) stenosis; E78.5 Hyperlipidemia, unspecified; M89.49 Other hypertrophic osteoarthropathy, multiple sites; Z95.0 Presence of cardiac pacemaker; Z87.891 Personal history of nicotine dependence; Z88.0 Allergy status to penicillin
CPT/HCPCS: 36415; 36416; 71046; 72192; 76770; 80048; 80053; 80069; 81001; 82306; 82330; 82553; 83735; 83880; 83970; 84100; 84484; 85025; 87040; 93005; 93306; 93798; 96372; 96374; 96375; J0630; J1650; J1940; J2405; J3489; J3490; Q0177

== ENCOUNTER 2019-07-23 15:56 | Emergency (ER) | payer MEDICARE, OTHER ==
[2019-07-23] MEDS ORDERED: Nitroglycerin 2% Ointment 1 INCH/1 GM Packet ONE (16:11)
[2019-07-23 16:41] LABS: #Basophils 0.1 thou/uL (0.0-0.2); #Eosinphils 1.1 thou/uL (0.0-0.7); #Lymphocytes 1.3 thou/uL (1.20-3.40); #Monocytes 0.6 thou/uL (0.11-0.59); %Eosinophils 15.8 % (0.0-10.0); %Lymphocytes 17.8 % (21.0-51.0); %Monocytes 8.2 % (0.0-10.0); %Neutrophils 57.2 % (42.0-75.0); Hemoglobin 10.4 g/dL (14.0-18.0); Mean Corpuscular HGB CONC 33.3 g/dL (32.0-36.0); Mean Corpuscular Hemoglobin 31.5 pg (27.0-31.0); Mean Corpuscular Volume 94.6 fL (78.0-98.0); Mean Platelet Volume 8.2 fL (7.4-10.4); Platelet Count 174 thou/uL (130-400); RBC Distribution Width 13.5 % (11.5-14.5); Red Blood Cell (RBC) Count 3.29 mill/uL (4.70-6.10)
--- NOTE | 2019-07-23 16:51 | RAD ---
EXAM: XR Chest 1 View Portable PROVIDED CLINICAL HISTORY: Chest pain COMPARISON: 07/08/2019 FINDINGS: Cardiomegaly, cardiac pacing device and atherosclerosis are redemonstrated. Prominence of the pulmona ry vasculature and pulmonary interstitium again seen. Elevation of the right hemidiaphragm is stable. No evidence for lobar consolidation, pleural fluid or pneumothorax. IMPRESSION: Stable radiographic appearance of the chest.
[2019-07-23 17:13] LABS: ALT (SGPT) 9 U/L (8-55); AST (SGOT) 13 U/L (5-34); Albumin 3.5 g/dL (3.4-4.8); Alkaline Phosphatase 93 U/L (40-110); Anion Gap 16 mmol/L (10-20); BUN (Urea Nitrogen) 45 mg/dL (8.4-25.7); Bilirubin, Total 0.7 mg/dL (0.2-1.2); CK (CPK) 52 U/L (30-200); Calc. Creatinine Clearance 0 mL/min (70-130); Calcium 6.6 mg/dL (7.8-10.44); Carbon Dioxide 19 mmol/L (23-31); Chloride 106 mmol/L (98-107); Estimated GFR-MDRD 29; Globulin 3.3 g/dL (2.4-3.5); Glucose 79 mg/dL (83-110); Lipase 18 U/L (8-78); Potassium 4.2 mmol/L (3.5-5.1); Protein, Total 6.8 g/dL (5.8-8.1); Sodium 137 mmol/L (136-145)
[2019-07-23 17:30] LABS: Bilirubin Negative (Negative); Blood, Urine Negative (Negative); Clarity Clear (Clear); Glucose, Urine (Dipstick) Normal (Negative); Leukocyte Negative Leu/uL (Negative); Nitrite Negative (Negative); Protein, Urine (Dipstick) 20 mg/dL (Neg-Trace); Urobilinogen Normal mg/dL (Less than 2)
[2019-07-23 19:05] LABS: Troponin I Less than 0.010 ng/mL (< 0.028)
== END 2019-07-23 20:00 | disposition home or self-care (01) ==
LOC: ERS 15:56
DX: I20.8 Other forms of angina pectoris (principal); N28.9 Disorder of kidney and ureter, unspecified; I10 Essential (primary) hypertension; I25.2 Old myocardial infarction; E11.9 Type 2 diabetes mellitus without complications; F32.9 Major depressive disorder, single episode, unspecified; Z87.891 Personal history of nicotine dependence; Z79.899 Other long term (current) drug therapy
CPT/HCPCS: 36415; 71045; 80053; 81003; 82550; 83690; 83880; 84484; 85025; 93005; 96360